=== PATIENT | female | born 1980 | race Caucasian/White ===

== ENCOUNTER 2018-09-27 14:04 | Emergency (ER) | payer OTHER ==
--- OUTSIDE RECORDS SUMMARY | 2018-09-27 14:06 | XMS REPORT | Clinical Summary ---
:1980 Author Organization [facility] Address [address] [place] [address] Care Team Providers Name Role Phone Jono Nunez Primary Care Provider Allergies No Known Allergies Medications Medication Sig Dispensed Refills Start Date End Date Status desvenlafaxine Take 100 mg by 0 Active succinate (PRISTIQ) 50 mouth daily . MG 24 hr tablet morphine (MS CONTIN) Take 15 mg by 0 Active 15 MG 12 hr tablet mouth 2 (two) times daily. naloxegol 12.5 mg Oral Take 25 mg by 0 Active Tab tablet mouth daily. morphine-naltrexone Take by mouth 0 Active (EMBEDA) 30-1.2 mg daily. CEPO pregabalin (LYRICA) Take 150 mg by 0 Active 150 MG capsule mouth 2 (two) times daily. celecoxib (CELEBREX) Take 200 mg by 0 Active 200 MG capsule mouth every 12 (twelve) hours as needed for Pain. estradiol (ESTRING) 2 Place 2 mg 0 Active mg (7.5 mcg /24 hour) vaginally every 3 vaginal ring (three) months follow package directions . melatonin 3 mg Tab Take by mouth. 0 Active tablet oxyCODONE-acetaminophe Take 1 tablet by 0 Active n (PERCOCET) 10-325 mg mouth every 6 per tablet (six) hours as needed for Pain. Active Problems Problem Noted Date S/P cervical spinal fusion 02/01/2017 Neck pain 01/19/2017 Cervical radiculopathy 01/19/2017 Cervical herniated disc 01/19/2017 Family History Medical History Relation Name Comments Unremarkable Neg Hx Social History Tobacco Use Types Packs/Day Years Used Date Never Smoker Smokeless Tobacco: Never Used Alcohol Use Drinks/Week oz/Week Comments Yes 4 Standard drinks or equivalent 2.0 Sex Assigned at Date Recorded Not on file Job Start Date Occupation Industry Not on file Not on file Not on file Travel History Travel Start Travel End No recent travel history available. Last Filed Vital Signs Not on file Plan of Treatment Not on file Implants Implanted Type Area Ceramic Designer Device Shelf Model / Identifier Expiration Serial / Date Lot Matrix Floseal Hemo W/O Ndl 10 [id number] - [id number] Cement/Fi N/A: Spine KAUR:BIOSCI 05/05/2018 [id number] / Implanted: Qty: 1 on 02/01/2017 by Bar Hamilton MD ller/Adhe / sive [id number] Disc Prodisc-C Med Deep 5mm - [id number] Spine N/A: Spine SYNTHES:SYNTHES 08/11/2020 [id number] / Implanted: Qty: 1 on 02/01/2017 by Bar Hamilton MD Cervical [place]: SPINE / [id number] Retainer Screw N/A: Spine [id number] / Implanted: Qty: 2 on 02/01/2017 by Bar Hamilton MD Cervical / Results Not on fileafter 09/26/2017 Insurance Payer Benefit Plan / Subscriber ID Type Phone Address Group MEDICAID - MEDICAID MEDICAID COMM xxxxxxxxx Medicaid Contracted [facility] CHO[facility] Advance Directives For more information, please contact:[address] [phone] Code Status Date Activated Date Inactivated Comments Full Code 01/19/2017 9:09 AM 01/19/2017 9:23 AM This code status was determined by: Patient
--- OUTSIDE RECORDS SUMMARY | 2018-09-27 14:06 | XMS REPORT ---
:1980 [facility] Address [address] [place] [address] Care Team Providers Name Role Phone ELLEN AVILES Unavailable Unavailable Problems This patient has no known problems. Allergies, Adverse Reactions, Alerts This patient has no known allergies or adverse reactions. Medications This patient has no known medications. Results Test Description Test Time Test Comments Text Results Atomic Results Result Comments CBC W/PLT COUNT & AUTO DIFFERENTIAL 2017-02-01 09:41:00 Test Item Value Reference Range Comments WHITE BLOOD CELL COUNT (BEAKER) (test bkvr=540) 7.4 K/ L 4.0-10.0 RED BLOOD CELL COUNT (BEAKER) (test wdpf=874) 4.29 M/ L 4.00-5.00 HEMOGLOBIN (BEAKER) (test kkqa=830) 13.7 GM/DL 12.0-15.0 HEMATOCRIT (BEAKER) (test xfxk=316) 40.7 % 36.0-45.0 MEAN CORPUSCULAR VOLUME (BEAKER) (test fgfs=677) 94.8 fL 82.0-99.0 MEAN CORPUSCULAR HEMOGLOBIN (BEAKER) (test vtcw=660) 31.8 pg 27.0-33.0 MEAN CORPUSCULAR HEMOGLOBIN CONC (BEAKER) (test msnc=672) 33.6 GM/DL 32.0- 36.0 RED CELL DISTRIBUTION WIDTH (BEAKER) (test wkdd=658) 12.8 % 12.0-15.0 PLATELET COUNT (BEAKER) (test mryo=167) 211 K/CU MM 150-430 MEAN PLATELET VOLUME (BEAKER) (test kiwg=155) 8.4 fL 6.5-10.5 NUCLEATED RED BLOOD CELLS (BEAKER) (test xbed=490) 0 /100 WBC 0-0 NEUTROPHILS RELATIVE PERCENT (BEAKER) (test ujkc=303) 59 % LYMPHOCYTES RELATIVE PERCENT (BEAKER) (test wrkz=928) 34 % MONOCYTES RELATIVE PERCENT (BEAKER) (test wufo=488) 6 % EOSINOPHILS RELATIVE PERCENT (BEAKER) (test tquw=517) 1 % BASOPHILS RELATIVE PERCENT (BEAKER) (test yeub=176) 1 % NEUTROPHILS ABSOLUTE COUNT (BEAKER) (test cgfv=682) 4.40 K/ L 1.80-8.00 LYMPHOCYTES ABSOLUTE COUNT (BEAKER) (test oxgp=575) 2.50 K/ L 1.48-4.50 MONOCYTES ABSOLUTE COUNT (BEAKER) (test ilxy=725) 0.40 K/ L 0.00-1.30 EOSINOPHILS ABSOLUTE COUNT (BEAKER) (test qeic=163) 0.10 K/ L 0.00-0.50 BASOPHILS ABSOLUTE COUNT (BEAKER) (test usvu=747) 0.00 K/ L 0.00-0.20 BASIC METABOLIC [id number] 14:58:00 Test Item Value Reference Range Comments SODIUM (BEAKER) (test 141 meq/L 135-148 nuhy=000) POTASSIUM (BEAKER) (test 4.1 meq/L 3.5-5.5 jjkd=072) CHLORIDE (BEAKER) (test 106 meq/L 98-106 wjhq=328) CO2 (BEAKER) (test 27 meq/L 20-31 sfal=567) BLOOD UREA NITROGEN 13 mg/dL 10-26 (BEAKER) (test qcfy=479) CREATININE (BEAKER) (test 0.75 mg/dL 0.50-1.20 aqwo=762) GLUCOSE RANDOM (BEAKER) 103 mg/dL 70-110 (test dssb=102) CALCIUM (BEAKER) (test 9.3 mg/dL 8.5-10.5 pluu=944) EGFR (BEAKER) (test 87 mL/min/1.73 sq m ESTIMATED GFR IS NOT vmzf=5803) ACCURATE CREATININE CLEARANCE IN PREDICTING GLOMERULAR FILTRATION RATE. ESTIMATED GFR IS NOT APPLICABLE FOR DIALYSIS PATIENTS. CBC W/PLT COUNT & AUTO [id number] 14:40:00 Test Item Value Reference Range Comments WHITE BLOOD CELL COUNT (BEAKER) (test yswf=929) 7.7 K/ L 4.0-10.0 RED BLOOD CELL COUNT (BEAKER) (test lqja=207) 4.39 M/ L 4.00-5.00 HEMOGLOBIN (BEAKER) (test hfkt=628) 14.1 GM/DL 12.0-15.0 HEMATOCRIT (BEAKER) (test jbdh=676) 42.1 % 36.0-45.0 MEAN CORPUSCULAR VOLUME (BEAKER) (test albq=365) 95.9 fL 82.0-99.0 MEAN CORPUSCULAR HEMOGLOBIN (BEAKER) (test 32.2 pg 27.0-33.0 ifjw=732) MEAN CORPUSCULAR HEMOGLOBIN CONC (BEAKER) (test 33.6 GM/DL 32.0-36.0 twxe=380) RED CELL DISTRIBUTION WIDTH (BEAKER) (test 13.6 % 12.0-15.0 pklz=436) PLATELET COUNT (BEAKER) (test fwjq=604) 199 K/CU MM 150-430 MEAN PLATELET VOLUME (BEAKER) (test qdxi=038) 8.6 fL 6.5-10.5 NUCLEATED RED BLOOD CELLS (BEAKER) (test 0 /100 WBC 0-0 dbcv=030) NEUTROPHILS RELATIVE PERCENT (BEAKER) (test 53 % kzmp=697) LYMPHOCYTES RELATIVE PERCENT (BEAKER) (test 37 % bbsz=910) MONOCYTES RELATIVE PERCENT (BEAKER) (test 8 % khbi=060) EOSINOPHILS RELATIVE PERCENT (BEAKER) (test 2 % klal=147) BASOPHILS RELATIVE PERCENT (BEAKER) (test 1 % tosg=610) NEUTROPHILS ABSOLUTE COUNT (BEAKER) (test 4.00 K/ L 1.80-8.00 sczi=513) LYMPHOCYTES ABSOLUTE COUNT (BEAKER) (test 2.80 K/ L 1.48-4.50 naew=315) MONOCYTES ABSOLUTE COUNT (BEAKER) (test 0.60 K/ L 0.00-1.30 kvjs=095) EOSINOPHILS ABSOLUTE COUNT (BEAKER) (test 0.10 K/ L 0.00-0.50 upju=970) BASOPHILS ABSOLUTE COUNT (BEAKER) (test 0.00 K/ L 0.00-0.20 yiho=583)
--- NOTE | 2018-09-27 15:55 | RAD REPORT ---
EXAM DESCRIPTION: RAD - Chest Single View - 09/27/2018 3:45 pm CLINICAL HISTORY: COUGH Chest pain. COMPARISON: CHEST SINGLE VIEW dated 06/26/2015; CHEST SINGLE VIEW dated 11/09/2014; ABDOMEN ACUTE SERI ES dated 10/23/2007 FINDINGS: Portable technique limits examination quality. The lungs are grossly clear. The heart is normal in size. No displaced fractures. IMPRESSION: No acute intrathoracic process suspected.
[2018-09-27 16:05] LABS: Absolute Monocytes 0.6 K/uL (0.1-1.3); Absolute Neutrophil 5.6 K/uL (1.8-8.0); Basophils % 0.6 % (0-1.3); Eosinophils % 0.6 % (0-4.4); Hematocrit 41.6 % (36.0-45.0); Lymphocytes % 24.4 % (15.3-44.8); Monocytes % 7.5 % (3.3-12.3); RBC Red Blood Cell Count 4.16 M/uL (3.86-4.86)
[2018-09-27 16:06] LABS: Protime INR 0.99
[2018-09-27] MEDS ORDERED: PROMETHAZINE 25 MG/ML VIAL ONE ×2 (16:08→16:44)
[2018-09-27] MEDS ORDERED: FAMOTIDINE 20 MG/2 ML VIAL IV ONE (16:08)
[2018-09-27] MEDS ORDERED: NA CHLORIDE 0.9% 2,000 ML ONE (16:08)
[2018-09-27 16:13] LABS: Barbiturates POSITIVE (NEGATIVE); Benzodiazepines NEGATIVE (NEGATIVE); Cocaine NEGATIVE (NEGATIVE); METHAMPHETAM NEGATIVE (NEGATIVE); Methadone NEGATIVE (NEGATIVE); Opiates NEGATIVE (NEGATIVE); Phencyclidine NEGATIVE (NEGATIVE); THC Cannibis POSITIVE (NEGATIVE)
[2018-09-27 16:21] LABS: ALT/SGPT 57 U/L (12-78); AST/SGOT 22 U/L (15-37); Albumin 3.7 g/dL (3.4-5.0); Alkaline Phosphatase 67 U/L (45-117); BUN Blood Urea Nitrogen 14 mg/dL (7-18); Bicarbonate 25 mmol/L (21-32); Bilirubin Direct < 0.1 mg/dL (0-0.2); Bilirubin Total 0.3 mg/dL (0.2-1.0); Glucose Level 87 mg/dL (74-106); Lipase 73 U/L (73-393); Magnesium 2.3 mg/dL (1.8-2.4); NT PRO-BNP 9 pg/mL (<125); Potassium 4.1 mmol/L (3.5-5.1); Sodium Level 142 mmol/L (136-145); Troponin (Emerg Dept Use Only) < 0.02 ng/mL (0.0-0.045)
--- NOTE | 2018-09-27 17:10 | EKG ---
Test Date: 2018-09-27 Test Time: 14:13:34 Supervisor Powdered Metal: SEAN-Shirley MEASUREMENT RESULTS: Intervals: Rate: 132 AK: 140 QRSD: 68 QT: 294 QTc: 435 [place]: P: 50 AK: 140 QRS: 63 T: 84 INTERPRETIVE STATEMENTS: Sinus tachycardia Possible Left atrial enlargement Septal infarct, age undetermined Non specific ST abnrmality Abnormal ECG Compared to ECG 06/26/2015 12:42:29 ST (T wave) deviation now present Sinus rhythm no longer present Myocardial infarct finding still present Electronically Signed On 09-27-18 17:09:33 CDT by Ghanshyam Sagastume
--- NOTE | 2018-09-27 17:29 | RAD REPORT ---
EXAM DESCRIPTION: CTAbdomen Pelvis W Contrast - 09/27/2018 5:19 pm CLINICAL HISTORY: Abdominal pain. ABD PAIN COMPARISON: Abdomen Pelvis W Contrast dated 12/31/2016; CT ABD PELVIS W CONTRAST dated 11/09/2014; C T ABD PELVIS W CONTRAST dated 04/10/2013; CT ABD PELVIS W CONTRAST dated 10/24/2007bdomen Pelvis W Contrast dated 12/31/2016; CT ABD PELVIS W CONTRAST dated 11/09/2014; CT ABD PELVIS W CONTRAST dated ; CT ABD PELVIS W CONTRAST dated 10/24/2007; MRI ABDOMEN W WO CONTRAST dated 04/11/2013 TECHNIQUE: Biphasic CT imaging of the abdomen and pelvis was performed with 100 ml non-ionic IV cont rast. All CT scans are performed using dose optimization technique as appropriate and may include automated exposure control or mA/KV adjustment according to patient size. FINDINGS: Heavily calcified granuloma is present in the left lung base posteriorly. The liver contains several small cysts, benign in appearance. Several enhancing lesions are also pres ent which appear progressive since the comparative studies. Benign etiology, however, is suspected fo r these lesions such as multiple hemangiomas. Cholecystectomy clips. The spleen, right adrenal gland and pancreas are within normal limits. Prominent cyst is present in t he left kidney measuring 3 cm. Stable left adrenal mass measuring 2.8 cm. No bowel obstruction, free air, free fluid or abscess. Mild sigmoid diverticulosis without diverticul itis. Appendectomy. No evidence of significant lymphadenopathy. No suspicious bony findings. IMPRESSION: Several small enhancing liver lesions are present, mildly progressive in size since comp arative studies, however most compatible with multiple hemangiomas. Stable left adrenal mass. No acute abnormality is detected.
--- NOTE | 2018-09-27 17:34 | ER ---
Nurse's Notes [facility] Name: Chantal Navarro Age: 38 yrs Sex: Female : 1980 Arrival Date: 09/27/2018 Time: 14:06 Bed 4 Private MD: Cristofer Ayala E Diagnosis: Abdominal tenderness;Nausea and vomiting;Nausea Presentation: 09/27 14:08 Presenting complaint: Patient states: lower abd pain, low back pain, midsternal chest sv pain started yesterday. Was dx with kidney infection 1.5 weeks ago and placed on Augmentin and has finished that med. Transition of care: patient was not received from another setting of care. Onset of symptoms was September 26, 2018. Care prior to arrival: None. 14:08 Method Of Arrival: Ambulatory sv 14:08 Acuity: GARRETT 2 sv 14:30 Risk Assessment: Do you want to hurt yourself or someone else? Patient reports no ph desire to harm self or others. Initial Sepsis Screen: Does the patient meet any 2 criteria? No. Patient's initial sepsis screen is negative. Does the patient have a suspected source of infection? No. Patient's initial sepsis screen is negative. Historical: - Allergies: 14:11 No Known Allergies; sv - PMHx: 14:11 chronic neck and back pain; Depression; sv - PSHx: 14:11 Hysterectomy; Appendectomy; MASS REMOVAL R breast; Cholecystectomy; Tonsillectomy; sv POLYPS removed from colon; right knee; L ankle; - Immunization history:: Adult Immunizations unknown. - Social history:: Smoking status: Patient/guardian denies using tobacco. - Family history:: not pertinent. - Ebola Screening: : No symptoms or risks identified at this time. Screenin:34 Abuse screen: Denies threats or abuse. Denies injuries from another. Nutritional ph screening: No deficits noted. Tuberculosis screening: No symptoms or risk factors identified. Fall Risk None identified. Assessment: 15:00 General: Appears in no apparent distress. uncomfortable, ill, Behavior is calm, ph cooperative, appropriate for age. Pain: Complains of pain in lumbar area, left low back and right low back Pain radiates to suprapubic area, right lower quadrant and left lower quadrant. Neuro: Level of Consciousness is awake, alert, obeys commands, Oriented to person, place, time, situation, Reports dizziness, weakness in "all over". Cardiovascular: Capillary refill < 3 seconds in bilateral fingers Patient's skin is warm and dry. Respiratory: Airway is patent Respiratory effort is even, unlabored, Respiratory pattern is regular, symmetrical. GI: Abdomen is round non-distended, Bowel sounds present X 4 quads. Abd is soft X 4 quads Abdomen is tender to palpation X 4 quads. Reports diarrhea, nausea, Patient currently denies vomiting. : Reports pain in bilateral in suprapubic area flank(s), lower quadrant(s) in lower back Denies burning with urination, inability to void. Derm: Skin is intact, Skin is pale. Musculoskeletal: Circulation, motion, and sensation intact. Range of motion: intact in all extremities. 16:35 Reassessment: Patient appears in no apparent distress at this time. Patient and/or ph family updated on plan of care and expected duration. Pain level reassessed. Patient is alert, oriented x 3, equal unlabored respirations, skin warm/dry/pink. Pt reports that nausea has not improved, ERP notified, see MAR. 17:03 Reassessment: Patient appears in no apparent distress at this time. Patient and/or ph family updated on plan of care and expected duration. Pain level reassessed. Patient is alert, oriented x 3, equal unlabored respirations, skin warm/dry/pink. Pt taken to CT via stretcher. Vital Signs: 14:11 BP 113 / 96; Pulse 130; Resp 20; Temp 98.4; Pulse Ox 96% ; Weight 77.11 kg; Height 5 sv ft. 2 in. (157.48 cm); Pain 8/10; 15:30 BP 110 / 79; Pulse 105; Resp 18; Pulse Ox 98% on R/A; ph 16:30 BP 105 / 81; Pulse 95; Resp 16; Pulse Ox 98% on R/A; ph 17:30 BP 107 / 78; Pulse 87; Resp 18; Temp 98.0; Pulse Ox 99% on R/A; ph 14:11 Body Mass Index 31.09 (77.11 kg, 157.48 cm) sv ED Course: 14:06 Patient arrived in ED. mr 14:06 Cristofer Ayala MD is Private Physician. mr 14:10 Triage completed. sv 14:11 Arm band placed on. sv 14:19 EKG done, by technical service representative. reviewed by Mao Rodriguez MD. sm3 14:23 Mao Rodriguez MD is Attending Physician. jose miguel 15:33 Theresa Burton RN is Primary Nurse. ph 15:34 Inserted saline lock: 20 gauge in right hand, using aseptic technique. Missed ph attempt(s): 22 gauge in right antecubital area. Bleeding controlled, band aid applied, catheter tip intact. 15:35 Patient has correct armband on for positive identification. ph 15:45 XRAY Chest (1 view) In Process Unspecified. EDMS 16:06 Basic Metabolic Panel Sent. ph 16:[address] 2 17:07 No provider procedures requiring assistance completed. ph 17:19 CT Abd/Pelvis - W/Contrast In Process Unspecified. EDMS 17:33 Cristofer Ayala MD is Referral Physician. jose miguel 17:33 Maynor Dinero MD is Referral Physician. jose miguel 17:55 IV discontinued, intact, bleeding controlled, No redness/swelling at site. Pressure ph dressing applied. Administered Medications: 16:03 Drug: NS 0.9% 1000 ml Route: IV; Rate: 1 bolus; Site: right hand; ph 16:03 Drug: NS 0.9% 1000 ml Route: IV; Rate: 1 bolus; Site: right hand; ph 16:05 Drug: Phenergan 12.5 mg Route: IVP; Site: right hand; ph 17:22 Follow up: Response: No adverse reaction; Nausea unchanged ph 16:05 Drug: Pepcid 20 mg Route: IVP; Site: right hand; ph 17:23 Follow up: Response: No adverse reaction ph 16:45 Drug: Phenergan 12.5 mg Route: IVP; Site: right hand; ph 17:23 Follow up: Response: No adverse reaction; Nausea is decreased ph Outcome: 17:33 Discharge ordered by . jose miguel 17:55 Patient left the ED. iw 17:55 Discharged to home ambulatory, with family. ph 17:55 Condition: good 17:55 Discharge instructions given to patient, Instructed on discharge instructions, follow up and referral plans. medication usage, Demonstrated understanding of instructions, follow-up care, medications, Prescriptions given X 4. Signatures: Dispatcher [employer] Merary Antonio RN RN sv Anderson, Corey, MD MD cha Rivera, Mary mr Noa Scott, RN RN Theresa Burton RN RN Maddy Gonzalez 2 Hawa Kincaid 3 Corrections: (The following items were deleted from the chart) 14:12 14:08 Acuity: GARRETT 3 sv sv 17:03 14:35 Reassessment: Patient appears in no apparent distress at this time. Patient ph and/or family updated on plan of care and expected duration. Pain level reassessed. Patient is alert, oriented x 3, equal unlabored respirations, skin warm/dry/pink. Pt reports that nausea has not improved, ERP notified, see MAR ph
--- NOTE | 2018-09-27 17:34 | EDPHYS ---
Physician Documentation [facility] Name: Chantal Navarro Age: 38 yrs Sex: Female : 1980 Arrival Date: 09/27/2018 Time: 14:06 Bed 4 Private MD: Cristofer Ayala E ED Physician Mao Rodriguez HPI: 09/27 15:17 This 38 yrs old Female presents to ER via Ambulatory with complaints of jose miguel Abdominal Pain, Back Pain, Nausea. 15:17 The patient presents with pain that is acute. jose miguel 15:18 The patient presents with abdominal pain in the upper abdomen, in the lower abdomen, jose miguel abdominal distention in the upper abdomen, in the lower abdomen. Onset: The symptoms/episode began/occurred 2 day(s) ago. The symptoms are located in the low back. 15:19 Onset: The symptoms/episode began/occurred 2 day(s) ago. The pain does not radiate. jose miguel Associated signs and symptoms: Pertinent positives: abdominal pain. Severity of symptoms: At their worst the symptoms were moderate, in the emergency department the symptoms are unchanged. Historical: - Allergies: 14:11 No Known Allergies; sv - PMHx: 14:11 chronic neck and back pain; Depression; sv - PSHx: 14:11 Hysterectomy; Appendectomy; MASS REMOVAL R breast; Cholecystectomy; Tonsillectomy; sv POLYPS removed from colon; right knee; L ankle; - Immunization history:: Adult Immunizations unknown. - Social history:: Smoking status: Patient/guardian denies using tobacco. - Family history:: not pertinent. - Ebola Screening: : No symptoms or risks identified at this time. ROS: 15:19 Constitutional: Negative for fever, chills, and weight loss, Eyes: Negative for injury, jose miguel pain, redness, and discharge, ENT: Negative for injury, pain, and discharge, Neck: Negative for injury, pain, and swelling, Cardiovascular: Negative for chest pain, palpitations, and edema, Respiratory: Negative for shortness of breath, cough, wheezing, and pleuritic chest pain, Back: Negative for injury and pain, : Negative for injury, bleeding, discharge, and swelling, MS/Extremity: Negative for injury and deformity, Skin: Negative for injury, rash, and discoloration, Neuro: Negative for headache, weakness, numbness, tingling, and seizure, Psych: Negative for depression, anxiety, suicide ideation, homicidal ideation, and hallucinations, Allergy/Immunology: Negative for hives, rash, and allergies, Endocrine: Negative for neck swelling, polydipsia, polyuria, polyphagia, and marked weight changes, Hematologic/Lymphatic: Negative for swollen nodes, abnormal bleeding, and unusual bruising. 15:19 Abdomen/GI: Positive for abdominal pain, nausea, vomiting, of the right upper quadrant, left upper quadrant, right lower quadrant and left lower quadrant. Exam: 15:20 Constitutional: This is a well developed, well nourished patient who is awake, alert, jose miguel and in no acute distress. Head/Face: Normocephalic, atraumatic. Eyes: Pupils equal round and reactive to light, extra-ocular motions intact. Lids and lashes normal. Conjunctiva and sclera are non-icteric and not injected. Cornea within normal limits. Periorbital areas with no swelling, redness, or edema. ENT: Nares patent. No nasal discharge, no septal abnormalities noted. Tympanic membranes are normal and external auditory canals are clear. Oropharynx with no redness, swelling, or masses, exudates, or evidence of obstruction, uvula midline. Mucous membranes moist. Neck: Trachea midline, no thyromegaly or masses palpated, and no cervical lymphadenopathy. Supple, full range of motion without nuchal rigidity, or vertebral point tenderness. No Meningismus. Chest/axilla: Normal chest wall appearance and motion. Nontender with no deformity. No lesions are appreciated. Respiratory: Lungs have equal breath sounds bilaterally, clear to auscultation and percussion. No rales, rhonchi or wheezes noted. No increased work of breathing, no retractions or nasal flaring. Back: No spinal tenderness. No costovertebral tenderness. Full range of motion. Female : Normal external genitalia. Skin: Warm, dry with normal turgor. Normal color with no rashes, no lesions, and no evidence of cellulitis. MS/ Extremity: Pulses equal, no cyanosis. Neurovascular intact. Full, normal range of motion. Neuro: Awake and alert, GCS 15, oriented to person, place, time, and situation. Cranial nerves II-XII grossly intact. Motor strength 5/5 in all extremities. Sensory grossly intact. Cerebellar exam normal. Normal gait. Psych: Awake, alert, with orientation to person, place and time. Behavior, mood, and affect are within normal limits. 15:20 Cardiovascular: Rate: tachycardic, Rhythm: regular, Pulses: no pulse deficits are appreciated, Heart sounds: normal, Edema: is not appreciated, JVD: is not appreciated. 15:21 Musculoskeletal/extremity: DVT Exam: No signs of deep vein thrombosis. no pain, no jose miguel swelling, no tenderness, negative Homans' sign noted on exam, no appreciated bluish discoloration, no erythema, no increased warmth. Vital Signs: 14:11 BP 113 / 96; Pulse 130; Resp 20; Temp 98.4; Pulse Ox 96% ; Weight 77.11 kg; Height 5 sv ft. 2 in. (157.48 cm); Pain 8/10; 15:30 BP 110 / 79; Pulse 105; Resp 18; Pulse Ox 98% on R/A; ph 16:30 BP 105 / 81; Pulse 95; Resp 16; Pulse Ox 98% on R/A; ph 17:30 BP 107 / 78; Pulse 87; Resp 18; Temp 98.0; Pulse Ox 99% on R/A; ph 14:11 Body Mass Index 31.09 (77.11 kg, 157.48 cm) sv MDM: 14:23 Patient medically screened. [facility] 15:21 Data reviewed: vital signs, nurses notes, lab test result(s), EKG, radiologic studies, [facility] CT scan, plain films. 09/27 15:17 Order name: Basic Metabolic Panel [facility] 09/27 15:17 Order name: CBC with Diff; Complete Time: 16:14 [facility] 09/27 15:17 Order name: LFT's; Complete Time: 16:56 [facility] 09/27 15:17 Order name: Magnesium; Complete Time: 16:56 [facility] 09/27 15:17 Order name: NT PRO-BNP; Complete Time: 16:56 [facility] 09/27 15:17 Order name: PT-INR; Complete Time: 16:14 [facility] 09/27 15:17 Order name: Troponin (emerg Dept Use Only); Complete Time: 16:56 [facility] 09/27 15:17 Order name: XRAY Chest (1 view); Complete Time: 16:14 [facility] 09/27 15:17 Order name: Lipase; Complete Time: 16:56 [facility] 09/27 15:17 Order name: UDS; Complete Time: 16:56 jose miguel 09/27 15:17 Order name: Urine Culture [facility] 09/27 15:19 Order name: Basic Metabolic Panel; Complete Time: 16:56 EDMS 09/27 17:36 Order name: Urine Dipstick--Ancillary (enter results) 09/27 17:36 Order name: Urine --Ancillary (enter results) 09/27 14:12 Order name: EKG; Complete Time: 14:12 sv 09/27 14:12 Order name: EKG - Nurse/Tech; Complete Time: 14:32 sv 09/27 15:17 Order name: Cardiac monitoring; Complete Time: 16:05 jose miguel 09/27 15:17 Order name: IV Saline Lock; Complete Time: 16:05 jose miguel 09/27 15:17 Order name: Labs collected and sent; Complete Time: 16:06 [facility] 09/27 15:17 Order name: O2 Per Protocol; Complete Time: 16:06 jose miguel 09/27 15:17 Order name: O2 Sat Monitoring; Complete Time: 16:06 jose miguel 09/27 15:17 Order name: Urine Dipstick-Ancillary (obtain specimen); Complete Time: 15:50 [facility] 09/27 15:17 Order name: Urine Test (obtain specimen); Complete Time: 15:51 jose miguel 09/27 16:56 Order name: CT Abd/Pelvis - W/Contrast; Complete Time: 17:32 jose miguel Administered Medications: 16:03 Drug: NS 0.9% 1000 ml Route: IV; Rate: 1 bolus; Site: right hand; ph 16:03 Drug: NS 0.9% 1000 ml Route: IV; Rate: 1 bolus; Site: right hand; ph 16:05 Drug: Phenergan 12.5 mg Route: IVP; Site: right hand; ph 17:22 Follow up: Response: No adverse reaction; Nausea unchanged ph 16:05 Drug: Pepcid 20 mg Route: IVP; Site: right hand; ph 17:23 Follow up: Response: No adverse reaction ph 16:45 Drug: Phenergan 12.5 mg Route: IVP; Site: right hand; ph 17:23 Follow up: Response: No adverse reaction; Nausea is decreased ph Disposition: 09/27/18 17:33 Discharged to Home. Impression: Abdominal tenderness, Nausea and vomiting, Nausea. - Condition is Stable. - Discharge Instructions: Abdominal Pain, Adult, Nausea, Adult, Nausea and Vomiting, Adult, [id number], Abdominal Pain, Adult, [id number]. - Prescriptions for Bentyl 20 mg Oral Tablet - take 1 tablet by ORAL route every 6 hours As needed; 20 tablet. Pepcid 20 mg Oral Tablet - take 1 tablet by ORAL route every 12 hours for 10 days; 20 tablet. Zofran 4 mg Oral Tablet - take 1 tablet by ORAL route every 12 hours As needed; 20 tablet. promethazine 25 mg Oral Tablet - take 1 tablet by ORAL route every 6 hours As needed; 12 tablet. - Medication Reconciliation Form, Thank You Letter, Antibiotic Education, Prescription Opioid Use form. - Follow up: Cristofer Ayala; When: 2 - 3 days; Reason: Recheck today's complaints, Continuance of care, Re-evaluation by your physician. Follow up: Maynor Dinero; When: 2 - 3 days; Reason: Recheck today's complaints, Re-evaluation by your physician. - Problem is new. - Symptoms have improved. Signatures: Dispatcher [employer] EDMerary Bowen, CARLOS RN Mao Whatley MD MD cha Williams, Irene, RN RN iw Theresa Burton RN RN ph Corrections: (The following items were deleted from the chart) 17:55 17:33 09/27/2018 17:33 Discharged to Home. Impression: Abdominal tenderness; Nausea and iw vomiting; Nausea. Condition is Stable. Discharge Instructions: Abdominal Pain, Adult, Nausea, Adult, Nausea and Vomiting, Adult, Amnj-[id number], Abdominal Pain, Adult, Oemg-rm-Hucq. Prescriptions for Bentyl 20 mg Oral Tablet - take 1 tablet by ORAL route every 6 hours As needed; 20 tablet, Pepcid 20 mg Oral Tablet - take 1 tablet by ORAL route every 12 hours for 10 days; 20 tablet, Zofran 4 mg Oral Tablet - take 1 tablet by ORAL route every 12 hours As needed; 20 tablet. and Forms are Medication Reconciliation Form, Thank You Letter, Antibiotic Education, Prescription Opioid Use. Follow up: Cristofer Ayala; When: 2 - 3 days; Reason: Recheck today's complaints, Continuance of care, Re-evaluation by your physician. Follow up: Maynor Dinero; When: 2 - 3 days; Reason: Recheck today's complaints, Re-evaluation by your physician. Problem is new. Symptoms have improved. jose miguel
[2018-09-27 18:04] VITALS: TEMP 98.4
[2018-09-27 18:07] VITALS: O2SAT 98
[2018-09-27 18:08] VITALS: BP 105/81
[2018-09-27 18:46] LABS: Urine Blood NEGATIVE (NEG); Urine Glucose NEGATIVE (NEG); Urine Protein NEGATIVE (NEG); Urine Specific Gravity 1.015 (1.005-1.030); Urine pH 7.5 (5.0-7.0)
== END 2018-09-27 17:55 | disposition home or self-care (01) ==
LOC: ER 14:04
DX: R11.2 Nausea with vomiting, unspecified (principal)
CPT/HCPCS: 36415; 71045; 74177; 80048; 80076; 80307; 81003; 81025; 83690; 83735; 83880; 84484; 85025; 85610; 87086; 87088; 93005; 96374; 96375; 99284; J2550; J7030; Q9967

== ENCOUNTER 2019-03-13 14:28 | Emergency (ER) | payer OTHER, SELFPAY ==
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
--- NOTE | 2019-03-13 16:36 | RAD REPORT ---
EXAM DESCRIPTION: RAD - Lumbar Spine 3 Views - 03/13/2019 4:01 pm CLINICAL HISTORY: Back pain, radiculopathy COMPARISON: None. FINDINGS: A three-view lumbar spine examination was performed. Lumbar bodies are normal in height an d alignment. No fracture or acute bony process seen. No disc space narrowing. No other significant fi ndings. No pars defects identified. IMPRESSION: Negative Lumbar Spine examination.
[2019-03-13] MEDS ORDERED: METHYLPREDNISOLONE 125 MG INJ ONE (17:20)
[2019-03-13] MEDS ORDERED: MORPHINE 4 MG/ML SYR ONE (17:21)
[2019-03-13] MEDS ORDERED: DIAZEPAM 10 MG/2 ML INJ SYRINGE ONE (17:21)
[2019-03-13] MEDS ORDERED: ONDANSETRON 4 MG (ODT) TAB ONE (17:22)
--- NOTE | 2019-03-13 17:44 | EDPHYS ---
Physician Documentation [facility] Name: Chantal Navarro Age: 38 yrs Sex: Female : 1980 Arrival Date: 03/13/2019 Time: 14:31 Bed 16 Private MD: ED Physician Raffy Clement HPI: 03/13 17:40 This 38 yrs old Female presents to ER via Wheelchair with complaints of ma2 Abdominal Pain, Nausea. 17:40 Onset: The symptoms/episode began/occurred gradually, 2 day(s) ago. Associated signs ma2 and symptoms: Pertinent negatives: belching, constipation, GI bleeding, hematuria. Severity of symptoms: At their worst the symptoms were in the emergency department the symptoms are unchanged. The patient has experienced similar episodes in the past. lower back pain, no abd pain . Historical: - Allergies: 14:47 No Known Allergies; la1 - PMHx: 14:47 chronic neck and back pain; Depression; la1 - PSHx: 14:47 neck sx; Appendectomy; Cholecystectomy; Hysterectomy; Knee surgery; la1 - Immunization history:: Adult Immunizations up to date. - Social history:: Smoking status: Patient uses tobacco products, denies chronic smoking, but will smoke occasionally, Patient/guardian denies using alcohol, street drugs, The patient lives with family. - Ebola Screening: : No symptoms or risks identified at this time. - Family history:: not pertinent. ROS: 17:40 Constitutional: Negative for fever, chills, and weight loss, Cardiovascular: Negative ma2 for chest pain, palpitations, and edema, Respiratory: Negative for shortness of breath, cough, wheezing, and pleuritic chest pain. 17:40 Abdomen/GI: Negative for abdominal pain, nausea, diarrhea, and constipation. 17:40 Abdomen/GI: 17:40 All other systems are negative. Exam: 17:40 Constitutional: This is a well developed, well nourished patient who is awake, alert, ma2 and in no acute distress. Head/Face: Normocephalic, atraumatic. Eyes: Pupils equal round and reactive to light, extra-ocular motions intact. Lids and lashes normal. Conjunctiva and sclera are non-icteric and not injected. Cornea within normal limits. Periorbital areas with no swelling, redness, or edema. ENT: Nares patent. No nasal discharge, no septal abnormalities noted. Tympanic membranes are normal and external auditory canals are clear. Oropharynx with no redness, swelling, or masses, exudates, or evidence of obstruction, uvula midline. Mucous membranes moist. Neck: Trachea midline, no thyromegaly or masses palpated, and no cervical lymphadenopathy. Supple, full range of motion without nuchal rigidity, or vertebral point tenderness. No Meningismus. Chest/axilla: Normal chest wall appearance and motion. Nontender with no deformity. No lesions are appreciated. Cardiovascular: Regular rate and rhythm with a normal S1 and S2. No gallops, murmurs, or rubs. Normal PMI, no JVD. No pulse deficits. Respiratory: Lungs have equal breath sounds bilaterally, clear to auscultation and percussion. No rales, rhonchi or wheezes noted. No increased work of breathing, no retractions or nasal flaring. Abdomen/GI: Soft, non-tender, with normal bowel sounds. No distension or tympany. No guarding or rebound. No evidence of tenderness throughout. Skin: Warm, dry with normal turgor. Normal color with no rashes, no lesions, and no evidence of cellulitis. MS/ Extremity: Pulses equal, no cyanosis. Neurovascular intact. Full, normal range of motion. Neuro: Awake and alert, GCS 15, oriented to person, place, time, and situation. Cranial nerves II-XII grossly intact. Motor strength 5/5 in all extremities. Sensory grossly intact. Cerebellar exam normal. Normal gait. 17:40 Back: pain, that is very mild, that is mild, ROM is painful, normal spinal alignment noted, muscle spasm, is appreciated in the left low back and right low back, Straight leg raises: right lower extremity illicits pain, left lower extremity illicits pain, at 30 degrees. Vital Signs: 14:47 BP 130 / 90; Pulse 105; Resp 16; Temp 98.4; Pulse Ox 100% on R/A; Weight 86.18 kg; la1 Height 5 ft. 2 in. (157.48 cm); 14:47 Body Mass Index 34.75 (86.18 kg, 157.48 cm) la1 MDM: 16:45 Patient medically screened. ma2 17:40 Differential diagnosis: lower back pain n oneurodeficit or red flags such as fever or ma2 trauma. Data reviewed: vital signs, nurses notes. Counseling: I had a detailed discussion with the patient and/or guardian regarding: the historical points, exam findings, and any diagnostic results supporting the discharge/admit diagnosis, the presence of at least one elevated blood pressure reading (>120/80) during this emergency department visit, the need for outpatient follow up. Response to treatment: the patient's symptoms have markedly improved after treatment. 03/13 15:09 Order name: Lumbar Spine (3 Views) XRAY snw 03/13 16:38 Order name: RAD; Complete Time: 16:45 EDMS Administered Medications: 17:00 Drug: morphine 4 mg Route: IM; Site: left gluteus; bp 18:00 Follow up: Response: Pain is decreased bp 17:00 Drug: Valium 10 mg Route: IM; Site: left gluteus; bp 17:59 Follow up: Response: No adverse reaction bp 17:00 Drug: Zofran 4 mg Route: PO; bp 17:59 Follow up: Response: Nausea is decreased bp 17:00 Drug: MethylPREDNISolone Sodium Succinate 125 mg Route: IM; Site: left gluteus; bp 17:59 Follow up: Response: No adverse reaction bp Disposition: 03/13/19 17:43 Discharged to Home. Impression: Low back pain. - Condition is Stable. - Discharge Instructions: Back Pain, Adult. - Prescriptions for Tylenol- Codeine #3 300-30 mg Oral Tablet - take 2 tablet by ORAL route every 6 hours As needed; 30 tablet. Valium 10 mg Oral Tablet - take 1 tablet by ORAL route every 8 hours As needed; 20 tablet. Tramadol 50 mg Oral Tablet - take 1 tablet by ORAL route every 8 hours as needed; 12 tablet. Medrol (Philipp) 4 mg Oral Tablets, Dose Pack - take 1 tablet by ORAL route as directed - follow package instructions; 1 packet. - Medication Reconciliation Form, Thank You Letter, Antibiotic Education, Prescription Opioid Use form. - Follow up: Private Physician; When: Tomorrow; Reason: If symptoms return. Signatures: Dispatcher [facility] EDMS Bridger Garcia RN RN la1 Jono Otto RN RN bp Raffy Clement MD MD ma2 Corrections: (The following items were deleted from the chart) 16:00 16:00 03/13/2019 16:00 Patient left the facility before being seen by provider. Reason la1 stated they are leaving due to unknown. Condition is Stable. la1 16:34 16:00 03/13/2019 16:00 Patient left the facility before being seen by provider. Reason bp stated they are leaving due to unknown. Condition is Stable. la1 18:14 17:43 03/13/2019 17:43 Discharged to Home. Impression: Low back pain. Condition is bp Stable. Discharge Instructions: Back Pain, Adult. Prescriptions for Tylenol-Codeine #3 300-30 mg Oral Tablet - take 2 tablet by ORAL route every 6 hours As needed; 30 tablet, Valium 10 mg Oral Tablet - take 1 tablet by ORAL route every 8 hours As needed; 20 tablet, Tramadol 50 mg Oral Tablet - take 1 tablet by ORAL route every 8 hours as needed; 12 tablet, Medrol (Philipp) 4 mg Oral Tablets, Dose Pack - take 1 tablet by ORAL route as directed - follow package instructions; 1 packet. and Forms are Medication Reconciliation Form, Thank You Letter, Antibiotic Education, Prescription Opioid Use. Follow up: Private Physician; When: Tomorrow; Reason: If symptoms return. ma2
[2019-03-13 18:53] VITALS: BP 130/90; TEMP 98.4; O2SAT 100
== END 2019-03-13 18:14 | disposition home or self-care (01) ==
LOC: ER 14:28
DX: M54.5 Low back pain (principal); Z72.0 Tobacco use
CPT/HCPCS: 72100; 96372; 99283; J2930; J3360

== ENCOUNTER 2019-03-31 13:20 | Emergency (ER) | payer SELFPAY ==
[2019-03-31] MEDS ORDERED: NA CHLORIDE 0.9% 1,000 ML ONE ×2 (13:45→13:56)
[2019-03-31] MEDS ORDERED: MORPHINE 4 MG/ML SYR ONE (13:45)
[2019-03-31] MEDS ORDERED: ONDANSETRON 4 MG/2 ML VIAL ONE ×2 (13:45→13:55)
[2019-03-31] MEDS ORDERED: KETOROLAC 30 MG/ML INJ ONE ×2 (13:47→13:55)
[2019-03-31 14:01] LABS: Urine Blood NEGATIVE (NEG); Urine Glucose 1+ (NEG); Urine Protein 2+ (NEG); Urine Specific Gravity 1.015 (1.005-1.030); Urine pH 8.5 (5.0-7.0)
[2019-03-31 14:07] LABS: Absolute Lymphocytes (CBC) 2.9 K/uL (0.7-4.9); Basophils % 0.6 % (0-1.3); Hematocrit 40.6 % (36.0-45.0); Lymphocytes % 30.7 % (15.3-44.8); MPV 8.9 fL (7.6-11.3); RBC Red Blood Cell Count 4.22 M/uL (3.86-4.86)
[2019-03-31 14:20] LABS: ALT/SGPT 24 U/L (12-78); AST/SGOT 9 U/L (15-37); Albumin 3.9 g/dL (3.4-5.0); Alkaline Phosphatase 64 U/L (45-117); BUN Blood Urea Nitrogen 9 mg/dL (7-18); Bicarbonate 25 mmol/L (21-32); Bilirubin Direct < 0.1 mg/dL (0-0.2); Bilirubin Total 0.3 mg/dL (0.2-1.0); Glucose Level 96 mg/dL (74-106); Lipase 82 U/L (73-393); Potassium 3.7 mmol/L (3.5-5.1); Protein, Total 7.4 g/dL (6.4-8.2); Sodium Level 141 mmol/L (136-145)
--- NOTE | 2019-03-31 14:31 | RAD REPORT ---
EXAM DESCRIPTION: CT - Stone Protocol - 03/31/2019 2:06 pm CLINICAL HISTORY: Abdominal pain. Dysuria COMPARISON: September 2018 and 2014 TECHNIQUE: Computed axial tomography of the abdomen pelvis was obtained without oral or IV contrast. Lack of IV and oral contrast limits evaluation of solid organs, bowel, and vessels. Coronal reformat yvon images were obtained and reviewed. All CT scans are performed using dose optimization technique as appropriate and may include automated exposure control or mA/KV adjustment according to patient size. FINDINGS: Calcified granuloma left lower lobe A renal calculus is not seen. An ureteral calculus is not noted. A bladder calculus is not present. 3 .8 centimeter right renal cyst contains a tiny peripheral calcification 3.8 centimeter left adrenal adenoma unchanged. Right adrenal gland is unremarkable. Hepatic lesions are unchanged. The spleen, pancreas are unremarkable. Cholecystectomy Pessary is present within the pelvis. There is no evidence of diverticulitis. A large amount stool is present throughout colon. Appendectomy. Hysterectomy IMPRESSION: Negative for a genitourinary calculus
[2019-03-31] MEDS ORDERED: CEFTRIAXONE/SWI 1gm 1 GM/10 ML SYR ONE (14:32)
[2019-03-31] MEDS ORDERED: PROMETHAZINE 25 MG/ML VIAL ONE (14:32)
--- NOTE | 2019-03-31 14:38 | ER ---
Nurse's Notes [facility] Name: Chantal Navarro Age: 38 yrs Sex: Female : 1980 Arrival Date: 03/31/2019 Time: 13:22 Bed 5 Private MD: Diagnosis: Generalized abdominal pain;Acute cystitis Presentation: 03/31 13:36 Presenting complaint: Burning with urination and nausea z 1 week, right flank pain and hb vomiting since yesterday. Transition of care: patient was not received from another setting of care. Onset of symptoms was March 24, 2019. Risk Assessment: Do you want to hurt yourself or someone else? Patient reports no desire to harm self or others. Initial Sepsis Screen: Does the patient meet any 2 criteria? No. Patient's initial sepsis screen is negative. Does the patient have a suspected source of infection? No. Patient's initial sepsis screen is negative. Care prior to arrival: Medication(s) given: AZO. 13:36 Method Of Arrival: Ambulatory hb 13:36 Acuity: GARRETT 3 hb Historical: - Allergies: 13:31 No Known Drug Allergies; hb - PMHx: 13:31 chronic neck and back pain; Depression; hb - PSHx: 13:31 neck sx; Appendectomy; Cholecystectomy; Hysterectomy; Knee surgery; hb - Immunization history:: Adult Immunizations up to date. - Social history:: Smoking status: Patient/guardian denies using tobacco. - Ebola Screening: : No symptoms or risks identified at this time. Screenin:31 Abuse screen: Denies threats or abuse. Denies injuries from another. Nutritional hb screening: No deficits noted. Tuberculosis screening: No symptoms or risk factors identified. Fall Risk None identified. Assessment: 13:45 General: Appears in no apparent distress. uncomfortable, well groomed, Behavior is ph cooperative, appropriate for age, anxious, crying. Pain: Complains of pain in suprapubic area and right mid back. Neuro: Level of Consciousness is awake, alert, obeys commands, Oriented to person, place, time, situation. Cardiovascular: Capillary refill < 3 seconds in bilateral fingers Patient's skin is warm and dry. Respiratory: Airway is patent Respiratory effort is even, unlabored, Respiratory pattern is regular, symmetrical. GI: Reports lower abdominal pain, nausea, vomiting. : Reports burning with urination, pain in right in suprapubic area in lower back with urination, urinary frequency. Derm: Skin is intact, is healthy with good turgor, Skin is. Musculoskeletal: Circulation, motion, and sensation intact. Range of motion: intact in all extremities. 15:10 Reassessment: Patient appears in no apparent distress at this time. Patient and/or ph family updated on plan of care and expected duration. Pain level reassessed. Patient is alert, oriented x 3, equal unlabored respirations, skin warm/dry/pink. Pt resting quietly, d/c pending completion of IV fluids. 15:23 Reassessment: Patient appears in no apparent distress at this time. Patient and/or ph family updated on plan of care and expected duration. Pain level reassessed. Patient is alert, oriented x 3, equal unlabored respirations, skin warm/dry/pink. Pt d/c home w/ family. Vital Signs: 13:30 BP 134 / 99; Pulse 104; Resp 26; Temp 98.2(TE); Pulse Ox 97% on R/A; Pain 10/10; jb1 14:30 BP 127 / 92; Pulse 94; Resp 22; Pulse Ox 98% on R/A; ph 15:23 BP 114 / 86; Pulse 87; Resp 18; Temp 97.8; Pulse Ox 99% on R/A; ph ED Course: 13:22 Patient arrived in ED. as 13:24 Win Silva PA is PHCP. jr8 13:24 Edgar Kumar MD is Attending Physician. jr8 13:30 Arm band placed on. hb 13:34 Theresa [place], CARLOS is Primary Nurse. ph 13:36 Triage completed. hb 13:37 Patient has correct armband on for positive identification. Bed in low position. Call hb light in reach. Side rails up X 1. 13:47 Urine collected: clean catch specimen, cloudy, bright colored. jb1 14:00 Inserted saline lock: 22 gauge in right hand, using aseptic technique. ph 14:03 Patient moved to CA via wheelchair. nj 14:05 CT completed. Patient tolerated procedure well. Patient moved back from CA. nj 14:06 CT Stone Protocol In Process Unspecified. EDMS 15:24 No provider procedures requiring assistance completed. ph 15:24 IV discontinued, intact, bleeding controlled, No redness/swelling at site. Pressure ph dressing applied. Administered Medications: 13:59 Drug: TORadol - Ketorolac 15 mg Route: IVP; Site: right antecubital; hb 15:21 Follow up: Response: No adverse reaction ph 13:59 Drug: Zofran 4 mg Route: IVP; Site: right antecubital; hb 15:22 Follow up: Response: No adverse reaction; Nausea unchanged ph 14:40 Drug: morphine 4 mg Route: IVP; Site: right hand; ph 15:22 Follow up: Response: No adverse reaction; Pain is decreased; RASS: Drowsy (-1) ph 14:40 Drug: Phenergan 12.5 mg Route: IVP; Site: right hand; ph 15:22 Follow up: Response: No adverse reaction; Nausea is decreased ph 14:45 Drug: Rocephin - (cefTRIAXone) 2 grams Route: IVPB; Infused Over: 30 mins; Site: right ph hand; 15:22 Follow up: Response: No adverse reaction; IV Status: Completed infusion ph Outcome: 14:37 Discharge ordered by MD. delgado 15:24 Discharged to home ambulatory, with family. ph 15:24 Condition: improved 15:24 Discharge instructions given to patient, Instructed on discharge instructions, follow up and referral plans. medication usage, Demonstrated understanding of instructions, follow-up care, medications, Prescriptions given X 4. 15:25 Patient left the ED. ph Signatures: Dispatcher [employer] EDMS Delio Olivarez Amelia as Roszak, Josh, PA PA jr8 Hall, Patricia, RN RN Loren Sullivan RN RN Keagan Gant Corrections: (The following items were deleted from the chart) 13:40 13:36 Onset of symptoms was March 31, [address] [facility]
--- NOTE | 2019-03-31 14:38 | EDPHYS ---
Physician Documentation [facility] Name: Chantal Navarro Age: 38 yrs Sex: Female : 1980 Arrival Date: 03/31/2019 Time: 13:22 Bed 5 Private MD: ED Physician Edgar Kumar HPI: 03/31 14:02 This 38 yrs old Female presents to ER via Ambulatory with complaints of Flank jr8 Pain, Vomiting. 14:02 The patient complains of pain in the mid back area, left mid back and right mid back. jr8 The pain does not radiate. Onset: The symptoms/episode began/occurred today. Modifying factors: The symptoms are alleviated by nothing. the symptoms are aggravated by nothing. Associated signs and symptoms: Pertinent positives: nausea. Severity of pain: At its worst the pain was moderate. Pt reports stomach bug for the last week with nausea and vomiting, today began having abd pain pain and flank pain. Historical: - Allergies: 13:31 No Known Drug Allergies; hb - PMHx: 13:31 chronic neck and back pain; Depression; hb - PSHx: 13:31 neck sx; Appendectomy; Cholecystectomy; Hysterectomy; Knee surgery; hb - Immunization history:: Adult Immunizations up to date. - Social history:: Smoking status: Patient/guardian denies using tobacco. - Ebola Screening: : No symptoms or risks identified at this time. ROS: 14:04 Constitutional: Negative for fever, chills, and weight loss, Eyes: Negative for injury, jr8 pain, redness, and discharge, ENT: Negative for injury, pain, and discharge, Neck: Negative for injury, pain, and swelling, Cardiovascular: Negative for chest pain, palpitations, and edema, Respiratory: Negative for shortness of breath, cough, wheezing, and pleuritic chest pain, MS/Extremity: Negative for injury and deformity, Neuro: Negative for headache, weakness, numbness, tingling, and seizure. 14:04 Abdomen/GI: Positive for abdominal pain, nausea and vomiting. 14:04 Back: Positive for flank pain. Exam: 14:05 Constitutional: This is a well developed, well nourished patient who is awake, alert, jr8 and in no acute distress. Head/Face: Normocephalic, atraumatic. Eyes: Pupils equal round and reactive to light, extra-ocular motions intact. Lids and lashes normal. Conjunctiva and sclera are non-icteric and not injected. Cornea within normal limits. Periorbital areas with no swelling, redness, or edema. ENT: Mucous membranes moist. Neck: Trachea midline, no thyromegaly or masses palpated, and no cervical lymphadenopathy. Supple, full range of motion without nuchal rigidity, or vertebral point tenderness. No Meningismus. Chest/axilla: Normal chest wall appearance and motion. Nontender with no deformity. No lesions are appreciated. Cardiovascular: Regular rate and rhythm with a normal S1 and S2. No gallops, murmurs, or rubs. Normal PMI, no JVD. No pulse deficits. Respiratory: Lungs have equal breath sounds bilaterally, clear to auscultation. No rales, rhonchi or wheezes noted. No increased work of breathing, no retractions or nasal flaring. Abdomen/GI: Soft, non-tender, with normal bowel sounds. No distension or tympany. No guarding or rebound. No evidence of tenderness throughout. Back: No spinal tenderness. + CVA tenderness MS/ Extremity: Pulses equal, no cyanosis. Neurovascular intact. Full, normal range of motion. Vital Signs: 13:30 BP 134 / 99; Pulse 104; Resp 26; Temp 98.2(TE); Pulse Ox 97% on R/A; Pain 10/10; jb1 14:30 BP 127 / 92; Pulse 94; Resp 22; Pulse Ox 98% on R/A; ph 15:23 BP 114 / 86; Pulse 87; Resp 18; Temp 97.8; Pulse Ox 99% on R/A; ph MDM: 13:24 Patient medically screened. jr8 14:37 Data reviewed: vital signs, nurses notes, lab test result(s), radiologic studies, CT jr8 scan. Data interpreted: Pulse oximetry: on room air is 97 %. Interpretation: normal. Counseling: I had a detailed discussion with the patient and/or guardian regarding: the historical points, exam findings, and any diagnostic results supporting the discharge/admit diagnosis, lab results, radiology results, the need for outpatient follow up, a family practitioner, to return to the emergency department if symptoms worsen or persist or if there are any questions or concerns that arise at home. 03/31 13:28 Order name: Basic Metabolic Panel; Complete Time: 14:21 8 03/31 13:28 Order name: CBC with Diff; Complete Time: 14:20 8 03/31 13:28 Order name: Creatinine for Radiology; Complete Time: 14:20 03/31 13:28 Order name: Hepatic Function; Complete Time: 14:21 03/31 13:28 Order name: Lipase; Complete Time: 14:21 8 03/31 13:46 Order name: Urine Dipstick--Ancillary (enter results); Complete Time: 14:20 eb 03/31 13:46 Order name: Urine --Ancillary (enter results); Complete Time: 14:20 eb 03/31 13:47 Order name: CT Stone Protocol; Complete Time: 14:35 8 03/31 14:37 Order name: Urine Microscopic Only; Complete Time: 14:58 03/31 14:58 Order name: Urine Culture [facility] 03/31 13:28 Order name: IV Saline Lock; Complete Time: 13:59 03/31 13:28 Order name: Labs collected and sent; Complete Time: 13:59 03/31 13:28 Order name: Urine Test (obtain specimen); Complete Time: 13:47 8 03/31 13:28 Order name: Urine Dipstick-Ancillary (obtain specimen); Complete Time: 13:47 Administered Medications: 13:59 Drug: TORadol - Ketorolac 15 mg Route: IVP; Site: right antecubital; hb 15:21 Follow up: Response: No adverse reaction ph 13:59 Drug: Zofran 4 mg Route: IVP; Site: right antecubital; hb 15:22 Follow up: Response: No adverse reaction; Nausea unchanged ph 14:40 Drug: morphine 4 mg Route: IVP; Site: right hand; ph 15:22 Follow up: Response: No adverse reaction; Pain is decreased; RASS: Drowsy (-1) ph 14:40 Drug: Phenergan 12.5 mg Route: IVP; Site: right hand; ph 15:22 Follow up: Response: No adverse reaction; Nausea is decreased ph 14:45 Drug: Rocephin - (cefTRIAXone) 2 grams Route: IVPB; Infused Over: 30 mins; Site: right ph hand; 15:22 Follow up: Response: No adverse reaction; IV Status: Completed infusion ph Disposition: 04/01 15:07 Co-signature as Attending Physician, Edgar Kumar MD. Disposition: 03/31/19 14:37 Discharged to Home. Impression: Generalized abdominal pain, Acute cystitis. - Condition is Stable. - Discharge Instructions: Abdominal Pain, Adult, Urinary Tract Infection, Adult. - Prescriptions for Ibuprofen 600 mg Oral Tablet - take 1 tablet by ORAL route every 6 hours As needed take with food; 30 tablet. Pyridium 200 mg Oral Tablet - take 1 tablet by ORAL route every 8 hours for 3 days; 9 tablet. Macrobid 100 mg Oral Capsule - take 1 capsule by ORAL route every 12 hours for 7 days; 14 capsule. promethazine 25 mg Oral Tablet - take 1 tablet by ORAL route every 6 hours As needed; 20 tablet. - Medication Reconciliation Form, Thank You Letter, Antibiotic Education, Prescription Opioid Use form. - Follow up: Private Physician; When: 5 - 6 days; Reason: Recheck today's complaints, Continuance of care, Re-evaluation by your physician. - Problem is new. - Symptoms have improved. Signatures: Dispatcher [employer] EDMS Win Silva PA PA jr8 Theresa [place] RN RN Loren Sullivan RN RN Edgar Kumar MD MD Corrections: (The following items were deleted from the chart) 03/31 14:30 14:05 Constitutional: This is a well developed, well nourished patient who is awake, jr8 alert, and in no acute distress. Head/Face: Normocephalic, atraumatic. Eyes: Pupils equal round and reactive to light, extra-ocular motions intact. Lids and lashes normal. Conjunctiva and sclera are non-icteric and not injected. Cornea within normal limits. Periorbital areas with no swelling, redness, or edema. ENT: Mucous membranes moist. Neck: Trachea midline, no thyromegaly or masses palpated, and no cervical lymphadenopathy. Supple, full range of motion without nuchal rigidity, or vertebral point tenderness. No Meningismus. Chest/axilla: Normal chest wall appearance and motion. Nontender with no deformity. No lesions are appreciated. Cardiovascular: Regular rate and rhythm with a normal S1 and S2. No gallops, murmurs, or rubs. Normal PMI, no JVD. No pulse deficits. Respiratory: Lungs have equal breath sounds bilaterally, clear to auscultation. No rales, rhonchi or wheezes noted. No increased work of breathing, no retractions or nasal flaring. Abdomen/GI: Soft, non-tender, with normal bowel sounds. No distension or tympany. No guarding or rebound. No evidence of tenderness throughout. Back: No spinal tenderness. No costovertebral tenderness. MS/ Extremity: Pulses equal, no cyanosis. Neurovascular intact. Full, normal range of motion. jr8 15:25 14:37 03/31/2019 14:37 Discharged to Home. Impression: Generalized abdominal pain; ph Acute cystitis. Condition is Stable. Forms are Medication Reconciliation Form, Thank You Letter, Antibiotic Education, Prescription Opioid Use. Follow up: Private Physician; When: 5 - 6 days; Reason: Recheck today's complaints, Continuance of care, Re-evaluation by your physician. Problem is new. Symptoms have improved. jr8
[2019-03-31 14:57] LABS: Urine Bacteria <20 /HPF (<20); Urine Culture Reflex Order REFLEXED; Urine RBC NONE SEEN /HPF (NONE SEEN)
[2019-03-31 15:37] VITALS: BP 114/86; TEMP 97.8; O2SAT 99
== END 2019-03-31 15:25 | disposition home or self-care (01) ==
LOC: ER 13:20
DX: N30.00 Acute cystitis without hematuria (principal); R10.84 Generalized abdominal pain
CPT/HCPCS: 36415; 74176; 76377; 80048; 80076; 81003; 81015; 81025; 83690; 85025; 87086; 87088; 99284; J0696; J2405; J2550; J7030

== ENCOUNTER 2019-05-02 11:40 | Emergency (ER) | payer SELFPAY ==
--- OUTSIDE RECORDS SUMMARY | 2019-05-02 11:42 | XMS REPORT ---
:1980 Author Organization [facility] Address [address] [place] [address] Care Team Providers Name Role Phone ELLEN [...] Comments WHITE BLOOD CELL COUNT (BEAKER) (test lpuf=605) 7.4 K/ L 4.0-10.0 RED BLOOD CELL COUNT (BEAKER) (test tkut=598) 4.29 M/ L 4.00-5.00 HEMOGLOBIN (BEAKER) (test shhw=088) 13.7 GM/DL 12.0-15.0 HEMATOCRIT (BEAKER) (test utid=499) 40.7 % 36.0-45.0 MEAN CORPUSCULAR VOLUME (BEAKER) (test exgt=095) 94.8 fL 82.0-99.0 MEAN CORPUSCULAR HEMOGLOBIN (BEAKER) (test zkdc=197) 31.8 pg 27.0-33.0 MEAN CORPUSCULAR HEMOGLOBIN CONC (BEAKER) (test pyri=302) 33.6 GM/DL 32.0- 36.0 RED CELL DISTRIBUTION WIDTH (BEAKER) (test vukf=030) 12.8 % 12.0-15.0 PLATELET COUNT (BEAKER) (test stpk=590) 211 K/CU MM 150-430 MEAN PLATELET VOLUME (BEAKER) (test optw=380) 8.4 fL 6.5-10.5 NUCLEATED RED BLOOD CELLS (BEAKER) (test efdn=392) 0 /100 WBC 0-0 NEUTROPHILS RELATIVE PERCENT (BEAKER) (test jjay=277) 59 % LYMPHOCYTES RELATIVE PERCENT (BEAKER) (test ifxv=523) 34 % MONOCYTES RELATIVE PERCENT (BEAKER) (test agam=948) 6 % EOSINOPHILS RELATIVE PERCENT (BEAKER) (test rofw=564) 1 % BASOPHILS RELATIVE PERCENT (BEAKER) (test nsdd=787) 1 % NEUTROPHILS ABSOLUTE COUNT (BEAKER) (test colx=492) 4.40 K/ L 1.80-8.00 LYMPHOCYTES ABSOLUTE COUNT (BEAKER) (test iamj=183) 2.50 K/ L 1.48-4.50 MONOCYTES ABSOLUTE COUNT (BEAKER) (test ifto=045) 0.40 K/ L 0.00-1.30 EOSINOPHILS ABSOLUTE COUNT (BEAKER) (test rfbn=678) 0.10 K/ L 0.00-0.50 BASOPHILS ABSOLUTE COUNT (BEAKER) (test mpto=248) 0.00 K/ L 0.00-0.20 BASIC METABOLIC [id number] 14:58:00 Test Item Value Reference Range Comments SODIUM (BEAKER) (test 141 meq/L 135-148 pbys=839) POTASSIUM (BEAKER) (test 4.1 meq/L 3.5-5.5 xrbi=540) CHLORIDE (BEAKER) (test 106 meq/L 98-106 zgpy=115) CO2 (BEAKER) (test 27 meq/L 20-31 obho=630) BLOOD UREA NITROGEN 13 mg/dL 10-26 (BEAKER) (test fdpe=003) CREATININE (BEAKER) (test 0.75 mg/dL 0.50-1.20 lgna=733) GLUCOSE RANDOM (BEAKER) 103 mg/dL 70-110 (test ubrh=192) CALCIUM (BEAKER) (test 9.3 mg/dL 8.5-10.5 ljdf=108) EGFR (BEAKER) (test 87 mL/min/1.73 sq m ESTIMATED GFR IS NOT auao=8735) ACCURATE CREATININE CLEARANCE IN PREDICTING GLOMERULAR FILTRATION RATE. ESTIMATED GFR IS NOT APPLICABLE FOR DIALYSIS PATIENTS. CBC W/PLT COUNT & AUTO [id number] 14:40:00 Test Item Value Reference Range Comments WHITE BLOOD CELL COUNT (BEAKER) (test szus=715) 7.7 K/ L 4.0-10.0 RED BLOOD CELL COUNT (BEAKER) (test kcmm=949) 4.39 M/ L 4.00-5.00 HEMOGLOBIN (BEAKER) (test xacc=299) 14.1 GM/DL 12.0-15.0 HEMATOCRIT (BEAKER) (test jvmt=309) 42.1 % 36.0-45.0 MEAN CORPUSCULAR VOLUME (BEAKER) (test yqnl=470) 95.9 fL 82.0-99.0 MEAN CORPUSCULAR HEMOGLOBIN (BEAKER) (test 32.2 pg 27.0-33.0 cvwa=718) MEAN CORPUSCULAR HEMOGLOBIN CONC (BEAKER) (test 33.6 GM/DL 32.0-36.0 xgfs=525) RED CELL DISTRIBUTION WIDTH (BEAKER) (test 13.6 % 12.0-15.0 liwy=464) PLATELET COUNT (BEAKER) (test aztk=984) 199 K/CU MM 150-430 MEAN PLATELET VOLUME (BEAKER) (test opwx=139) 8.6 fL 6.5-10.5 NUCLEATED RED BLOOD CELLS (BEAKER) (test 0 /100 WBC 0-0 rqpv=652) NEUTROPHILS RELATIVE PERCENT (BEAKER) (test 53 % bbnb=687) LYMPHOCYTES RELATIVE PERCENT (BEAKER) (test 37 % vlza=778) MONOCYTES RELATIVE PERCENT (BEAKER) (test 8 % vjkr=950) EOSINOPHILS RELATIVE PERCENT (BEAKER) (test 2 % yrbj=590) BASOPHILS RELATIVE PERCENT (BEAKER) (test 1 % ylqr=161) NEUTROPHILS ABSOLUTE COUNT (BEAKER) (test 4.00 K/ L 1.80-8.00 jwjx=911) LYMPHOCYTES ABSOLUTE COUNT (BEAKER) (test 2.80 K/ L 1.48-4.50 eaqo=973) MONOCYTES ABSOLUTE COUNT (BEAKER) (test 0.60 K/ L 0.00-1.30 toly=662) EOSINOPHILS ABSOLUTE COUNT (BEAKER) (test 0.10 K/ L 0.00-0.50 olmb=371) BASOPHILS ABSOLUTE COUNT (BEAKER) (test 0.00 K/ L 0.00-0.20 nerc=524)
[2019-05-02] MEDS ORDERED: ONDANSETRON 4 MG/2 ML VIAL ONE (12:17)
[2019-05-02] MEDS ORDERED: MEPERIDINE HCL 25 MG/0.5 ML ONE (12:17)
[2019-05-02 12:26] LABS: Urine Blood NEGATIVE (NEG); Urine Glucose NEGATIVE (NEG); Urine Protein NEGATIVE (NEG); Urine Specific Gravity <1.005 (1.005-1.030)
[2019-05-02 12:30] LABS: Urine Bacteria <20 /HPF (<20); Urine Culture Reflex Order NOT NEEDED; Urine RBC <5 /HPF (NONE SEEN)
[2019-05-02 12:37] LABS: Absolute Lymphocytes (CBC) 2.5 K/uL (0.7-4.9); Basophils % 1.1 % (0-1.3); Hematocrit 39.8 % (36.0-45.0); Lymphocytes % 38.9 % (15.3-44.8); MPV 8.8 fL (7.6-11.3); RBC Red Blood Cell Count 4.16 M/uL (3.86-4.86)
[2019-05-02 13:01] LABS: ALT/SGPT 20 U/L (12-78); AST/SGOT 12 U/L (15-37); Albumin 3.7 g/dL (3.4-5.0); Alkaline Phosphatase 57 U/L (45-117); BUN Blood Urea Nitrogen 7 mg/dL (7-18); Bicarbonate 23 mmol/L (21-32); Bilirubin Direct < 0.1 mg/dL (0-0.2); Bilirubin Total 0.3 mg/dL (0.2-1.0); Glucose Level 92 mg/dL (74-106); Lipase 103 U/L (73-393); Potassium 4.1 mmol/L (3.5-5.1); Protein, Total 6.9 g/dL (6.4-8.2); Sodium Level 140 mmol/L (136-145)
[2019-05-02] MEDS ORDERED: PROMETHAZINE 25 MG/ML VIAL ONE (13:15)
--- NOTE | 2019-05-02 13:46 | RAD REPORT ---
EXAM DESCRIPTION: CTAbdomen Pelvis W Contrast - 05/02/2019 1:22 pm CLINICAL HISTORY: Abdominal pain. mid abd and back pain COMPARISON: Abdomen Pelvis W Contrast dated 09/27/2018; Abdomen Pelvis W Contrast dated 12/31/2016 ; CT ABD PELVIS W CONTRAST dated 11/09/2014; CT ABD PELVIS W CONTRAST dated 04/10/2013; Stone Protocol dated 03/31/2019 TECHNIQUE: Biphasic CT imaging of the abdomen and pelvis was performed with 100 ml non-ionic IV cont rast. All CT scans are performed using dose optimization technique as appropriate and may include automated exposure control or mA/KV adjustment according to patient size. FINDINGS: Heavily calcified nodule in the left posterior lung base.Cholecystectomy. The liver demonstrates multiple areas of arterial phase enhancement as well as hypodense lesions, unc hanged and likely benign. No intra or extrahepatic biliary tree dilatation. The spleen, pancreas, rig ht adrenal gland and right kidney are within normal limits. 2.7 cm left adrenal mass is stable. 3 cm left renal cyst is unchanged. No bowel obstruction, free air, free fluid or abscess. Mild sigmoid diverticulosis without diverticul itis. Appendectomy. No evidence of significant lymphadenopathy. No suspicious bony findings. IMPRESSION: No acute intra-abdominal or pelvic finding.
--- NOTE | 2019-05-02 14:11 | EDPHYS ---
Physician Documentation [facility] Name: Chantal Navarro Age: 38 yrs Sex: Female : 1980 Arrival Date: 05/02/2019 Time: 11:42 Bed 6 Private MD: ED Physician Gurpreet Shelby HPI: 05/02 12:13 This 38 yrs old Female presents to ER via Ambulatory with complaints of Back rn Pain, Abdominal Pain. 12:13 The patient presents with abdominal pain that is diffuse. rn 12:13 Onset: The symptoms/episode began/occurred 5 day(s) ago. The symptoms do not radiate. rn Associated signs and symptoms: Pertinent positives: diarrhea, Pertinent negatives: nausea and vomiting, anorexia, blood in stools, chest pain, constipation, dysuria, fever, hematuria, shortness of breath, vaginal discharge, vomiting, vomiting blood. The symptoms are described as achy, intermittent. Modifying factors: The symptoms are alleviated by nothing, the symptoms are aggravated by touching the area. Severity of pain: At its worst the pain was moderate in the emergency department the pain is unchanged. The patient has experienced similar episodes in the past. Reports diffuse abd pain, shoots around to back on both sides, no hx of kidney stones, + frequent UTIs, pain for 5 days, no fever, no hematuria. + diarrhea. Has had total hysterectomy with ovaries removed, appendectomy, and cholecystectomy. Reports feels like previous kidney infection.. 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 - Social history:: Smoking status: Patient uses tobacco products, smokes one-half pack cigarettes per day. - Ebola Screening: : No symptoms or risks identified at this time. - Family history:: not pertinent. - Hospitalizations: : No recent hospitalization is reported. ROS: 12:13 Constitutional: Negative for fever, chills, and weight loss, Eyes: Negative for injury, rn pain, redness, and discharge, Neck: Negative for injury, pain, and swelling, Cardiovascular: Negative for chest pain, palpitations, and edema, Respiratory: Negative for shortness of breath, cough, wheezing, and pleuritic chest pain, Abdomen/GI: Negative for vomiting and constipation, Back: Negative for injury MS/Extremity: Negative for injury and deformity, Skin: Negative for injury, rash, and discoloration, Neuro: Negative for headache, weakness, numbness, tingling, and seizure. Exam: 12:13 Constitutional: This is a well developed, well nourished patient who is awake, alert, rn appears uncomfortable Head/Face: Normocephalic, atraumatic. ENT: MMM Cardiovascular: Regular rate and rhythm. No pulse deficits. Respiratory: No increased work of breathing, no retractions or nasal flaring. Abdomen/GI: soft, + tenderness in all 4 quadrants, no rebound, no masses Skin: Warm, dry with normal turgor. Normal color with no rashes, no lesions, and no evidence of cellulitis. MS/ Extremity: Pulses equal, no cyanosis. Neurovascular intact. Full, normal range of motion. Equal circumference. Neuro: Awake and alert, GCS 15, oriented to person, place, time, and situation. Cranial nerves II-XII grossly intact. Motor strength 5/5 in all extremities. Sensory grossly intact. Vital Signs: 11:49 BP 142 / 84; Pulse 95; Resp 16; Temp 98.3; Pulse Ox 97% ; Weight 136.08 kg; Height 5 hb ft. 2 in. (157.48 cm); Pain 8/10; 11:49 Body Mass Index 54.87 (136.08 kg, 157.48 cm) hb MDM: 11:52 Patient medically screened. rn 14:08 Differential diagnosis: diverticulitis, Endometriosis, gastritis, non-specific abd rn pain, pancreatitis, Peptic Ulcer Disease, Peritonitis, Ureterolithiasis, urinary tract infection. Data reviewed: vital signs, nurses notes, lab test result(s), radiologic studies, CT scan, and as a result, I will discharge patient. Counseling: I had a detailed discussion with the patient and/or guardian regarding: the historical points, exam findings, and any diagnostic results supporting the discharge/admit diagnosis, lab results, radiology results, the need for outpatient follow up, to return to the emergency department if symptoms worsen or persist or if there are any questions or concerns that arise at home. Response to treatment: the patient's symptoms have mildly improved after treatment, and as a result, I will discharge patient. Special discussion: Based on the patient's Hx, exam, and Dx evaluation, there is no indication for emergent surgery or inpatient Tx. It is understood by the patient/guardian that if the Sx's persist or worsen they need to return immediately for re-evaluation. I discussed with the patient/guardian in detail that at this point there is no indication for admission to the hospital. It is understood, however, that if the symptoms persist or worsen the patient needs to return immediately for re-evaluation. ED course: No acute findings in urine/blood/CT, will dc home with pcp f/u, return precautions given and understood. . 05/02 11:52 Order name: Urine Culture rn 05/02 11:52 Order name: Urine Microscopic Only; Complete Time: 13:07 05/02 12:09 Order name: Urine Dipstick--Ancillary (enter results); Complete Time: 13:07 05/02 12:12 Order name: Basic Metabolic Panel; Complete Time: 13:07 rn 05/02 12:12 Order name: CBC with Diff; Complete Time: 13: rn 05/02 12:12 Order name: Creatinine for Radiology; Complete Time: 13: rn 05/02 11:52 Order name: Urine Dipstick-Ancillary (obtain specimen); Complete Time: 12:07 rn 05/02 12:12 Order name: Hepatic Function; Complete Time: 13:07 rn 05/02 12:12 Order name: Lipase; Complete Time: 13: rn 05/02 12:12 Order name: CT Abd/Pelvis - IV Contrast Only; Complete Time: 13:59 rn 05/02 12:12 Order name: IV Saline Lock; Complete Time: 12:28 rn 05/02 12:12 Order name: Labs collected and sent; Complete Time: 12:28 rn Administered Medications: 12:30 Drug: Zofran 4 mg Route: IVP; Site: right antecubital; sg 12:30 Drug: Demerol 25 mg Route: IVP; Site: right antecubital; sg 13:25 Drug: Phenergan 12.5 mg Route: IVP; Site: right antecubital; jl7 Disposition: 05/02/19 14:09 Discharged to Home. Impression: Unspecified abdominal pain. - Condition is Stable. - Discharge Instructions: Abdominal Pain, Adult, Pain Without a Known Cause. - Prescriptions for Zofran ODT 4 mg Oral tablet,disintegrating - place 1 tablet by TRANSLINGUAL route every 8 hours As needed; 20 tablet. Ultram 50 mg Oral Tablet - take 1 tablet by ORAL route every 6 hours As needed; 20 tablet. - Medication Reconciliation Form, Thank You Letter, Antibiotic Education, Prescription Opioid Use form. - Follow up: Private Physician; When: As needed; Reason: Recheck today's complaints, Re-evaluation by your physician. - Problem is new. - Symptoms have improved. Signatures: Dispatcher [employer] EDMS Juanito Gil RN RN sg Gurpreet Shelby MD MD rn Baxter, Heather, RN RN hb Leal, Jahala RN RN jl7 Corrections: (The following items were deleted from the chart) 14:30 14:09 05/02/2019 14:09 Discharged to Home. Impression: Unspecified abdominal pain. sg Condition is Stable. Forms are Medication Reconciliation Form, Thank You Letter, Antibiotic Education, Prescription Opioid Use. Follow up: Private Physician; When: As needed; Reason: Recheck today's complaints, Re-evaluation by your physician. Problem is new. Symptoms have improved. rn
--- NOTE | 2019-05-02 14:11 | ER ---
Nurse's Notes [facility] Name: Chantal Navarro Age: 38 yrs Sex: Female : 1980 Arrival Date: 05/02/2019 Time: 11:42 Bed 6 Private MD: Diagnosis: Unspecified abdominal pain Presentation: 05/02 11:48 Presenting complaint: Right flank and lower abdominal pain x 5 days. Denies fever. hb Recently complete abx for UTI. Transition of care: patient was not received from another setting of care. Onset of symptoms was April 28, 2019. Risk Assessment: Do you want to hurt yourself or someone else? Patient reports no desire to harm self or others. Care prior to arrival: None. 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 - Social history:: Smoking status: Patient uses tobacco products, smokes one-half pack cigarettes per day. - Ebola Screening: : No symptoms or risks identified at this time. - Family history:: not pertinent. - Hospitalizations: : No recent hospitalization is reported. Assessment: 13:08 Reassessment: pt states she's still feeling nauseated, Dr. Shelby notified. iw 14:25 Reassessment: pt dc to home, pt requesting a change in prescription from Zofran to sg Phenergan, notified but in a procedure with pt, requesting pt to please wait for change, pt stated understanding but reports she would like to go home, if she has issues with the medication she will call back and speak with hospital staff. Vital Signs: 11:49 BP 142 / 84; Pulse 95; Resp 16; Temp 98.3; Pulse Ox 97% ; Weight 136.08 kg; Height 5 hb ft. 2 in. (157.48 cm); Pain 8/10; 11:49 Body Mass Index 54.87 (136.08 kg, 157.48 cm) hb ED Course: 11:42 Patient arrived in ED. mr 11:49 Triage completed. hb 11:50 Arm band placed on. hb 11:52 Gurpreet Shelby MD is Attending Physician. rn 12:04 Juanito Gil, RN is Primary Nurse. sg 12:11 Urine collected: clean catch specimen, clear, bright colored. jb1 12:28 Initial lab(s) drawn, by me, sent to lab. Inserted saline lock: 22 gauge in right jb1 antecubital area, using aseptic technique. Blood collected. 13:22 CT Abd/Pelvis - IV Contrast Only In Process Unspecified. EDMS Administered Medications: 12:30 Drug: Zofran 4 mg Route: IVP; Site: right antecubital; sg 12:30 Drug: Demerol 25 mg Route: IVP; Site: right antecubital; sg 13:25 Drug: Phenergan 12.5 mg Route: IVP; Site: right antecubital; jl7 Outcome: 14:09 Discharge ordered by MD. rn 14:25 Discharged to home ambulatory, with family. sg 14:25 Condition: good 14:25 Discharge instructions given to patient, Instructed on discharge instructions, follow up and referral plans. medication usage, safety practices, Demonstrated understanding of instructions, follow-up care, medications, Prescriptions given X 2. 14:30 Patient left the ED. sg Signatures: Dispatcher [employer] EDMS Delio Olivarez jb Juanito Gil, RN Amber Piedra mr ScottNao RN CARLOS Gurpreet Shelby MD MD rn Baxter, Heather, RN RN hb Leal, Jahala, RN RN jl7
[2019-05-02 14:36] VITALS: BP 142/84; TEMP 98.3; O2SAT 97
== END 2019-05-02 14:30 | disposition home or self-care (01) ==
LOC: ER 11:40
DX: R10.9 Unspecified abdominal pain (principal); F17.210 Nicotine dependence, cigarettes, uncomplicated
CPT/HCPCS: 36415; 74177; 80048; 80076; 81003; 81015; 83690; 85025; 87086; 87088; 96374; 96375; 99284; J2175; J2405; J2550; Q9967

== ENCOUNTER 2020-11-04 17:11 | Emergency (ER) | payer SELFPAY ==
--- OUTSIDE RECORDS SUMMARY | 2020-11-04 17:14 | XMS REPORT | Continuity of Care Document ---
:1980 Author Organization [facility] t Address [address] [place] [address] Care Team Providers Name Role Phone Celeste Nunez Primary Care Physician Only, Test Attending Clinician Unavailable Doctor Unassigned, Name Attending Clinician Unavailable Sandra OCAMPO Attending Clinician CELESTE AVILES Attending Clinician Unavailable CELESTE AVILES Admitting Clinician Unavailable Problems Condition Condition Condition Status Onset Resolution Last Treating Co mments Source Name Details Category Date Date Treatment Clinician Date S/P S/P Disease Active [facility] Cervical Cervical Disease [facility] [place] [facility] - disc disc 00:00: Medical 00 [place] Neck pain Neck pain Disease Active [facility] 01[facility]: Medical 00 [place] Cervical Cervical Disease [facility] - thy thy 00:00: Medical 00 [place] Allergies, Adverse Reactions, Alerts This patient has no known allergies or adverse reactions. Family History Family Member Diagnosis Comments Start Date Stop Date Source Family member Unremarkable [facility] Social History Social Habit Start Date Stop Date Quantity Comments Source Sex Assigned At [facility] Tobacco use and 2017-02-02 2017-02-[address] [facility] Claud[facility] kes - exposure 00[facility]00:00 [facility]00 [facility] Alcohol intake 2017-02-02 2017-02-02 Current drinker MARYAM Aaron - 00:00:00 00:00:00 of alcohol [facility] (finding[facility] Smoking Status Start Date Stop Date Source Never smoker [facility] Medications Ordered Filled Start Stop Current Ordering Indication Dosage Frequency Signature Comments Components Source Medication Medication Date Date Medication? Clinician (SIG) Name Name desvenlafax Yes 100mg QD Take [address] ine 8-22 mg by [facility] - succinate 20:12: mouth Medical (PRISTIQ) 22 daily . Center 50 MG 24 hr tablet morphine Yes 15mg Q.5D Take [address] [facility] (MS CONTIN) 8-22 by mouth 2 [place] kes - 15 MG 12 hr 20:12: (two) Medic al tablet 22 times Center daily. naloxegol Yes 25mg QD Take [address] 12.5 mg 8-22 by mouth [facility] - Oral Tab 20:12: daily. Medical tablet 22 Center morphine-na Yes Q24H Take by [facility] ltrexone 8-22 mouth [facility] - (EMBEDA) 20:12: daily. Medical 30-1.2 mg 22 Center CEPO pregabalin Yes 150mg Q.5D Take [address] (LYRICA) 8-22 mg by [facility] - 150 MG 20:12: mouth 2 Medical capsule 22 (two) Center times daily. celecoxib Yes 200mg Take [address] [facility] (CELEBREX) 8-22 mg by [facility] - 200 MG 20:12: mouth Medical capsule 22 every 12 Center (twelve) hours as needed for Pain. estradiol Yes 2mg Place [address] (ESTRING) 2 8-22 vaginally Josephine es - mg (7.5 mcg 20:12: every 3 Med ical /24 hour) 22 (three) Center vaginal months ring follow package directions . melatonin 3 Yes Take by [facility] mg Tab 8-22 mouth. [facility] - tablet 20:12: Medical 22 Center oxyCODONE-a Yes 1{tbl} Take [address] cetaminophe 8-22 tablet by Josephine es - n 20:12: mouth Medical (PERCOCET) 22 every 6 Center 10-325 mg (six) per tablet hours as needed for Pain. Procedures This patient has no known procedures. Encounters Start End Encounter Admission Attending Care Care Encounter Source Date/Time Date/Time Type Type Clinicians Facility Department ID 2020-11-01 2020-11-01 Laboratory Only, [facility] [id number] 13:43:54 13:58:54 Only Test [place] [id number] [place] [id number] [place] [id number] 2020-11-01 2020-11-01 Orders Doctor CELESTE [id number] 00:00:00 00:00:00 Only Unassigned, [place] [id number] [place] [facility] [id number] 2020-10-15 2020-10-15 Office [place] [facility] [id number] 13:59:10 15:16:37 Visit Luis SUBRAMANIAN [id number] [place] [id number] [place] [id number] [place] [id number] [facility] Results Test Description Test Time Test Comments Results Result Comments Source CBC W/PLT COUNT & AUTO DIFFERENTIAL 2017-02-01 09:41:00 Test Item Value Reference Range Interpretation Comme nts WHITE BLOOD CELL COUNT (BEAKER) (test code = 775) 7.4 K/ L 4.0- 10.0 RED BLOOD CELL COUNT (BEAKER) (test code = 761) 4.29 M/ L 4.00-5 .00 HEMOGLOBIN (BEAKER) (test code = 410) 13.7 GM/DL 12.0-15.0 HEMATOCRIT (BEAKER) (test code = 411) 40.7 % 36.0-45.0 MEAN CORPUSCULAR VOLUME (BEAKER) (test code = 753) 94.8 fL 82. 0-99.0 MEAN CORPUSCULAR HEMOGLOBIN (BEAKER) (test code = 751) 31.8 pg 27.0-33.0 MEAN CORPUSCULAR HEMOGLOBIN CONC (BEAKER) (test code = 752) 33.6 GM/DL 32.0-36.0 RED CELL DISTRIBUTION WIDTH (BEAKER) (test code = 412) 12.8 % 12.0-15.0 PLATELET COUNT (BEAKER) (test code = 756) 211 K/CU MM 150-430 MEAN PLATELET VOLUME (BEAKER) (test code = 754) 8.4 fL 6.5-10 .5 NUCLEATED RED BLOOD CELLS (BEAKER) (test code = 413) 0 /100 WBC 0 -0 NEUTROPHILS RELATIVE PERCENT (BEAKER) (test code = 429) 59 % LYMPHOCYTES RELATIVE PERCENT (BEAKER) (test code = 430) 34 % MONOCYTES RELATIVE PERCENT (BEAKER) (test code = 431) 6 % EOSINOPHILS RELATIVE PERCENT (BEAKER) (test code = 432) 1 % BASOPHILS RELATIVE PERCENT (BEAKER) (test code = 437) 1 % NEUTROPHILS ABSOLUTE COUNT (BEAKER) (test code = 670) 4.40 K/ L 1.80-8.00 LYMPHOCYTES ABSOLUTE COUNT (BEAKER) (test code = 414) 2.50 K/ L 1.48-4.50 MONOCYTES ABSOLUTE COUNT (BEAKER) (test code = 415) 0.40 K/ L 0. 00-1.30 EOSINOPHILS ABSOLUTE COUNT (BEAKER) (test code = 416) 0.10 K/ L 0.00-0.50 BASOPHILS ABSOLUTE COUNT (BEAKER) (test code = 417) 0.00 K/ L 0. 00-0.20 BASIC METABOLIC [id number] 14:58:00 Test Item Value Reference Range Interpretation Comments SODIUM (BEAKER) 141 meq/L 135-148 (test code = 381) POTASSIUM (BEAKER) 4.1 meq/L 3.5-5.5 (test code = 379) CHLORIDE (BEAKER) 106 meq/L 98-106 (test code = 382) CO2 (BEAKER) (test 27 meq/L 20-31 code = 355) BLOOD UREA NITROGEN 13 mg/dL 10-26 (BEAKER) (test code = 354) CREATININE (BEAKER) 0.75 mg/dL 0.50-1.20 (test code = 358) GLUCOSE RANDOM 103 mg/dL 70-110 (BEAKER) (test code = 652) CALCIUM (BEAKER) 9.3 mg/dL 8.5-10.5 (test code = 697) EGFR (BEAKER) (test 87 mL/min/1.73 ESTIMA TARIK GFR IS code = 1092) sq m NOT ACCURATE CREATININE CLEARANCE IN PREDICTING GLOMERULAR FILTRATION RATE . ESTIMATED GFR I S NOT APPLICABLE FOR DIALYSIS PATIEN TS. CBC W/PLT COUNT & AUTO [id number] 14:40:00 Test Item Value Reference Range Interpretation Comments WHITE BLOOD CELL COUNT (BEAKER) 7.7 K/ L 4.0-10.0 (test code = 775) RED BLOOD CELL COUNT (BEAKER) 4.39 M/ L 4.00-5.00 (test code = 761) HEMOGLOBIN (BEAKER) (test code = 14.1 GM/DL 12.0-15.0 410) HEMATOCRIT (BEAKER) (test code = 42.1 % 36.0-45.0 411) MEAN CORPUSCULAR VOLUME (BEAKER) 95.9 fL 82.0-99.0 (test code = 753) MEAN CORPUSCULAR HEMOGLOBIN 32.2 pg 27.0-33.0 (BEAKER) (test code = 751) MEAN CORPUSCULAR HEMOGLOBIN CONC 33.6 GM/DL 32.0-36.0 (BEAKER) (test code = 752) RED CELL DISTRIBUTION WIDTH 13.6 % 12.0-15.0 (BEAKER) (test code = 412) PLATELET COUNT (BEAKER) (test 199 K/CU MM 150-430 code = 756) MEAN PLATELET VOLUME (BEAKER) 8.6 fL 6.5-10.5 (test code = 754) NUCLEATED RED BLOOD CELLS 0 /100 WBC 0-0 (BEAKER) (test code = 413) NEUTROPHILS RELATIVE PERCENT 53 % (BEAKER) (test code = 429) LYMPHOCYTES RELATIVE PERCENT 37 % (BEAKER) (test code = 430) MONOCYTES RELATIVE PERCENT 8 % (BEAKER) (test code = 431) EOSINOPHILS RELATIVE PERCENT 2 % (BEAKER) (test code = 432) BASOPHILS RELATIVE PERCENT 1 % (BEAKER) (test code = 437) NEUTROPHILS ABSOLUTE COUNT 4.00 K/ L 1.80-8.00 (BEAKER) (test code = 670) LYMPHOCYTES ABSOLUTE COUNT 2.80 K/ L 1.48-4.50 (BEAKER) (test code = 414) MONOCYTES ABSOLUTE COUNT (BEAKER) 0.60 K/ L 0.00-1.30 (test code = 415) EOSINOPHILS ABSOLUTE COUNT 0.10 K/ L 0.00-0.50 (BEAKER) (test code = 416) BASOPHILS ABSOLUTE COUNT (BEAKER) 0.00 K/ L 0.00-0.20 (test code = 417)
[2020-11-04] MEDS ORDERED: dexAMETHasone 10 MG/ML VIAL ONE (18:59)
[2020-11-04] MEDS ORDERED: NA CHLORIDE 0.9% 1,000 ML ONE (18:59)
[2020-11-04 19:25] LABS: SARS-COV-2 RT PCR NEGATIVE (NEGATIVE)
--- NOTE | 2020-11-04 19:34 | ER ---
Nurse's Notes [facility] Name: Chantal Navarro Age: 40 yrs Sex: Female : 1980 Arrival Date: 11/04/2020 Time: 17:14 Bed 5 Private MD: Diagnosis: Acute pharyngitis Presentation: 11/04 17:26 Chief complaint: Patient states: Cough, fever, sore throat, decreased appetite, ca1 fatigue, headache, nausea x 2 days. Coronavirus screen: Client denies travel out of the [place] in the last 14 days. cough unrelated to allergies, fatigue, fever, headache, shortness of breath, Client presents with at least one sign or symptom that may indicate coronavirus-19. Standard/surgical mask placed on the client. Provider contacted for isolation considerations. The client reports previous COVID testing was negative. Date of collection: November 01, 2020. Ebola Screen: Patient negative for fever greater than or equal to 101.5 degrees Fahrenheit, and additional compatible Ebola Virus Disease symptoms Patient denies exposure to infectious person. Patient denies travel to an Ebola-affected area in the 21 days before illness onset. No symptoms or risks identified at this time. Initial Sepsis Screen: Does the patient meet any 2 criteria? No. Patient's initial sepsis screen is negative. Does the patient have a suspected source of infection? No. Patient's initial sepsis screen is negative. Risk Assessment: Do you want to hurt yourself or someone else? Patient reports no desire to harm self or others. Onset of symptoms was November 04, 2020. 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 Flu vaccine is not up to date. - Social history:: Smoking status: Patient denies any tobacco usage or history of. Screenin:16 Abuse screen: Denies threats or abuse. Denies injuries from another. Nutritional kg screening: No deficits noted. Tuberculosis screening: No symptoms or risk factors identified. Fall Risk None identified. No fall in past 12 months (0 pts). No secondary diagnosis (0 pts). IV access (20 points). Ambulatory Aid- None/Bed Rest/Nurse Assist (0 pts). Gait- Normal/Bed Rest/Wheelchair (0 pts) Mental Status- Oriented to own ability (0 pts). Total Morgan Fall Scale indicates No Risk (0-24 pts). Assessment: 18:14 General: Appears in no apparent distress. Behavior is calm, cooperative, appropriate kg for age, quiet. Pain: Complains of pain in neck Pain radiates to chest Pain currently is 7 out of 10 on a pain scale. at worst was 8 out of 10 on a pain scale. level that patient reports is acceptable is 5 out of 10 on a pain scale. Quality of pain is described as burning, aching, soreness, tight Pain began 2-3 days ago. Neuro: No deficits noted. Level of Consciousness is awake, alert, obeys commands, Oriented to person, place, time, situation. Cardiovascular: No deficits noted. Cardiovascular: No deficits noted. Heart tones S1 S2 Capillary refill < 3 seconds. Respiratory: No deficits noted. Airway is patent. Respiratory: Respiratory effort is even, unlabored, relaxed, Breath sounds are clear bilaterally. GI: No deficits noted. : No deficits noted. EENT: Throat has patchy exudate has enlarged tonsils. Derm: No deficits noted. Musculoskeletal: No deficits noted. 18:53 Reassessment: Patient appears in no apparent distress at this time. No changes from jd3 previously documented assessment. Patient and/or family updated on plan of care and expected duration. Pain level reassessed. Patient is alert, oriented x 3, equal unlabored respirations, skin warm/dry/pink. 19:36 Reassessment: Patient appears in no apparent distress at this time. Patient is alert, rr5 oriented x 3, equal unlabored respirations, skin warm/dry/pink. review done reassess by ED provider. discharge instruction given and explained without complaints made. Vital Signs: 17:26 BP 109 / 78; Pulse 118; Resp 20; Temp 97.7(TE); Pulse Ox 98% on R/A; Weight 97.52 kg ca1 (R); Height 5 ft. 2 in. (157.48 cm) (R); Pain 8/10; 18:53 BP 99 / 72; Pulse 85; Resp 17 S; Pulse Ox 97% on R/A; jd3 19:36 BP 110 / 70; Pulse 80; Resp 16; Pulse Ox 99% ; rr5 19:57 BP 118 / 76; Pulse 75; Resp 19; Pulse Ox 99% ; rr5 17:26 Body Mass Index 39.32 (97.52 kg, 157.48 cm) ca1 ED Course: 17:14 Patient arrived in ED. as 17:28 Triage completed. ca1 17:29 Arm band placed on right wrist. ca1 17:33 Justin Olson, RN is Primary Nurse. jd3 17:33 Strep Sent. ca1 17:35 Tony Flores NP is PHCP. pm1 17:35 Mao Rodriguez MD is Attending Physician. pm1 18:05 Strep Sent. ca1 18:13 Flu Sent. kg 18:16 Patient has correct armband on for positive identification. Bed in low position. Call kg light in reach. Side rails up X2. 18:51 Inserted saline lock: 20 gauge in right wrist, using aseptic technique. jd3 19:37 No provider procedures requiring assistance completed. rr5 19:41 Primary Nurse role handed off by Justin Olson RN mw2 19:46 John Salazar RN is Primary Nurse. rr5 19:57 IV discontinued, intact, bleeding controlled, No redness/swelling at site. Pressure rr5 dressing applied. Administered Medications: 18:52 Drug: NS 0.9% 1000 ml Route: IV; Rate: 1000 ml; Site: right wrist; jd3 19:58 Follow up: Response: No adverse reaction; IV Status: Completed infusion; IV Intake: rr5 1000ml 18:52 Drug: Decadron - Dexamethasone 10 mg Route: IVP; Site: right wrist; jd3 19:58 Follow up: Response: No adverse reaction rr5 19:40 Drug: penicillin G Benzathine 1.2 million units Route: IM; Site: right gluteus; rr5 19:58 Follow up: Response: No adverse reaction rr5 Intake: 19:58 IV: 1000ml; Total: 1000ml. rr5 Outcome: 19:34 Discharge ordered by . pm1 19:57 Discharged to home ambulatory. rr5 19:57 Condition: stable 19:57 Discharge instructions given to patient, Instructed on discharge instructions, follow up and referral plans. Demonstrated understanding of instructions, follow-up care. 19:59 Patient left the ED. rr5 Signatures: Shannon Stewart Patrick, DRAFTER ENGINEERING DRAFTER ENGINEERING pm1 Justin Olson RN RN jd3 Mayte Luo mw2 John Salazar RN RN rr5 Jennifer Leon RN RN ca1 Phyllis Webster kg
--- NOTE | 2020-11-04 19:35 | EDPHYS ---
Physician Documentation [facility] [place], [place] Name: Chantal Navarro Age: 40 yrs Sex: Female : 1980 Arrival Date: 11/04/2020 Time: 17:14 Bed 5 Private MD: [place] Physician Mao Rodriguez HPI: 11/04 18:09 This 40 yrs old Female presents to ER via Ambulatory with complaints of pm1 Fever, Weakness, Sore Throat, Decreased Appetite. 18:09 The patient presents with sore throat. The patient describes throat pain as constant, pm1 raw, scratchy. Onset: The symptoms/episode began/occurred 2 day(s) ago. Severity of symptoms: in the emergency department the symptoms are actually worse. Modifying factors: The symptoms are alleviated by nothing, the symptoms are aggravated by swallowing, Denies contact with similarly ill indivduals. Associated signs and symptoms: Pertinent positives: cough, fever, Pertinent negatives earache, nausea, vomiting. The patient has not experienced similar symptoms in the past. The patient has been recently seen by a physician: for apparently unrelated complaints, preoperative labs on Wednesday for back procedure she is having on Wednesday. 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 Flu vaccine is not up to date. - Social history:: Smoking status: Patient denies any tobacco usage or history of. ROS: 18:09 Neck: Negative for injury, pain, and swelling, Cardiovascular: Negative for chest pain, pm1 palpitations, and edema. 18:09 Abdomen/GI: Negative for abdominal pain, nausea, vomiting, diarrhea, and constipation, Back: Negative for injury and pain, MS/Extremity: Negative for injury and deformity, Skin: Negative for injury, rash, and discoloration. 18:09 Constitutional: Positive for body aches, fever, poor PO intake. 18:09 ENT: Positive for sore throat, Negative for drainage from ear(s), ear pain. 18:09 Respiratory: Positive for cough, Negative for shortness of breath, sputum production, wheezing. 18:09 Neuro: Positive for weakness, generalized. Exam: 18:09 Constitutional: This is a well developed, well nourished patient who is awake, alert, pm1 and in no acute distress. Head/Face: Normocephalic, atraumatic. Eyes: Pupils equal round and reactive to light, extra-ocular motions intact. Lids and lashes normal. Conjunctiva and sclera are non-icteric and not injected. Cornea within normal limits. Periorbital areas with no swelling, redness, or edema. 18:09 Neck: Trachea midline, no thyromegaly or masses palpated, and no cervical lymphadenopathy. Supple, full range of motion without nuchal rigidity, or vertebral point tenderness. No Meningismus. 18:09 Back: No spinal tenderness. No costovertebral tenderness. Full range of motion. Skin: Warm, dry with normal turgor. Normal color with no rashes, no lesions, and no evidence of cellulitis. MS/ Extremity: Pulses equal, no cyanosis. Neurovascular intact. Full, normal range of motion. 18:09 ENT: Exam is negative for acute changes, External ear(s): are unremarkable, Ear canal(s): are normal, TM's: are normal, Mouth: is normal, Posterior pharynx: Tonsils: bilaterally enlarged, with erythema, no exudate, no ulcerations. 18:09 Cardiovascular: Exam negative for acute changes, Rate: tachycardic, Rhythm: regular, Pulses: no pulse deficits are appreciated. 18:09 Respiratory: Exam negative for acute changes, respiratory distress, shortness of breath. 18:09 Abdomen/GI: Exam negative for acute changes, Inspection: abdomen appears normal, Palpation: abdomen is soft and non-tender, in all quadrants. 18:09 Neuro: Exam negative for acute changes, Orientation: is normal, Mentation: is normal, Motor: is normal, Gait: is steady, at a normal pace, without difficulty. Vital Signs: 17:26 BP 109 / 78; Pulse 118; Resp 20; Temp 97.7(TE); Pulse Ox 98% on R/A; Weight 97.52 kg ca1 (R); Height 5 ft. 2 in. (157.48 cm) (R); Pain 8/10; 18:53 BP 99 / 72; Pulse 85; Resp 17 S; Pulse Ox 97% on R/A; jd3 19:36 BP 110 / 70; Pulse 80; Resp 16; Pulse Ox 99% ; rr5 19:57 BP 118 / 76; Pulse 75; Resp 19; Pulse Ox 99% ; rr5 17:26 Body Mass Index 39.32 (97.52 kg, 157.48 cm) ca1 MDM: 17:37 Patient medically screened. [facility] 19:33 Data reviewed: vital signs. Data interpreted: Pulse oximetry: on room air is 97 %. pm1 Interpretation: normal. Counseling: I had a detailed discussion with the patient and/or guardian regarding: the historical points, exam findings, and any diagnostic results supporting the discharge/admit diagnosis, lab results, radiology results, the need for outpatient follow up, to return to the emergency department if symptoms worsen or persist or if there are any questions or concerns that arise at home. 11/04 17:31 Order name: Strep ca1 11/04 17:59 Order name: Flu pm1 11/04 19:25 Order name: COVID-19/FLU A+B; Complete Time: 19:32 EDMS 11/04 17:59 Order name: IV Saline Lock; Complete Time: 18:53 pm1 Administered Medications: 18:52 Drug: NS 0.9% 1000 ml Route: IV; Rate: 1000 ml; Site: right wrist; jd3 19:58 Follow up: Response: No adverse reaction; IV Status: Completed infusion; IV Intake: rr5 1000ml 18:52 Drug: Decadron - Dexamethasone 10 mg Route: IVP; Site: right wrist; jd3 19:58 Follow up: Response: No adverse reaction rr5 19:40 Drug: penicillin G Benzathine 1.2 million units Route: IM; Site: right gluteus; rr5 19:58 Follow up: Response: No adverse reaction rr5 Disposition: 11/05 10:02 Co-signature as Attending Physician, Mao Rodriguez MD I agree with the assessment and [facility] plan of care. Disposition: 11/04/20 19:34 Discharged to Home. Impression: Acute pharyngitis. - Condition is Stable. - Discharge Instructions: Pharyngitis. - Medication Reconciliation Form, Thank You Letter, Antibiotic Education, Prescription Opioid Use form. - Follow up: Emergency Department; When: As needed; Reason: Worsening of condition. Follow up: Private Physician; When: 2 - 3 days; Reason: Recheck today's complaints, Continuance of care, Re-evaluation by your physician. - Problem is new. - Symptoms have improved. Signatures: Dispatcher [employer] EDAK Mao Rodriguez MD MD cha Marinas, Patrick, INSTRUMENT AND ELECTRICAL TECHNICIAN INSTRUMENT AND ELECTRICAL TECHNICIAN pm1 Justin Olson, RN RN jd3 John Salazar RN RN rr5 Jennifer Leon RN RN ca1 Corrections: (The following items were deleted from the chart) 11/04 18:39 17:59 CORONAVIRUS+MR.LAB.BRZ ordered. [facility] 18:40 17:59 Influenza Screen (A ordered. [facility] 19:59 19:34 11/04/2020 19:34 Discharged to Home. Impression: Acute pharyngitis. Condition is rr5 Stable. Forms are Medication Reconciliation Form, Thank You Letter, Antibiotic Education, Prescription Opioid Use. Follow up: Emergency Department; When: As needed; Reason: Worsening of condition. Follow up: Private Physician; When: 2 - 3 days; Reason: Recheck today's complaints, Continuance of care, Re-evaluation by your physician. Problem is new. Symptoms have improved. pm1
[2020-11-04] MEDS ORDERED: PEN G BENZ LA 1.2MU/2ML SYRINGE IM ONE (20:01)
[2020-11-04 20:46] VITALS: TEMP 97.7
[2020-11-04 20:53] VITALS: O2SAT 99
[2020-11-04 20:55] VITALS: BP 118/76
== END 2020-11-04 19:59 | disposition home or self-care (01) ==
LOC: ER 17:11
DX: J02.9 Acute pharyngitis, unspecified (principal); Z20.822 Contact with and (suspected) exposure to COVID-19
CPT/HCPCS: 0240U; 87081; 96361; 96372; 96374; 99284; J0561; J1100; J7030

== ENCOUNTER 2021-06-17 19:35 | Emergency (ER) | payer SELFPAY ==
--- OUTSIDE RECORDS SUMMARY | 2021-06-17 19:45 | XMS REPORT | Continuity of Care Document ---
:1980 Author Organization [facility] t Address [address] [place] [address] Care Team Providers Name Role Phone ArvinYazmin Primary Care Physician MADELIN Attending Clinician Unavailable CHANDRAKANT Attending Clinician Unavailable Makayla PRAJAPATI Attending Clinician Unavailable Makayla PRAJAPATI Attending Clinician Unavailable Alex STANLEY Attending Clinician Madelin OCAMPO Attending Clinician Duane GONZALEZ Attending Clinician Unavailable Tito OCAMPO Attending Clinician Doctor Unassigned, Name Attending Clinician Unavailable Only, Test Attending Clinician Unavailable Jorge Alberto MURO, S Attending Clinician JORGE ALBERTO S Attending Clinician Unavailable Daniela JULIEN Attending Clinician Ariadna King MD Attending Clinician Amadeo STANLEY, Makayla Attending Clinician Makayla CHILDS Attending Clinician Unavailable ARIADNA KING Attending Clinician Unavailable Yazmin Dunaway Attending Clinician Rodney JULIEN Attending Clinician Makayla Baird APN Attending Clinician Galo Marinelli MD Attending Clinician Chandrakant OCAMPO Attending Clinician García Alonso MD Attending Clinician Joy_Shahid Attending Clinician Unavailable Makayla Prajapati MD Attending Clinician Percy GONZALEZ, L Attending Clinician Unavailable Jono Jimenez MD Attending Clinician JONO JIMENEZ Attending Clinician Unavailable Aravind STANLEY Attending Clinician ARAVIND Attending Clinician Unavailable Yazmin Austin MD Attending Clinician Yazmin AUSTIN Attending Clinician Unavailable CELESTE AVILES Attending Clinician Unavailable MADELIN Admitting Clinician Unavailable CHANDRAKANT Admitting Clinician Unavailable Makayla PRAJAPATI Admitting Clinician Unavailable Madelin OCAMPO Admitting Clinician Chandrakant OCAMPO Admitting Clinician Earl Admitting Clinician Unavailable ARAVIND Admitting Clinician Unavailable Yazmin AUSTIN Admitting Clinician Unavailable CELESTE AVILES Admitting Clinician Unavailable Payers Payer Name Policy Type Policy Number Effective Date Expiration Date Mckenzie [id number] 2020 2020 HOSP DIST 00:00:00 00:00:00 [place] [id number] 2019 WOMEN 00:00:00 MEDICAID SSI PENDING 2019 PENDING 00:00:00 Problems Condition Condition Condition Status Onset Resolution Last Treating Co mments Source Name Details Category Date Date Treatment Clinician Date Facet Facet Disease Active Overview: Univer s joint joint 5-04 Formattin ity of disease of disease of 00:00: g of this [place] lumbosacra lumbosacra 00 note Me dical l region l region might be Bran ch different from the original. Added automatic ally from request for surgery [id number] Morbid Morbid Disease Active Univers obesity obesity 01-11 [place] of with body [place] 00:[place] mass [place] mass index 00 Me dical of of Branch 40.0-49.9 40.0-49.9 Personal Personal Disease Active Overview: Un jodie history of history of 01-11 Formattin ity of colonic colonic 00:00: g of this [place] polyps polyps 00 note Medical might be Branch different from the original. Added automatic ally from request for surgery [id number] Morbid Morbid Disease Active Univers obesity obesity 7-31 ity of with body with body 00:[place] mass index mass index 00 Me dical of of Branch 40.0-49.9 40.0-49.9 Well woman Well woman Disease Active U nivers exam with exam with 2-26 ity of routine routine 00:00: [place] gynecologi gynecologi 00 Me dical temitope exam temitope exam Branch Kidney Kidney Disease Active Univers cyst, cyst, 2-19 ity of acquired acquired 00:00: [place] [facility] Kidney Kidney Disease Active Univers cyst, cyst, 2-19 ity of acquired acquired 00:00: [place] [address] Medical Branch S/P S/P Disease Active Univers cervical cervical 9-14 ity of disc disc 00:00: [place] replacemen replacemen 00 Me dical t t Branch S/P S/P Disease Active Univers cervical cervical 8-21 ity of spinal spinal 00:00: [place] fusion fusion Medical Branch Neck pain Neck pain Disease Active Uni vers 8-08 ity of 00:00: [place] [facility] Cervical Cervical Disease Active Unive rs herniated herniated 8-08 ity of disc disc 00:00: [place] [address] Medical Branch Cervical Cervical Disease Active Unive rs radiculopa radiculopa 7-19 it y of thy thy 00:00: [place] [address] Medical Branch Obesity Obesity Disease Active Univers (BMI (BMI 6-22 ity of 30-39.9) 30-39.9) 00:00: [place] [facility] Right knee Right knee Disease Active 2015-06 U nivers pain pain 0-18 ity of 00:00: [address] Allergies, Adverse Reactions, Alerts Allergy Allergy Status Severity Reaction(s) Onset Inactive Treating Comm ents Source Name Type Date Date Clinician NO KNOWN Drug Active Univers ALLERGIE Class ity of S [facility] Social History Social Habit Start Date Stop Date Quantity Comments Source History SDCO University o f Alcohol Frequency [facility] [place] [facility] edical Branch History SDCO University o f Alcohol Std Drinks [place] [facility] [place] History [facility] University o f Alcohol Binge [place] [facility] Exposure to Not sure University of SARS-CoV-2 (event) [place] [facility] [place] History of tobacco Cigarette Smoker University of use [facility] Alcohol intake 2021-01-21 2021-01-21 0 /d University of 00:00:00 00:00:00 [facility] Tobacco Comment 2020-10-31 2020-10-31 VAPS Universit y of 00:00:00 00:00:00 [facility] Tobacco use and 2017-11-11 2017-11-11 Former user Universi ty of exposure 00:00:00 00:00:00 [facility] Cigarettes smoked 2017-11-11 2017-11-11 Univers ity of current (pack per 00:00:00 00:00:00 [facility] [place] [facility] ) - Reported [place] Alcohol Comment 2015-01-17 2015-01-17 Occasional Universit y of 00:00:00 00:00:00 [facility] Sex Assigned At [birth year] Universit y of 00:00:00 00:00:00 [facility] Smoking Status Start Date Stop Date Source Current every day smoker 2017-11-11 00:00:00 Uni versity of [facility] Medications Ordered Filled Start Stop Current Ordering Indication Dosage Frequency Signature Comments Components Source Medication Medication Date Date Medication? Clinician (SIG) Name Name codeine-gua No 10mL 10 mL, Uni vers ifenesin 01-22 Oral, ity of (ROBITUSSIN 01:15: 00:36 [place]CE, 1 [place] 10-100 00 :00 dose, Tue Medi temitope mg/5 mL 01/21/21 at [place] solution 10 2014, HAILEE mL ketorolac 2020- No 60mg 60 mg, Unive rs (TORADOL) 01-22 Intramuscu ity of injection 01:15: 00:36 [place], ONCE, [place] 60 mg 00 :00 1 dose, Medical [facility] Branch 01/21/21 at 2014, HAILEE
Fa culty member approving Restricted medication : EMERGENCY ROOM, dexamethaso No 10mg 10 mg, Uni vers ne 01-22 Intramuscu ity of (DECADRON 01:15: 00:35 lar, ONCE, [place] PHOSPHATE) 00 :00 1 dose, Medica l injection [facility] 10 mg 01/21/21 at 2014, STAT albuterol Yes [id number] 2{puff} Inhale 2 Univers 90 8-10 Puffs ity of mcg/actuati 00:00: every 4 [place] as on inhaler 00 (four) Medical hours as Branch needed for Wheezing or Shortness of Breath. bromphenira 2020-0 Yes [id number] 5mL Take 5 mL Univers mine-pseudo 8-10 by mouth 4 it y of ephedrine-D 00:00: (four) [place] M (BROMFED 00 times Medical DM) 2-30-10 daily as Bran ch mg/5 mL needed for syrup Congestion /Allergies . methylPREDN 2020-0 Yes [id number] Take by Univers ISolone 4 8-10 mouth ity of mg tablets 00:00: SEE-INSTRU [place] 00 CTIONS. Medical follow Branch package directions albuterol 2020-0 Yes [id number] 2{puff} Inhale 2 Univers 90 8-10 Puffs ity of mcg/actuati 00:00: every 4 [place] as on inhaler 00 (four) Medical hours as Branch needed for Wheezing or Shortness of Breath. bromphenira 2020-0 Yes [id number] 5mL Take 5 mL Univers mine-pseudo 8-10 by mouth 4 it y of ephedrine-D 00:00: (four) [place] M (BROMFED 00 times Medical DM) 2-30-10 daily as Bran ch mg/5 mL needed for syrup Congestion /Allergies . methylPREDN 2020-0 Yes [id number] Take by Univers ISolone 4 8-10 mouth ity of mg tablets 00:00: SEE-INSTRU [place] 00 CTIONS. Medical follow Branch package directions ibuprofen 2020-0 Yes 200mg Take 200 Uni vers (ADVIL) 200 5-26 mg by ity of mg tablet 16:44: mouth [place] 01 every 6 Medical (six) Branch hours as needed. ibuprofen 1-0 Yes 200mg Take 200 Uni vers (ADVIL) 200 5-26 mg by ity of mg tablet 16:44: mouth [place] 01 every 6 Medical (six) Branch hours as needed. ibuprofen 202-0 Yes 200mg Take 200 Uni vers (ADVIL) 200 5-26 mg by ity of mg tablet 16:44: mouth [place] 01 every 6 Medical (six) Branch hours as needed. ibuprofen 2020-0 Yes 200mg Take 200 Uni vers (ADVIL) 200 5-26 mg by ity of mg tablet 16:44: mouth [place] 01 every 6 Medical (six) Branch hours as needed. ibuprofen 202-0 Yes 200mg Take 200 Uni vers (ADVIL) 200 5-26 mg by ity of mg tablet 16:44: mouth [place] 01 every 6 Medical (six) Branch hours as needed. ibuprofen 202-0 Yes 200mg Take 200 Uni vers (ADVIL) 200 5-26 mg by ity of mg tablet 16:44: mouth [place] 01 every 6 Medical (six) Branch hours as needed. HYDROcodone 2020-0 2020- No 1{tbl} 1 tablet, Univers -acetaminop 11-06- Oral, ity of hen (NORCO 16:00: 15:55 ONCE, 1 [place] as 5) 5-325 mg 00 :00 dose, Wed Med ical tablet 1 11/06/20 at [facility] tablet 1100, Routine, PACU HYDROcodone 2020-0 2020- No 1{tbl} 1 tablet, Univers -acetaminop 11-06 Oral, ity of hen (NORCO 16:00: 15:55 ONCE, 1 [place] 5) 5-325 mg 00 :00 dose, Wed Med ical tablet 1 11/06/20 at [facility] tablet 1100, Routine, PACU ibuprofen 2020-0 Yes 200mg Take 200 Uni vers (ADVIL) 200 5-26 mg by ity of mg tablet 15:14: mouth [place] 47 every 6 Medical (six) Branch hours as needed. lidocaine 0 Yes PRN, Univers PF 2% 11-06 Starting ity of (XYLOCAINE- 15:04: [facility]) 00 11/06/20 at Medical injection 1004, Branch Until Discontinu ed, Routine, Intra-op lidocaine 2020-0 2020- No PRN, Univers PF 2% 11-06 Starting ity of (XYLOCAINE- 15:04: 18:44 [facility]) 00 :01 11/06/20 at Medical injection 1004, Branch Until Wed11/06/20 at 1344, Routine, Intra-op remifentani 2020-0 2020- No Intravenou Univers L (ULTIVA) 11-06- s, ONCE ity o f injection 14:50: 15:16 INTRA [place] 00 :09 PROCEDURE, Medical Starting Branch 11/06/20 at 0950, Until Wed11/06/20 at 1016, Routine, Intra-op remifentani 2020- No Intravenou Univers L (ULTIVA) 11-06 s, ONCE ity o f injection 14:50: 15:16 INTRA [place] 00 :09 PROCEDURE, Medical Starting Branch 11/06/20 at 0950, Until Wed11/06/20 at 1016, Routine, Intra-op lidocaine Yes PRN, Univers 1% (PF) 11-06 Starting ity of (XYLOCAINE) 14:45: Wed [place] injection 00 11/06/20 at [facility] 09, Branch Until Discontinu ed, Routine, Intra-op bupivacaine Yes PRN, Univer s (preserv 11-06 Starting ity of free) 14:45: Wed (SENSORCAIN 00 11/06/20 at [facility]) 0.25 45, Branch % (2.5 Until mg/mL) Discontinu injection ed, Routine, Intra-op triamcinolo Yes PRN, Univer s ne 11-06 Starting ity of acetonide 14:45: Wed (KENALOG) 00 11/06/20 at [facility] injection 0945, Branch Until Discontinu ed, Routine, Intra-op lidocaine 2020- No PRN, Univers 1% (PF) 11-06 Starting ity of (XYLOCAINE) 14:45: 18:44 Wed [place] injection 00 :01 11/06/20 at [facility] 0945, Branch Until Wed11/06/20 at 1344, Routine, Intra-op bupivacaine 2020- No PRN, Unive rs (preserv 11-06 Starting ity of free) 14:45: 18:44 Wed [place] (SENSORCAIN 00 :01 11/06/20 at [facility]) 0.25 0945, Branch % (2.5 Until Wed mg/mL) 11/06/20 at injection 1344, Routine, Intra-op triamcinolo 2020- No PRN, Unive rs ne 11-06 Starting ity of acetonide 14:45: 18:44 Wed [place] (KENALOG) 00 :01 11/06/20 at Medi temitope injection 0945, Branch Until Wed11/06/20 at 1344, Routine, Intra-op FENTanyl PF 2020- No Epidural, Univers (SUBLIMAZE 11-06- ONCE INTRA it y of (PF)) 14:44: 15:16 PROCEDURE, [place] injection 00 :09 Starting Medica l [facility] Branch 11/06/20 at 0944, Until Wed11/06/20 at 1016, Routine, Intra-op FENTanyl PF 2020- No Epidural, Univers (SUBLIMAZE 11-06- ONCE INTRA it y of (PF)) 14:44: 15:16 PROCEDURE, [place] injection 00 :09 Starting Medica l [facility] Branch 11/06/20 at 0944, Until Wed11/06/20 at 1016, Routine, Intra-op midazolam 2020- No IV Push, Uni vers (VERSED) 11-06 ONCE INTRA ity of injection 14:39: 15:16 PROCEDURE, [place] 00 :09 Starting Medical [facility] Branch 11/06/20 at 0939, Until Wed11/06/20 at 1016, Routine, Intra-op midazolam 2020- No IV Push, Uni vers (VERSED) 11-06 ONCE INTRA ity of injection 14:39: 15:16 PROCEDURE, [place] 00 :09 Starting [facility] Branch 11/06/20 at 0939, Until Wed11/06/20 at 1016, Routine, Intra-op lactated Yes 1000mL at 20 Univer s ringers IV 5-26 mL/hr, ity of infusion 13:30: 1,000 mL, [place] 1,000 mL 00 IV Medical Infusion, Branch CONTINUOUS , Starting 11/06/20 at 0830, Until Discontinu ed, Routine, DSU Pre-op lactated 2020- No 1000mL at 42 Unive rs ringers IV 5- 05-26 mL/hr, ity of infusion 13:30: 13:32 1,000 mL, [place] 1,000 mL 00 :00 IV Medical Infusion, Branch ONCE, 1 dose, 11/06/20 at 0830, Routine, DSU Pre-op lactated 2020- No 1000mL at 42 Unive rs ringers IV 5-26 05-26 mL/hr, ity of infusion 13:30: 13:32 1,000 mL, [place] 1,000 mL 00 :00 IV Medical Infusion, Branch ONCE, 1 dose, 11/06/20 at 0830, Routine, DSU Pre-op lactated 2020- No 1000mL at 20 Unive rs ringers IV 5-26 05-26 mL/hr, ity of infusion 13:30: 18:44 1,000 mL, [place] 1,000 mL 00 :01 IV Medical Infusion, Branch CONTINUOUS , Starting Wed11/06/20 at 0830, Until Wed11/06/20 at 1344, Routine, DSU Pre-op ibuprofen Yes 200mg Take 200 Uni vers (ADVIL) 200 5-26 mg by ity of mg tablet 11:44: mouth [place] 01 every 6 Medical (six) Branch hours as needed. ibuprofen Yes 200mg Take 200 Uni vers (ADVIL) 200 5-20 mg by ity of mg tablet 19:45: mouth [place] 47 every 6 Medical (six) Branch hours as needed. ibuprofen Yes 200mg Take 200 Uni vers (ADVIL) 200 5-20 mg by ity of mg tablet 19:45: mouth [place] 47 every 6 Medical (six) Branch hours as needed. triamcinolo 2020- No [id number] 40mg U nivers ne 10-09 ity of acetonide 20:30: 19:21 [place] (KENALOG) 00 :00 Medical injection Branch 40 mg triamcinolo 2020- No [id number] 40mg 40 mg, [facility] ne 10-09 Intra-kuldip ity of acetonide 20:30: 19:21 [place] villareal (KENALOG) 00 :00 ONCE, 1 Medical injection dose, Wed Branc h 40 mg 10/09/20 at 1530, Routine triamcinolo 2020- No [id number] 40mg U nivers ne 10-09 ity of acetonide 20:30: 19:21 [place] (KENALOG) 00 :00 Medical injection Branch 40 mg triamcinolo 2020- No [id number] 40mg 40 mg, [facility] 10-09 Intra-kuldip ity of acetonide 20:30: 19:21 [place] villareal (KENALOG) 00 :00 ONCE, 1 Medical injection dose, Wed [facility] h 40 mg 10/09/20 at 1530, Routine lactated 2020-0 Yes [id number] 1000mL Un jodie ringers IV 3-16 ity of infusion 19:30: [place] 1,000 mL 00 Medical Branch lactated 2020-0 Yes [id number] 1000mL Un jodie ringers IV 3-16 ity of infusion 19:30: [place] 1,000 mL 00 Medical Branch lactated 2020-0 Yes [id number] 1000mL Un jodie ringers IV 3-16 ity of infusion 19:30: [place] 1,000 mL 00 Medical Branch lactated 2020-0 Yes [id number] 1000mL Un jodie ringers IV 3-16 ity of infusion 19:30: [place] 1,000 mL 00 Medical Branch lactated 2020-0 Yes [id number] 1000mL Un jodie ringers IV 3-16 ity of infusion 19:30: [place] 1,000 mL 00 Medical Branch lactated 2020-0 Yes [id number] 1000mL Un jodie ringers IV 3-16 ity of infusion 19:30: [place] 1,000 mL 00 Medical Branch lactated 2020-0 Yes [id number] 1000mL Un jodie ringers IV 3-16 ity of infusion 19:30: [place] 1,000 mL 00 Medical Branch lactated 2020-0 Yes [id number] 1000mL Un jodie ringers IV 3-16 ity of infusion 19:30: [place] 1,000 mL 00 Medical Branch lactated 2020-0 Yes [id number] 1000mL Un jodie ringers IV 3-16 ity of infusion 19:30: [place] 1,000 mL 00 Medical Branch lactated 2020-0 Yes [id number] 1000mL Un jodie ringers IV 3-16 ity of infusion 19:30: [place] 1,000 mL 00 Medical Branch lactated 2020-0 Yes [id number] 1000mL Un jodie ringers IV 3-16 ity of infusion 19:30: [place] 1,000 mL 00 Medical Branch lactated 2020-0 Yes [id number] 1000mL Un jodie ringers IV 3-16 ity of infusion 19:30: [place] 1,000 mL 00 Medical Branch lactated 2020-0 Yes [id number] 1000mL Un jodie ringers IV 3-16 ity of infusion 19:30: [place] 1,000 mL 00 Medical Branch lactated 2020-0 Yes [id number] 1000mL Un jodie ringers IV 3-16 ity of infusion 19:30: [place] 1,000 mL 00 Medical Branch lactated 2020-0 Yes [id number] 1000mL Un jodie ringers IV 3-16 ity of infusion 19:30: [place] 1,000 mL 00 Medical Branch lactated 2020-0 Yes [id number] 1000mL Un jodie ringers IV 3-16 ity of infusion 19:30: [place] 1,000 mL 00 Medical Branch lactated 2020-0 Yes [id number] 1000mL Un jodie ringers IV 3-16 ity of infusion 19:30: [place] 1,000 mL 00 Medical Branch NORETHINDRO 2019-06 2020- No 1mg Take 1 mg Univers NE ACETATE 2-10 12-10 by mouth. ity of ORAL 21:56: 00:00 [place] 43 :00 [facility] Branch NORETHINDRO 2019-06 2020- No 1mg Take 1 mg Univers NE ACETATE 2-10 12-10 by mouth. ity of ORAL 21:56: 00:00 [place] 43 :00 [facility] Branch citalopram 2019-06 2020- No 20mg Take 20 mg Univers 20 mg 2-10 12-10 by mouth ity of tablet 20:12: 00:00 daily. [place] 29 :00 [facility] clonazePAM 2019-06 2020- No 2mg Take 2 mg U nivers 2 mg tablet 2-10 12-10 by mouth ity of 20:12: 00:00 as needed. [place] 29 :00 [facility] Branch citalopram 2019-06 2020- No 20mg Take 20 mg Univers 20 mg 2-10 12-10 by mouth ity of tablet 20:12: 00:00 daily. [place] 29 :00 [facility] clonazePAM 2019-06 2020- No 2mg Take 2 mg U nivers 2 mg tablet 2-10 12-10 by mouth ity of 20:12: 00:00 as needed. [place] 29 :00 [facility] amitriptyli 2019- Yes [id number] 25mg Take 1 Univers ne 25 mg 2-10 tablet by ity of tablet 00:00: mouth at [place] 00 bedtime. Medical Branch SUMAtriptan 2019- Yes [id number] 25mg Take 1 Univers (IMITREX) 2-10 tablet by ity o f 25 mg 00:00: mouth [place] tablet 00 SEE-INSTRU Medical CTIONS. Branch Take 1 tab for migraine headache, may repeat in 2 hours if no improvemen t. MAX 2 daily. hydrOXYzine 2019- Yes [id number] 25mg Take 1 Univers 25 mg 2-10 tablet by ity of tablet 00:00: mouth [place] 00 every 6 Medical (six) Branch hours as needed for Anxiety. amitriptyli 2019-06 Yes [id number] 25mg Take 1 Univers ne 25 mg 2-10 tablet by ity of tablet 00:00: mouth at [place] 00 bedtime. Medical Branch SUMAtriptan 2019-06 Yes [id number] 25mg Take 1 Univers (IMITREX) 2-10 tablet by ity o f 25 mg 00:00: mouth [place] tablet 00 SEE-INSTRU Medical CTIONS. Branch Take 1 tab for migraine headache, may repeat in 2 hours if no improvemen t. MAX 2 daily. hydrOXYzine 2019- Yes [id number] 25mg Take 1 Univers 25 mg 2-10 tablet by ity of tablet 00:00: mouth [place] 00 every 6 Medical (six) Branch hours as needed for Anxiety. amitriptyli 2019-06 Yes [id number] 25mg Take 1 Univers ne 25 mg 2-10 tablet by ity of tablet 00:00: mouth at [place] 00 bedtime. Medical Branch SUMAtriptan 2019-06 Yes [id number] 25mg Take 1 Univers (IMITREX) 2-10 tablet by ity o f 25 mg 00:00: mouth [place] tablet 00 SEE-INSTRU Medical CTIONS. Branch Take 1 tab for migraine headache, may repeat in 2 hours if no improvemen t. MAX 2 daily. hydrOXYzine 2019- Yes [id number] 25mg Take 1 Univers 25 mg 2-10 tablet by ity of tablet 00:00: mouth [place] 00 every 6 Medical (six) Branch hours as needed for Anxiety. amitriptyli 2019- Yes [id number] 25mg Take 1 Univers ne 25 mg 2-10 tablet by ity of tablet 00:00: mouth at [place] 00 bedtime. Medical Branch SUMAtriptan 2019-06 Yes [id number] 25mg Take 1 Univers (IMITREX) 2-10 tablet by ity o f 25 mg 00:00: mouth [place] tablet 00 SEE-INSTRU Medical CTIONS. Branch Take 1 tab for migraine headache, may repeat in 2 hours if no improvemen t. MAX 2 daily. hydrOXYzine 2019-06 Yes [id number] 25mg Take 1 Univers 25 mg 2-10 tablet by ity of tablet 00:00: mouth [place] 00 every 6 Medical (six) Branch hours as needed for Anxiety. amitriptyli 2019-06 Yes [id number] 25mg Take 1 Univers ne 25 mg 2-10 tablet by ity of tablet 00:00: mouth at [place] 00 bedtime. Medical Branch SUMAtriptan 2019-06 Yes [id number] 25mg Take 1 Univers (IMITREX) 2-10 tablet by ity o f 25 mg 00:00: mouth [place] tablet 00 SEE-INSTRU Medical CTIONS. Branch Take 1 tab for migraine headache, may repeat in 2 hours if no improvemen t. MAX 2 daily. hydrOXYzine 2019-06 Yes [id number] 25mg Take 1 Univers 25 mg 2-10 tablet by ity of tablet 00:00: mouth [place] 00 every 6 Medical (six) Branch hours as needed for Anxiety. amitriptyli 2019-06 Yes [id number] 25mg Take 1 Univers ne 25 mg 2-10 tablet by ity of tablet 00:00: mouth at [place] 00 bedtime. Medical Branch SUMAtriptan 2019-06 Yes [id number] 25mg Take 1 Univers (IMITREX) 2-10 tablet by ity o f 25 mg 00:00: mouth [place] tablet 00 SEE-INSTRU Medical CTIONS. Branch Take 1 tab for migraine headache, may repeat in 2 hours if no improvemen t. MAX 2 daily. hydrOXYzine 2019-06 Yes [id number] 25mg Take 1 Univers 25 mg 2-10 tablet by ity of tablet 00:00: mouth [place] 00 every 6 Medical (six) Branch hours as needed for Anxiety. amitriptyli 2019-06 Yes [id number] 25mg Take 1 Univers ne 25 mg 2-10 tablet by ity of tablet 00:00: mouth at [place] 00 bedtime. Medical Branch SUMAtriptan 2019-06 Yes [id number] 25mg Take 1 Univers (IMITREX) 2-10 tablet by ity o f 25 mg 00:00: mouth [place] tablet 00 SEE-INSTRU Medical CTIONS. Branch Take 1 tab for migraine headache, may repeat in 2 hours if no improvemen t. MAX 2 daily. hydrOXYzine 2019- Yes [id number] 25mg Take 1 Univers 25 mg 2-10 tablet by ity of tablet 00:00: mouth [place] 00 every 6 Medical (six) Branch hours as needed for Anxiety. amitriptyli 2019- Yes [id number] 25mg Take 1 Univers ne 25 mg 2-10 tablet by ity of tablet 00:00: mouth at [place] 00 bedtime. Medical Branch SUMAtriptan 2019- Yes [id number] 25mg Take 1 Univers (IMITREX) 2-10 tablet by ity o f 25 mg 00:00: mouth [place] tablet 00 SEE-INSTRU Medical CTIONS. Branch Take 1 tab for migraine headache, may repeat in 2 hours if no improvemen t. MAX 2 daily. hydrOXYzine 2019- Yes [id number] 25mg Take 1 Univers 25 mg 2-10 tablet by ity of tablet 00:00: mouth [place] 00 every 6 Medical (six) Branch hours as needed for Anxiety. amitriptyli 2019-06 Yes [id number] 25mg Take 1 Univers ne 25 mg 2-10 tablet by ity of tablet 00:00: mouth at [place] 00 bedtime. Medical Branch SUMAtriptan 2019-06 Yes [id number] 25mg Take 1 Univers (IMITREX) 2-10 tablet by ity o f 25 mg 00:00: mouth [place] tablet 00 SEE-INSTRU Medical CTIONS. Branch Take 1 tab for migraine headache, may repeat in 2 hours if no improvemen t. MAX 2 daily. hydrOXYzine 2019- Yes [id number] 25mg Take 1 Univers 25 mg 2-10 tablet by ity of tablet 00:00: mouth [place] 00 every 6 Medical (six) Branch hours as needed for Anxiety. amitriptyli 2019- Yes [id number] 25mg Take 1 Univers ne 25 mg 2-10 tablet by ity of tablet 00:00: mouth at [place] 00 bedtime. Medical Branch SUMAtriptan 2019- Yes [id number] 25mg Take 1 Univers (IMITREX) 2-10 tablet by ity o f 25 mg 00:00: mouth [place] tablet 00 SEE-INSTRU Medical CTIONS. Branch Take 1 tab for migraine headache, may repeat in 2 hours if no improvemen t. MAX 2 daily. hydrOXYzine 2020- Yes [id number] 25mg Take 1 Univers 25 mg 2-10 tablet by ity of tablet 00:00: mouth [place] 00 every 6 Medical (six) Branch hours as needed for Anxiety. amitriptyli 2019- Yes [id number] 25mg Take 1 Univers ne 25 mg 2-10 tablet by ity of tablet 00:00: mouth at [place] 00 bedtime. Medical Branch SUMAtriptan 2020- Yes [id number] 25mg Take 1 Univers (IMITREX) 2-10 tablet by ity o f 25 mg 00:00: mouth [place] tablet 00 SEE-INSTRU Medical CTIONS. Branch Take 1 tab for migraine headache, may repeat in 2 hours if no improvemen t. MAX 2 daily. hydrOXYzine 2019- Yes [id number] 25mg Take 1 Univers 25 mg 2-10 tablet by ity of tablet 00:00: mouth [place] 00 every 6 Medical (six) Branch hours as needed for Anxiety. amitriptyli 2019- Yes [id number] 25mg Take 1 Univers ne 25 mg 2-10 tablet by ity of tablet 00:00: mouth at [place] 00 bedtime. Medical Branch SUMAtriptan 2019- Yes [id number] 25mg Take 1 [facility] (IMITREX) 2-10 tablet by ity o f 25 mg 00:00: mouth [place] tablet 00 SEE-INSTRU Medical CTIONS. Branch Take 1 tab for migraine headache, may repeat in 2 hours if no improvemen t. MAX 2 daily. hydrOXYzine 2019- Yes [id number] 25mg Take 1 [facility] 25 mg 2-10 tablet by ity of tablet 00:00: mouth [place] 00 every 6 Medical (six) Branch hours as needed for Anxiety. amitriptyli 2019- Yes [id number] 25mg Take 1 [facility] ne 25 mg 2-10 tablet by ity of tablet 00:00: mouth at [place] 00 bedtime. Medical [facility] SUMAtriptan 2019- Yes [id number] 25mg Take 1 [facility] (IMITREX) 2-10 tablet by ity o f 25 mg 00:00: mouth [place] tablet 00 SEE-INSTRU Medical CTIONS. Branch Take 1 tab for migraine headache, may repeat in 2 hours if no improvemen t. MAX 2 daily. hydrOXYzine 2019- Yes [id number] 25mg Take 1 [facility] 25 mg 2-10 tablet by ity of tablet 00:00: mouth [place] 00 every 6 Medical (six) Branch hours as needed for Anxiety. amitriptyli 2019- Yes [id number] 25mg Take 1 [facility] ne 25 mg 2-10 tablet by ity of tablet 00:00: mouth at [place] 00 bedtime. Medical [facility] SUMAtriptan 2019- Yes [id number] 25mg Take 1 [facility] (IMITREX) 2-10 tablet by ity o f 25 mg 00:00: mouth [place] tablet 00 SEE-INSTRU Medical CTIONS. Branch Take 1 tab for migraine headache, may repeat in 2 hours if no improvemen t. MAX 2 daily. hydrOXYzine 2019-06 Yes [id number] 25mg Take 1 [facility] 25 mg 2-10 tablet by ity of tablet 00:00: mouth [place] 00 every 6 Medical (six) Branch hours as needed for Anxiety. amitriptyli 2019-06 Yes [id number] 25mg Take 1 [facility] ne 25 mg 2-10 tablet by ity of tablet 00:00: mouth at [place] 00 bedtime. Medical Branch SUMAtriptan 2019-06 Yes [id number] 25mg Take 1 [facility] (IMITREX) 2-10 tablet by ity o f 25 mg 00:00: mouth [place] tablet 00 SEE-INSTRU Medical CTIONS. Branch Take 1 tab for migraine headache, may repeat in 2 hours if no improvemen t. MAX 2 daily. hydrOXYzine 2019- Yes [id number] 25mg Take 1 [facility] 25 mg 2-10 tablet by ity of tablet 00:00: mouth [place] 00 every 6 Medical (six) Branch hours as needed for Anxiety. amitriptyli 2019- Yes [id number] 25mg Take 1 [facility] ne 25 mg 2-10 tablet by ity of tablet 00:00: mouth at [place] 00 bedtime. Medical [facility] SUMAtriptan 2019- Yes [id number] 25mg Take 1 [facility] (IMITREX) 2-10 tablet by ity o f 25 mg 00:00: mouth [place] tablet 00 SEE-INSTRU Medical CTIONS. Branch Take 1 tab for migraine headache, may repeat in 2 hours if no improvemen t. MAX 2 daily. hydrOXYzine 2019- Yes [id number] 25mg Take 1 [facility] 25 mg 2-10 tablet by ity of tablet 00:00: mouth [place] 00 every 6 Medical (six) Branch hours as needed for Anxiety. amitriptyli 2019- Yes [id number] 25mg Take 1 [facility] ne 25 mg 2-10 tablet by ity of tablet 00:00: mouth at [place] 00 bedtime. Medical [facility] SUMAtriptan 2019- Yes [id number] 25mg Take 1 [facility] (IMITREX) 2-10 tablet by ity o f 25 mg 00:00: mouth [place] tablet 00 SEE-INSTRU Medical CTIONS. Branch Take 1 tab for migraine headache, may repeat in 2 hours if no improvemen t. MAX 2 daily. hydrOXYzine 2019- Yes [id number] 25mg Take 1 [facility] 25 mg 2-10 tablet by ity of tablet 00:00: mouth [place] 00 every 6 Medical (six) Branch hours as needed for Anxiety. amitriptyli 2019-06 Yes [id number] 25mg Take 1 [facility] ne 25 mg 2-10 tablet by ity of tablet 00:00: mouth at [place] 00 bedtime. Medical Branch SUMAtriptan 2019- Yes [id number] 25mg Take 1 [facility] (IMITREX) 2-10 tablet by ity o f 25 mg 00:00: mouth [place] tablet 00 SEE-INSTRU Medical CTIONS. Branch Take 1 tab for migraine headache, may repeat in 2 hours if no improvemen t. MAX 2 daily. hydrOXYzine 2019- Yes [id number] 25mg Take 1 [facility] 25 mg 2-10 tablet by ity of tablet 00:00: mouth [place] 00 every 6 Medical (six) Branch hours as needed for Anxiety. amitriptyli 2019- Yes [id number] 25mg Take 1 [facility] ne 25 mg 2-10 tablet by ity of tablet 00:00: mouth at [place] 00 bedtime. Medical Branch SUMAtriptan 2019- Yes [id number] 25mg Take 1 [facility] (IMITREX) 2-10 tablet by ity o f 25 mg 00:00: mouth [place] tablet 00 SEE-INSTRU Medical CTIONS. Branch Take 1 tab for migraine headache, may repeat in 2 hours if no improvemen t. MAX 2 daily. hydrOXYzine 2019- Yes [id number] 25mg Take 1 [facility] 25 mg 2-10 tablet by ity of tablet 00:00: mouth [place] 00 every 6 Medical (six) Branch hours as needed for Anxiety. amitriptyli 2019- Yes [id number] 25mg Take 1 [facility] ne 25 mg 2-10 tablet by ity of tablet 00:00: mouth at [place] 00 bedtime. Medical [facility] SUMAtriptan 2019- Yes [id number] 25mg Take 1 [facility] (IMITREX) 2-10 tablet by ity o f 25 mg 00:00: mouth [place] tablet 00 SEE-INSTRU Medical CTIONS. Branch Take 1 tab for migraine headache, may repeat in 2 hours if no improvemen t. MAX 2 daily. hydrOXYzine 2019-06 Yes [id number] 25mg Take 1 [facility] 25 mg 2-10 tablet by ity of tablet 00:00: mouth [place] 00 every 6 Medical (six) Branch hours as needed for Anxiety. amitriptyli 2019-06 Yes [id number] 25mg Take 1 [facility] ne 25 mg 2-10 tablet by ity of tablet 00:00: mouth at [place] 00 bedtime. Medical [facility] SUMAtriptan 2019- Yes [id number] 25mg Take 1 [facility] (IMITREX) 2-10 tablet by ity o f 25 mg 00:00: mouth [place] tablet 00 SEE-INSTRU Medical CTIONS. Branch Take 1 tab for migraine headache, may repeat in 2 hours if no improvemen t. MAX 2 daily. hydrOXYzine 2019- Yes [id number] 25mg Take 1 [facility] 25 mg 2-10 tablet by ity of tablet 00:00: mouth [place] 00 every 6 Medical (six) Branch hours as needed for Anxiety. amitriptyli 2019- Yes [id number] 25mg Take 1 [facility] ne 25 mg 2-10 tablet by ity of tablet 00:00: mouth at [place] 00 bedtime. Medical [facility] SUMAtriptan 2019- Yes [id number] 25mg Take 1 [facility] (IMITREX) 2-10 tablet by ity o f 25 mg 00:00: mouth [place] tablet 00 SEE-INSTRU Medical CTIONS. Branch Take 1 tab for migraine headache, may repeat in 2 hours if no improvemen t. MAX 2 daily. hydrOXYzine 2019- Yes [id number] 25mg Take 1 [facility] 25 mg 2-10 tablet by ity of tablet 00:00: mouth [place] 00 every 6 Medical (six) Branch hours as needed for Anxiety. amitriptyli 2019- Yes [id number] 25mg Take 1 [facility] ne 25 mg 2-10 tablet by ity of tablet 00:00: mouth at [place] 00 bedtime. Medical [facility] SUMAtriptan 2019- Yes [id number] 25mg Take 1 [facility] (IMITREX) 2-10 tablet by ity o f 25 mg 00:00: mouth [place] tablet 00 SEE-INSTRU Medical CTIONS. Branch Take 1 tab for migraine headache, may repeat in 2 hours if no improvemen t. MAX 2 daily. hydrOXYzine 2019- Yes [id number] 25mg Take 1 [facility] 25 mg 2-10 tablet by ity of tablet 00:00: mouth [place] 00 every 6 Medical (six) Branch hours as needed for Anxiety. amitriptyli 2019- Yes [id number] 25mg Take 1 [facility] ne 25 mg 2-10 tablet by ity of tablet 00:00: mouth at [place] 00 bedtime. Medical Branch SUMAtriptan 2019-06 Yes [id number] 25mg Take 1 [facility] (IMITREX) 2-10 tablet by ity o f 25 mg 00:00: mouth [place] tablet 00 SEE-INSTRU Medical CTIONS. Branch Take 1 tab for migraine headache, may repeat in 2 hours if no improvemen t. MAX 2 daily. hydrOXYzine 2019- Yes [id number] 25mg Take 1 [facility] 25 mg 2-10 tablet by ity of tablet 00:00: mouth [place] 00 every 6 Medical (six) Branch hours as needed for Anxiety. amitriptyli 2019-06 Yes [id number] 25mg Take 1 [facility] ne 25 mg 2-10 tablet by ity of tablet 00:00: mouth at [place] 00 bedtime. Medical Branch SUMAtriptan 2019- Yes [id number] 25mg Take 1 [facility] (IMITREX) 2-10 tablet by ity o f 25 mg 00:00: mouth [place] tablet 00 SEE-INSTRU Medical CTIONS. Branch Take 1 tab for migraine headache, may repeat in 2 hours if no improvemen t. MAX 2 daily. hydrOXYzine 2019- Yes [id number] 25mg Take 1 [facility] 25 mg 2-10 tablet by ity of tablet 00:00: mouth [place] 00 every 6 Medical (six) Branch hours as needed for Anxiety. amitriptyli 2019- Yes [id number] 25mg Take 1 [facility] ne 25 mg 2-10 tablet by ity of tablet 00:00: mouth at [place] 00 bedtime. Medical Branch SUMAtriptan 2019-06 Yes [id number] 25mg Take 1 [facility] (IMITREX) 2-10 tablet by ity o f 25 mg 00:00: mouth [place] tablet 00 SEE-INSTRU Medical CTIONS. Branch Take 1 tab for migraine headache, may repeat in 2 hours if no improvemen t. MAX 2 daily. hydrOXYzine 2019- Yes [id number] 25mg Take 1 [facility] 25 mg 2-10 tablet by ity of tablet 00:00: mouth [place] 00 every 6 Medical (six) Branch hours as needed for Anxiety. amitriptyli 2019-06 Yes [id number] 25mg Take 1 [facility] ne 25 mg 2-10 tablet by ity of tablet 00:00: mouth at [place] 00 bedtime. Medical Branch SUMAtriptan 2019-06 Yes [id number] 25mg Take 1 [facility] (IMITREX) 2-10 tablet by ity o f 25 mg 00:00: mouth [place] tablet 00 SEE-INSTRU Medical CTIONS. Branch Take 1 tab for migraine headache, may repeat in 2 hours if no improvemen t. MAX 2 daily. hydrOXYzine 2019- Yes [id number] 25mg Take 1 [facility] 25 mg 2-10 tablet by ity of tablet 00:00: mouth [place] 00 every 6 Medical (six) Branch hours as needed for Anxiety. amitriptyli 2019-06 Yes [id number] 25mg Take 1 [facility] ne 25 mg 2-10 tablet by ity of tablet 00:00: mouth at [place] 00 bedtime. Medical Branch SUMAtriptan 2019-06 Yes [id number] 25mg Take 1 [facility] (IMITREX) 2-10 tablet by ity o f 25 mg 00:00: mouth [place] tablet 00 SEE-INSTRU Medical CTIONS. Branch Take 1 tab for migraine headache, may repeat in 2 hours if no improvemen t. MAX 2 daily. hydrOXYzine 2019- Yes [id number] 25mg Take 1 [facility] 25 mg 2-10 tablet by ity of tablet 00:00: mouth [place] 00 every 6 Medical (six) Branch hours as needed for Anxiety. amitriptyli 2019-06 Yes [id number] 25mg Take 1 [facility] ne 25 mg 2-10 tablet by ity of tablet 00:00: mouth at [place] 00 bedtime. Medical Branch SUMAtriptan 2019- Yes [id number] 25mg Take 1 [facility] (IMITREX) 2-10 tablet by ity o f 25 mg 00:00: mouth [place] tablet 00 SEE-INSTRU Medical CTIONS. Branch Take 1 tab for migraine headache, may repeat in 2 hours if no improvemen t. MAX 2 daily. hydrOXYzine 2019- Yes [id number] 25mg Take 1 [facility] 25 mg 2-10 tablet by ity of tablet 00:00: mouth [place] 00 every 6 Medical (six) Branch hours as needed for Anxiety. amitriptyli 2019- Yes [id number] 25mg Take 1 [facility] ne 25 mg 2-10 tablet by ity of tablet 00:00: mouth at [place] 00 bedtime. Medical Branch SUMAtriptan 2019- Yes [id number] 25mg Take 1 [facility] (IMITREX) 2-10 tablet by ity o f 25 mg 00:00: mouth [place] tablet 00 SEE-INSTR Medical CTIONS. Branch Take 1 tab for migraine headache, may repeat in 2 hours if no improvemen t. MAX 2 daily. hydrOXYzine 2019- Yes [id number] 25mg Take 1 [facility] 25 mg 2-10 tablet by ity of tablet 00:00: mouth [place] 00 every 6 Medical (six) Branch hours as needed for Anxiety. amitriptyli 2019- Yes [id number] 25mg Take 1 [facility] ne 25 mg 2-10 tablet by ity of tablet 00:00: mouth at [place] 00 bedtime. Medical Branch SUMAtriptan 2019- Yes [id number] 25mg Take 1 [facility] (IMITREX) 2-10 tablet by ity o f 25 mg 00:00: mouth [place] tablet 00 SEE-INSTRU Medical CTIONS. Branch Take 1 tab for migraine headache, may repeat in 2 hours if no improvemen t. MAX 2 daily. hydrOXYzine 2019- Yes [id number] 25mg Take 1 [facility] 25 mg 2-10 tablet by ity of tablet 00:00: mouth [place] 00 every 6 Medical (six) Branch hours as needed for Anxiety. amitriptyli 2019- Yes [id number] 25mg Take 1 [facility] ne 25 mg 2-10 tablet by ity of tablet 00:00: mouth at [place] 00 bedtime. Medical Branch SUMAtriptan 2019- Yes [id number] 25mg Take 1 [facility] (IMITREX) 2-10 tablet by ity o f 25 mg 00:00: mouth [place] tablet 00 SEE-INSTRU Medical CTIONS. Branch Take 1 tab for migraine headache, may repeat in 2 hours if no improvemen t. MAX 2 daily. hydrOXYzine 2019-06 Yes [id number] 25mg Take 1 [facility] 25 mg 2-10 tablet by ity of tablet 00:00: mouth [place] 00 every 6 Medical (six) Branch hours as needed for Anxiety. ondansetron 2019-06- No 4mg 4 mg, Slow [facility] (ZOFRAN 06-20 IV Push, ity of (PF)) 21:00: 21:00 ONCE, 1 [place] injection 4 00 :00 dose, Sat Med ical mg 04/20/20 at Branch 1500, HAILEE morpHINE 2019-06- No 4mg 4 mg, Slow [facility] injection 4 06-20 IV Push, ity of mg 20:45: 19:45 ONCE, 1 [place] 00 :00 dose, Sat Medical 04/20/20 at Branch 1445, STAT ketorolac 2019-06- No 30mg 30 mg, Unive rs (TORADOL) 06-20 Slow IV ity of injection 19:00: 18:07 Push, [place] 30 mg 00 :00 ONCE, 1 Medical dose, Sat [place] 04/20/20 at 1300, Routine
council member approving Restricted medication : MARBIN WILSON NaCl 0.9% 2019-06- No 1000mL at 999 [facility] vers (NS) bolus 06-20 mL/hr, ity of infusion 18:00: 19:55 1,000 mL, [place] 1,000 mL 00 :00 IV Medical Infusion, [place] ONCE, 1 dose, 04/20/20 at 1200, HAILEE HYDROcodone 2019-06- No 1{tbl} 1 tablet, [facility] -acetaminop 0-31 10-31 Oral, ity of hen (NORCO 07:30: 06:28 ONCE, 1 [place] 5) 5-325 mg 00 :00 dose, Sat Med ical tablet 1 04/13/20 [place] tablet at 0230, HAILEE traMADoL 50 2019-06 Yes [id number] 50mg Take 1 [facility] ers mg tablet 0-31 tablet by ity o f 00:00: mouth [place] 00 every 6 Medical (six) Branch hours as needed for Pain (scale 7-10). Indication s: acute pain traMADoL 50 2019-06 Yes [id number] 50mg Take 1 [facility] ers mg tablet 0-31 tablet by ity o f 00:00: mouth [place] 00 every 6 Medical (six) Branch hours as needed for Pain (scale 7-10). Indication s: acute pain traMADoL 50 2019-06 Yes [id number] 50mg Take 1 [facility] ers mg tablet 0-31 tablet by ity o f 00:00: mouth [place] 00 every 6 Medical (six) Branch hours as needed for Pain (scale 7-10). Indication s: acute pain traMADoL 50 2019-06 Yes [id number] 50mg Take 1 [facility] ers mg tablet 0-31 tablet by ity o f 00:00: mouth [place] 00 every 6 Medical (six) Branch hours as needed for Pain (scale 7-10). Indication s: acute pain traMADoL 50 2019-06 Yes [id number] 50mg Take 1 [facility] ers mg tablet 0-31 tablet by ity o f 00:00: mouth [place] 00 every 6 Medical (six) Branch hours as needed for Pain (scale 7-10). Indication s: acute pain traMADoL 50 2019-06 Yes [id number] 50mg Take 1 [facility] ers mg tablet 0-31 tablet by ity o f 00:00: mouth [place] 00 every 6 Medical (six) Branch hours as needed for Pain (scale 7-10). Indication s: acute pain traMADoL 50 2019-06 Yes [id number] 50mg Take 1 [facility] ers mg tablet 0-31 tablet by ity o f 00:00: mouth [place] 00 every 6 Medical (six) Branch hours as needed for Pain (scale 7-10). Indication s: acute pain traMADoL 50 2019-06- No 4647 50mg Take 1 [facility] vers mg tablet 0-31 12-10 tablet by ity of 00:00: 00:00 mouth [place] 00 :00 every 6 Medical (six) Branch hours as needed for Pain (scale 7-10). Indication s: acute pain traMADoL 50 2019-06- No 4647 50mg Take 1 [facility] vers mg tablet 0-31 12-10 tablet by ity of 00:00: 00:00 mouth [place] 00 :00 every 6 Medical (six) Branch hours as needed for Pain (scale 7-10). Indication s: acute pain citalopram 2019-06 Yes 20mg Take 20 mg U nivers 20 mg 0-06 by mouth ity of tablet 15:04: daily. [place] 07 Medical Branch clonazePAM 2020-1 Yes 2mg Take 2 mg [facility] 2 mg tablet 0-06 by mouth ity of 15:04: as needed. [address] NORETHINDRO 2020- Yes 1mg Take 1 mg U nivers NE ACETATE 0-06 by mouth. ity of ORAL 15:04: [address] citalopram 2020- Yes 20mg Take 20 mg U nivers 20 mg 0-06 by mouth ity of tablet 15:04: daily. [address] clonazePAM 2020-1 Yes 2mg Take 2 mg [facility] 2 mg tablet 0-06 by mouth ity of 15:04: as needed. [address] NORETHINDRO 2019- Yes 1mg Take 1 mg U nivers NE ACETATE 0-06 by mouth. ity of ORAL 15:04: [address] citalopram 2019- Yes 20mg Take 20 mg U nivers 20 mg 0-06 by mouth ity of tablet 15:04: daily. [address] clonazePAM 2019- Yes 2mg Take 2 mg [facility] [place] 2 mg tablet 0-06 by mouth ity of 15:04: as needed. [address] NORETHINDRO 2019- Yes 1mg Take 1 mg U nivers NE ACETATE 0-06 by mouth. ity of ORAL 15:04: [address] citalopram 2019- Yes 20mg Take 20 mg U nivers 20 mg 0-06 by mouth ity of tablet 15:04: daily. [address] clonazePAM 2020-1 Yes 2mg Take 2 mg [facility] [place] 2 mg tablet 0-06 by mouth ity of 15:04: as needed. [address] NORETHINDRO 2019- Yes 1mg Take 1 mg U nivers NE ACETATE 0-06 by mouth. ity of ORAL 15:04: [address] citalopram 2020-1 Yes 20mg Take 20 mg U nivers 20 mg 0-06 by mouth ity of tablet 15:04: daily. [address] clonazePAM 2020-1 Yes 2mg Take 2 mg [facility] [place] 2 mg tablet 0-06 by mouth ity of 15:04: as needed. [address] NORETHINDRO 2020- Yes 1mg Take 1 mg U nivers NE ACETATE 0-06 by mouth. ity of ORAL 15:04: [address] citalopram 2020-1 Yes 20mg Take 20 mg U nivers 20 mg 0-06 by mouth ity of tablet 15:04: daily. [address] clonazePAM 2020-1 Yes 2mg Take 2 mg [facility] [place] 2 mg tablet 0-06 by mouth ity of 15:04: as needed. [address] NORETHINDRO 2020- Yes 1mg Take 1 mg U nivers NE ACETATE 0-06 by mouth. ity of ORAL 15:04: [address] citalopram 2020- Yes 20mg Take 20 mg U nivers 20 mg 0-06 by mouth ity of tablet 15:04: daily. [address] clonazePAM 2020- Yes 2mg Take 2 mg [facility] [place] 2 mg tablet 0-06 by mouth ity of 15:04: as needed. [address] NORETHINDRO 2020- Yes 1mg Take 1 mg U nivers NE ACETATE 0-06 by mouth. ity of ORAL 15:04: [address] citalopram 2020- Yes 20mg Take 20 mg U nivers 20 mg 0-06 by mouth ity of tablet 15:04: daily. [address] clonazePAM 2020-1 Yes 2mg Take 2 mg [facility] [place] 2 mg tablet 0-06 by mouth ity of 15:04: as needed. [address] NORETHINDRO 2019- Yes 1mg Take 1 mg U nivers NE ACETATE 0-06 by mouth. ity of ORAL 15:04: [address] citalopram 2020-1 Yes 20mg Take 20 mg U nivers 20 mg 0-06 by mouth ity of tablet 15:04: daily. [address] clonazePAM 2020-1 Yes 2mg Take 2 mg [facility] [place] 2 mg tablet 0-06 by mouth ity of 15:04: as needed. [address] NORETHINDRO 2020- Yes 1mg Take 1 mg U nivers NE ACETATE 0-06 by mouth. ity of ORAL 15:04: [address] citalopram 2020- Yes 20mg Take 20 mg [facility] nivers 20 mg 0-06 by mouth ity of tablet 15:04: daily. [address] clonazePAM 2020-1 Yes 2mg Take 2 mg [facility] [place] 2 mg tablet 0-06 by mouth ity of 15:04: as needed. [address] NORETHINDRO 2020- Yes 1mg Take 1 mg U nivers NE ACETATE 0-06 by mouth. ity of ORAL 15:04: [address] citalopram 2019- Yes 20mg Take 20 mg U nivers 20 mg 0-06 by mouth ity of tablet 15:04: daily. [address] clonazePAM 2019- Yes 2mg Take 2 mg [facility] [place] 2 mg tablet 0-06 by mouth ity of 15:04: as needed. [address] NORETHINDRO 2019- Yes 1mg Take 1 mg U nivers NE ACETATE 0-06 by mouth. ity of ORAL 15:04: [address] citalopram 2019- Yes 20mg Take 20 mg U nivers 20 mg 0-06 by mouth ity of tablet 15:04: daily. [address] clonazePAM 2019- Yes 2mg Take 2 mg [place] 2 mg tablet 0-06 by mouth ity of 15:04: as needed. [address] NORETHINDRO 2019- Yes 1mg Take 1 mg U nivers NE ACETATE 0-06 by mouth. ity of ORAL 15:04: [address] simethicone 2019-06 Yes PRN, Univer s (GAS RELIEF 0-06 Starting ity of (SIMETHICON 13:45: Tue [place] E)) 40 00 03/19/20 at Medical mg/0.6 mL 0845, Branch drops Until Discontinu ed, Routine, Intra-op citalopram 2020-0 Yes 20mg Take 20 mg U nivers 20 mg 7-28 by mouth ity of tablet 13:48: daily. [address] clonazePAM 2020-0 Yes 2mg Take 2 mg [facility] 2 mg tablet 7-28 by mouth ity of 13:48: as needed. [address] NORETHINDRO 2020-0 Yes 1mg Take 1 mg U nivers NE ACETATE 7-28 by mouth. ity of ORAL 13:48: [address] citalopram 2020-0 Yes 20mg Take 20 mg U nivers 20 mg 7-28 by mouth ity of tablet 13:48: daily. [address] clonazePAM 2020-0 Yes 2mg Take 2 mg [facility] 2 mg tablet 7-28 by mouth ity of 13:48: as needed. [address] NORETHINDRO 2020-0 Yes 1mg Take 1 mg U nivers NE ACETATE 7-28 by mouth. ity of ORAL 13:48: [address] citalopram 2020-0 Yes 20mg Take 20 mg U nivers 20 mg 7-28 by mouth ity of tablet 13:48: daily. [address] clonazePAM 2020-0 Yes 2mg Take 2 mg [facility] [place] 2 mg tablet 7-28 by mouth ity of 13:48: as needed. [address] NORETHINDRO 2020-0 Yes 1mg Take 1 mg U nivers NE ACETATE 7-28 by mouth. ity of ORAL 13:48: [address] citalopram 2020-0 Yes 20mg Take 20 mg U nivers 20 mg 7-28 by mouth ity of tablet 13:48: daily. [address] clonazePAM 2020-0 Yes 2mg Take 2 mg [facility] [place] 2 mg tablet 7-28 by mouth ity of 13:48: as needed. [address] NORETHINDRO 2020-0 Yes 1mg Take 1 mg U nivers NE ACETATE 7-28 by mouth. ity of ORAL 13:48: [address] citalopram 2020-0 Yes 20mg Take 20 mg U nivers 20 mg 7-28 by mouth ity of tablet 13:48: daily. [address] clonazePAM 2020-0 Yes 2mg Take 2 mg [place] 2 mg tablet 7-28 by mouth ity of 13:48: as needed. [address] NORETHINDRO 2020-0 Yes 1mg Take 1 mg U nivers NE ACETATE 7-28 by mouth. ity of ORAL 13:48: [address] citalopram 2020-0 Yes 20mg Take 20 mg U nivers 20 mg 7-28 by mouth ity of tablet 13:48: daily. [address] clonazePAM 2020-0 Yes 2mg Take 2 mg [place] 2 mg tablet 7-28 by mouth ity of 13:48: as needed. [address] NORETHINDRO 2020-0 Yes 1mg Take 1 mg U nivers NE ACETATE 7-28 by mouth. ity of ORAL 13:48: [address] citalopram 2020-0 Yes 20mg Take 20 mg U nivers 20 mg 7-28 by mouth ity of tablet 13:48: daily. [address] clonazePAM 2020-0 Yes 2mg Take 2 mg [place] 2 mg tablet 7-28 by mouth ity of 13:48: as needed. [address] NORETHINDRO 2020-0 Yes 1mg Take 1 mg U nivers NE ACETATE 7-28 by mouth. ity of ORAL 13:48: [address] citalopram 2020-0 Yes 20mg Take 20 mg U nivers 20 mg 7-28 by mouth ity of tablet 13:48: daily. [address] clonazePAM 2020-0 Yes 2mg Take 2 mg [place] 2 mg tablet 7-28 by mouth ity of 13:48: as needed. [address] NORETHINDRO 2020-0 Yes 1mg Take 1 mg U nivers NE ACETATE 7-28 by mouth. ity of ORAL 13:48: [address] citalopram 2020-0 Yes 20mg Take 20 mg U nivers 20 mg 7-28 by mouth ity of tablet 13:48: daily. [address] clonazePAM 2020-0 Yes 2mg Take 2 mg [place] 2 mg tablet 7-28 by mouth ity of 13:48: as needed. [address] NORETHINDRO 2020-0 Yes 1mg Take 1 mg U nivers NE ACETATE 7-28 by mouth. ity of ORAL 13:48: [address] citalopram 2020-0 Yes 20mg Take 20 mg U nivers 20 mg 7-28 by mouth ity of tablet 13:48: daily. [address] clonazePAM 2020-0 Yes 2mg Take 2 mg [place] 2 mg tablet 7-28 by mouth ity of 13:48: as needed. [address] NORETHINDRO 2020-0 Yes 1mg Take 1 mg U nivers NE ACETATE 7-28 by mouth. ity of ORAL 13:48: [address] cholestyram 2020-0 Yes [id number] 4g Take 1 [facility] ine light 7-28 Packet by ity o f (CHOLESTYRA 00:00: mouth 2 [place] MINE LIGHT) 00 (two) Medical 4 gram times Branch packet daily. cholestyram 2020-0 Yes [id number] 4g Take 1 [facility] ine light 7-28 Packet by ity o f (CHOLESTYRA 00:00: mouth 2 [place] MINE LIGHT) 00 (two) Medical 4 gram times Branch packet daily. cholestyram 2020-0 Yes [id number] 4g Take 1 [facility] ine light 7-28 Packet by ity o f (CHOLESTYRA 00:00: mouth 2 [place] MINE LIGHT) 00 (two) Medical 4 gram times Branch packet daily. cholestyram 2020-0 Yes [id number] 4g Take 1 [facility] ine light 7-28 Packet by ity o f (CHOLESTYRA 00:00: mouth 2 [place] MINE LIGHT) 00 (two) Medical 4 gram times Branch packet daily. cholestyram 2020-0 Yes [id number] 4g Take 1 [facility] ine light 7-28 Packet by ity o f (CHOLESTYRA 00:00: mouth 2 [place] MINE LIGHT) 00 (two) Medical 4 gram times Branch packet daily. cholestyram 2020-0 Yes [id number] 4g Take 1 [facility] ine light 7-28 Packet by ity o f (CHOLESTYRA 00:00: mouth 2 [place] MINE LIGHT) 00 (two) Medical 4 gram times Branch packet daily. cholestyram 2020-0 Yes [id number] 4g Take 1 [facility] ine light 7-28 Packet by ity o f (CHOLESTYRA 00:00: mouth 2 [place] MINE LIGHT) 00 (two) Medical 4 gram times Branch packet daily. cholestyram 2020-0 Yes [id number] 4g Take 1 [facility] ine light 7-28 Packet by ity o f (CHOLESTYRA 00:00: mouth 2 [place] MINE LIGHT) 00 (two) Medical 4 gram times Branch packet daily. cholestyram 2020-0 Yes [id number] 4g Take 1 [facility] ine light 7-28 Packet by ity o f (CHOLESTYRA 00:00: mouth 2 [place] MINE LIGHT) 00 (two) Medical 4 gram times Branch packet daily. cholestyram 2020-0 Yes [id number] 4g Take 1 [facility] ine light 7-28 Packet by ity o f (CHOLESTYRA 00:00: mouth 2 [place] MINE LIGHT) 00 (two) Medical 4 gram times Branch packet daily. cholestyram 2020-0 Yes [id number] 4g Take 1 [facility] ine light 7-28 Packet by ity o f (CHOLESTYRA 00:00: mouth 2 [place] MINE LIGHT) 00 (two) Medical 4 gram times Branch packet daily. cholestyram 2020-0 Yes [id number] 4g Take 1 [facility] ine light 7-28 Packet by ity o f (CHOLESTYRA 00:00: mouth 2 [place] MINE LIGHT) 00 (two) Medical 4 gram times Branch packet daily. cholestyram 2020-0 Yes [id number] 4g Take 1 [facility] ine light 7-28 Packet by ity o f (CHOLESTYRA 00:00: mouth 2 [place] MINE LIGHT) 00 (two) Medical 4 gram times Branch packet daily. cholestyram 2020-0 Yes [id number] 4g Take 1 [facility] ine light 7-28 Packet by ity o f (CHOLESTYRA 00:00: mouth 2 [place] MINE LIGHT) 00 (two) Medical 4 gram times Branch packet daily. cholestyram 2020-0 Yes [id number] 4g Take 1 [facility] ine light 7-28 Packet by ity o f (CHOLESTYRA 00:00: mouth 2 [place] MINE LIGHT) 00 (two) Medical 4 gram times Branch packet daily. cholestyram 2020-0 Yes [id number] 4g Take 1 [facility] ine light 7-28 Packet by ity o f (CHOLESTYRA 00:00: mouth 2 [place] MINE LIGHT) 00 (two) Medical 4 gram times Branch packet daily. cholestyram 2020-0 Yes [id number] 4g Take 1 [facility] ine light 7-28 Packet by ity o f (CHOLESTYRA 00:00: mouth 2 [place] MINE LIGHT) 00 (two) Medical 4 gram times Branch packet daily. cholestyram 2020-0 Yes [id number] 4g Take 1 [facility] ine light 7-28 Packet by ity o f (CHOLESTYRA 00:00: mouth 2 [place] MINE LIGHT) 00 (two) Medical 4 gram times Branch packet daily. cholestyram 2020-0 Yes [id number] 4g Take 1 [facility] ine light 7-28 Packet by ity o f (CHOLESTYRA 00:00: mouth 2 [place] MINE LIGHT) 00 (two) Medical 4 gram times Branch packet daily. cholestyram 2020-0 Yes [id number] 4g Take 1 [facility] ine light 7-28 Packet by ity o f (CHOLESTYRA 00:00: mouth 2 [place] MINE LIGHT) 00 (two) Medical 4 gram times Branch packet daily. cholestyram 2020-0 Yes [id number] 4g Take 1 [facility] ine light 7-28 Packet by ity o f (CHOLESTYRA 00:00: mouth 2 [place] MINE LIGHT) 00 (two) Medical 4 gram times Branch packet daily. cholestyram 2020-0 Yes [id number] 4g Take 1 [facility] ine light 7-28 Packet by ity o f (CHOLESTYRA 00:00: mouth 2 [place] MINE LIGHT) 00 (two) Medical 4 gram times Branch packet daily. cholestyram 2020- No [id number] 4g Take 1 [facility] ine light 7-28 12-10 Packet by ity of (CHOLESTYRA 00:00: 00:00 mouth 2 [place] MINE LIGHT) 00 :00 (two) Medical 4 gram times Branch packet daily. cholestyram 2019-2019- No [id number] 4g Take 1 [facility] ine light 7-28 12-10 Packet by ity of (CHOLESTYRA 00:00: 00:00 mouth 2 [place] MINE LIGHT) 00 :00 (two) Medical 4 gram times Branch packet daily. pantoprazol 2019- No [id number] 40mg Take 1 [facility] e 40 mg EC 7-28 10-27 tablet by ity of tablet 00:00: 04:59 mouth 2 [place] 00 :00 (two) Medical times Branch daily for 90 days. pantoprazol 2019-2019- No [id number] 40mg Take 1 [facility] e 40 mg EC 7-28 10-27 tablet by ity of tablet 00:00: 04:59 mouth 2 [place] 00 :00 (two) Medical times Branch daily for 90 days. pantoprazol 2019- 2020- No [id number] 40mg Take 1 [facility] e 40 mg EC 7-28 10-27 tablet by ity of tablet 00:00: 04:59 mouth 2 [place] 00 :00 (two) Medical times Branch daily for 90 days. pantoprazol 2020-0 2020- No [id number] 40mg Take 1 [facility] e 40 mg EC 7-28 10-27 tablet by ity of tablet 00:00: 04:59 mouth 2 [place] 00 :00 (two) Medical times Branch daily for 90 days. pantoprazol 2019-2019- No [id number] 40mg Take 1 [facility] e 40 mg EC 7-28 10-27 tablet by ity of tablet 00:00: 04:59 mouth 2 [place] 00 :00 (two) Medical times Branch daily for 90 days. pantoprazol 2019-2019- No [id number] 40mg Take 1 [facility] e 40 mg EC 7-28 10-27 tablet by ity of tablet 00:00: 04:59 mouth 2 [place] 00 :00 (two) Medical times Branch daily for 90 days. pantoprazol 2019-2019- No [id number] 40mg Take 1 [facility] e 40 mg EC 7-28 10-27 tablet by ity of tablet 00:00: 04:59 mouth 2 [place] 00 :00 (two) Medical times Branch daily for 90 days. pantoprazol 2019-2019- No [id number] 40mg Take 1 [facility] e 40 mg EC 7-28 10-27 tablet by ity of tablet 00:00: 04:59 mouth 2 [place] 00 :00 (two) Medical times Branch daily for 90 days. pantoprazol 2019-2019- No [id number] 40mg Take 1 [facility] e 40 mg EC 7-28 10-27 tablet by ity of tablet 00:00: 04:59 mouth 2 [place] 00 :00 (two) Medical times Branch daily for 90 days. pantoprazol 2019-2019- No [id number] 40mg Take 1 [facility] e 40 mg EC 7-28 10-27 tablet by ity of tablet 00:00: 04:59 mouth 2 [place] 00 :00 (two) Medical times Branch daily for 90 days. pantoprazol 2019-2019- No [id number] 40mg Take 1 [facility] e 40 mg EC 7-28 10-27 tablet by ity of tablet 00:00: 04:59 mouth 2 [place] 00 :00 (two) Medical times Branch daily for 90 days. pantoprazol 2019-0 2019- No [id number] 40mg Take 1 [facility] e 40 mg EC 7-28 10-27 tablet by ity of tablet 00:00: 04:59 mouth 2 [place] 00 :00 (two) Medical times Branch daily for 90 days. pantoprazol 2019-0 2019- No [id number] 40mg Take 1 [facility] e 40 mg EC 7-28 10-27 tablet by ity of tablet 00:00: 04:59 mouth 2 [place] 00 :00 (two) Medical times Branch daily for 90 days. peg-electro 2019-2019- No [id number] 4000mL Take 4,000 [facility] lyte soln 7-28 07-29 mL by ity of (GOLYTELY) 00:00: 04:59 mouth once [place] [id number] 00 :00 now for 1 Med ical .74 -5.86 dose. Take Bran ch gram 1/2 of the solution prep the afternoon before your procedure, and you will take the other half of this preparatio n at 4 am the morning of your procedure peg-electro 2020-0 2020- No [id number] 4000mL Take 4,000 [facility] lyte soln 7-28 07-29 mL by ity of (GOLYTELY) 00:00: 04:59 mouth once [place] [id number] 00 :00 now for 1 Med ical .74 -5.86 dose. Take Bran ch gram 1/2 of the solution prep the afternoon before your procedure, and you will take the other half of this preparatio n at 4 am the morning of your procedure morpHINE 2019-2019- No 4mg 4 mg, Slow Un jodie injection 4 10-23 IV Push, ity of mg 03:15: 02:09 ONCE, 1 [place] 00 :00 dose, Mon Medical 10/23/19 at [place] 2214, STAT maalox:diph 2019-2019- No 15mL 15 mL, Uni vers enhydrAMINE 10-23 Oral, ity of :lidocaine 03:15: 02:09 ONCE, 1 [place] 2 % viscous 00 :00 dose, Mon Med ical 1:1:1 10/23/19 at [place] (FIRST-MOUT 2214, HWASH BLM) Routine oral suspension 15 mL famotidine 2019- No 20mg 20 mg, Univ ers (PEPCID 10-23 Slow IV ity of (PF)) 03:15: 02:09 Push, [place] injection 00 :00 ONCE, 1 Medical 20 mg dose, [facility] 10/23/19 at 5, HAILEE iohexol 2019-0 2020- No 120mL 120 mL, Unive rs (OMNIPAQUE 10-23 Intravenou it y of 350 02:15: 02:15 s, ONCE, 1 [place] BULK-150 00 :00 dose, Mon Medica l mL) 10/23/19 at [place] injection 2114, 120 mL Routine ondansetron 2020-0 2020- No 4mg 4 mg, Slow Univers (ZOFRAN 5-12 05-12 IV Push, ity of (PF)) 02:00: 01:08 ONCE, 1 [place] injection 4 00 :00 dose, Mon Med ical mg 10/23/19 at Branch 2100, HAILEE morpHINE 2019-0 2020- No 4mg 4 mg, Slow Un jodie injection 4 5-12 05-12 IV Push, ity of mg 02:00: 01:08 ONCE, 1 [place] 00 :00 dose, Mon Medical 10/23/19 at Branch 2100, STAT NaCl 0.9% 2019-0 2020- No 1000mL at 999 Uni vers (NS) bolus 5 05-12 mL/hr, ity of infusion 02:00: 03:16 1,000 mL, [place] 1,000 mL 00 :00 IV Medical Infusion, Branch ONCE, 1 dose, 10/23/19 at 2100, STAT ondansetron 2020-0 Yes [id number] 4mg Take 1 [facility] (ZOFRAN 5-11 tablet by ity of ODT) 4 mg 00:00: mouth [place] disintegrat 00 every 8 Medic al ing tablet (eight) Branch hours as needed for Nausea and Vomiting (N/V). ondansetron 2020-0 Yes [id number] 4mg Take 1 [facility] (ZOFRAN 5-11 tablet by ity of ODT) 4 mg 00:00: mouth [place] disintegrat 00 every 8 Medic al ing tablet (eight) Branch hours as needed for Nausea and Vomiting (N/V). ondansetron 2020-0 Yes [id number] 4mg Take 1 [facility] (ZOFRAN 5-11 tablet by ity of ODT) 4 mg 00:00: mouth [place] disintegrat 00 every 8 Medic al ing tablet (eight) Branch hours as needed for Nausea and Vomiting (N/V). ondansetron 2020-0 Yes [id number] 4mg Take 1 [facility] (ZOFRAN 5-11 tablet by ity of ODT) 4 mg 00:00: mouth [place] disintegrat 00 every 8 Medic al ing tablet (eight) Branch hours as needed for Nausea and Vomiting (N/V). ondansetron 2020-0 Yes [id number] 4mg Take 1 [facility] (ZOFRAN 5-11 tablet by ity of ODT) 4 mg 00:00: mouth [place] disintegrat 00 every 8 Medic al ing tablet (eight) Branch hours as needed for Nausea and Vomiting (N/V). ondansetron 2020-0 Yes [id number] 4mg Take 1 [facility] (ZOFRAN 5-11 tablet by ity of ODT) 4 mg 00:00: mouth [place] disintegrat 00 every 8 Medic al ing tablet (eight) Branch hours as needed for Nausea and Vomiting (N/V). ondansetron 2020-0 Yes [id number] 4mg Take 1 [facility] (ZOFRAN 5-11 tablet by ity of ODT) 4 mg 00:00: mouth [place] disintegrat 00 every 8 Medic al ing tablet (eight) Branch hours as needed for Nausea and Vomiting (N/V). ondansetron 2020-0 Yes [id number] 4mg Take 1 [facility] (ZOFRAN 5-11 tablet by ity of ODT) 4 mg 00:00: mouth [place] disintegrat 00 every 8 Medic al ing tablet (eight) Branch hours as needed for Nausea and Vomiting (N/V). ondansetron 2020-0 Yes [id number] 4mg Take 1 [facility] (ZOFRAN 5-11 tablet by ity of ODT) 4 mg 00:00: mouth [place] disintegrat 00 every 8 Medic al ing tablet (eight) Branch hours as needed for Nausea and Vomiting (N/V). ondansetron 2020-0 Yes [id number] 4mg Take 1 [facility] (ZOFRAN 5-11 tablet by ity of ODT) 4 mg 00:00: mouth [place] disintegrat 00 every 8 Medic al ing tablet (eight) Branch hours as needed for Nausea and Vomiting (N/V). ondansetron 2020-0 Yes [id number] 4mg Take 1 [facility] (ZOFRAN 5-11 tablet by ity of ODT) 4 mg 00:00: mouth [place] disintegrat 00 every 8 Medic al ing tablet (eight) Branch hours as needed for Nausea and Vomiting (N/V). ondansetron 2020-0 Yes [id number] 4mg Take 1 [facility] (ZOFRAN 5-11 tablet by ity of ODT) 4 mg 00:00: mouth [place] disintegrat 00 every 8 Medic al ing tablet (eight) Branch hours as needed for Nausea and Vomiting (N/V). ondansetron 2020-0 Yes [id number] 4mg Take 1 [facility] (ZOFRAN 5-11 tablet by ity of ODT) 4 mg 00:00: mouth [place] disintegrat 00 every 8 Medic al ing tablet (eight) Branch hours as needed for Nausea and Vomiting (N/V). ondansetron 2020-0 Yes [id number] 4mg Take 1 [facility] (ZOFRAN 5-11 tablet by ity of ODT) 4 mg 00:00: mouth [place] disintegrat 00 every 8 Medic al ing tablet (eight) Branch hours as needed for Nausea and Vomiting (N/V). ondansetron 2020-0 Yes [id number] 4mg Take 1 [facility] (ZOFRAN 5-11 tablet by ity of ODT) 4 mg 00:00: mouth [place] disintegrat 00 every 8 Medic al ing tablet (eight) Branch hours as needed for Nausea and Vomiting (N/V). ondansetron 2020-0 Yes [id number] 4mg Take 1 [facility] (ZOFRAN 5-11 tablet by ity of ODT) 4 mg 00:00: mouth [place] disintegrat 00 every 8 Medic al ing tablet (eight) Branch hours as needed for Nausea and Vomiting (N/V). ondansetron 2020-0 Yes [id number] 4mg Take 1 [facility] (ZOFRAN 5-11 tablet by ity of ODT) 4 mg 00:00: mouth [place] disintegrat 00 every 8 Medic al ing tablet (eight) Branch hours as needed for Nausea and Vomiting (N/V). ondansetron 2020-0 Yes [id number] 4mg Take 1 [facility] (ZOFRAN 5-11 tablet by ity of ODT) 4 mg 00:00: mouth [place] disintegrat 00 every 8 Medic al ing tablet (eight) Branch hours as needed for Nausea and Vomiting (N/V). ondansetron 2020-0 Yes [id number] 4mg Take 1 [facility] (ZOFRAN 5-11 tablet by ity of ODT) 4 mg 00:00: mouth [place] disintegrat 00 every 8 Medic al ing tablet (eight) Branch hours as needed for Nausea and Vomiting (N/V). ondansetron 2020-0 Yes [id number] 4mg Take 1 [facility] (ZOFRAN 5-11 tablet by ity of ODT) 4 mg 00:00: mouth [place] disintegrat 00 every 8 Medic al ing tablet (eight) Branch hours as needed for Nausea and Vomiting (N/V). ondansetron 2020-0 Yes [id number] 4mg Take 1 [facility] (ZOFRAN 5-11 tablet by ity of ODT) 4 mg 00:00: mouth [place] disintegrat 00 every 8 Medic al ing tablet (eight) Branch hours as needed for Nausea and Vomiting (N/V). acetaminoph 2020-0 Yes [id number] 1{tbl} Take 1 [facility] en-codeine 5-11 tablet by ity of (TYLENOL-CO 00:00: mouth [place] DEINE #3) 00 every 4 Medical 300-30 mg (four) Branch tablet hours as needed for Pain (scale 7-10). ondansetron 2020-0 Yes [id number] 4mg Take 1 Univers (ZOFRAN 5-11 tablet by ity of ODT) 4 mg 00:00: mouth [place] disintegrat 00 every 8 Medic al ing tablet (eight) Branch hours as needed for Nausea and Vomiting (N/V). famotidine 2020-0 Yes [id number] 20mg Take 1 U nivers (PEPCID) 20 5-11 tablet by ity of mg tablet 00:00: mouth 2 [place] 00 (two) Medical times Branch daily. acetaminoph 2020-0 Yes [id number] 1{tbl} Take 1 [facility] en-codeine 5-11 tablet by ity of (TYLENOL-CO 00:00: mouth [place] DEINE #3) 00 every 4 Medical 300-30 mg (four) Branch tablet hours as needed for Pain (scale 7-10). ondansetron 2020-0 Yes [id number] 4mg Take 1 Univers (ZOFRAN 5-11 tablet by ity of ODT) 4 mg 00:00: mouth [place] disintegrat 00 every 8 Medic al ing tablet (eight) Branch hours as needed for Nausea and Vomiting (N/V). famotidine 2020-0 Yes [id number] 20mg Take 1 U nivers (PEPCID) 20 5-11 tablet by ity of mg tablet 00:00: mouth 2 [place] 00 (two) Medical times Branch daily. acetaminoph 2020-0 Yes [id number] 1{tbl} Take 1 [facility] en-codeine 5-11 tablet by ity of (TYLENOL-CO 00:00: mouth [place] DEINE #3) 00 every 4 Medical 300-30 mg (four) Branch tablet hours as needed for Pain (scale 7-10). ondansetron 2020-0 Yes [id number] 4mg Take 1 Univers (ZOFRAN 5-11 tablet by ity of ODT) 4 mg 00:00: mouth [place] disintegrat 00 every 8 Medic al ing tablet (eight) Branch hours as needed for Nausea and Vomiting (N/V). acetaminoph 2020-0 Yes [id number] 1{tbl} Take 1 [facility] en-codeine 5-11 tablet by ity of (TYLENOL-CO 00:00: mouth [place] DEINE #3) 00 every 4 Medical 300-30 mg (four) Branch tablet hours as needed for Pain (scale 7-10). ondansetron 2020-0 Yes [id number] 4mg Take 1 Univers (ZOFRAN 5-11 tablet by ity of ODT) 4 mg 00:00: mouth [place] disintegrat 00 every 8 Medic al ing tablet (eight) Branch hours as needed for Nausea and Vomiting (N/V). acetaminoph 2020-0 Yes [id number] 1{tbl} Take 1 [facility] en-codeine 5-11 tablet by ity of (TYLENOL-CO 00:00: mouth [place] DEINE #3) 00 every 4 Medical 300-30 mg (four) Branch tablet hours as needed for Pain (scale 7-10). ondansetron 2020-0 Yes [id number] 4mg Take 1 Univers (ZOFRAN 5-11 tablet by ity of ODT) 4 mg 00:00: mouth [place] disintegrat 00 every 8 Medic al ing tablet (eight) Branch hours as needed for Nausea and Vomiting (N/V). acetaminoph 2020-0 Yes [id number] 1{tbl} Take 1 [facility] en-codeine 5-11 tablet by ity of (TYLENOL-CO 00:00: mouth [place] DEINE #3) 00 every 4 Medical 300-30 mg (four) Branch tablet hours as needed for Pain (scale 7-10). ondansetron 2020-0 Yes [id number] 4mg Take 1 Univers (ZOFRAN 5-11 tablet by ity of ODT) 4 mg 00:00: mouth [place] disintegrat 00 every 8 Medic al ing tablet (eight) Branch hours as needed for Nausea and Vomiting (N/V). acetaminoph 2020-0 Yes [id number] 1{tbl} Take 1 [facility] en-codeine 5-11 tablet by ity of (TYLENOL-CO 00:00: mouth [place] DEINE #3) 00 every 4 Medical 300-30 mg (four) Branch tablet hours as needed for Pain (scale 7-10). ondansetron 2020-0 Yes [id number] 4mg Take 1 Univers (ZOFRAN 5-11 tablet by ity of ODT) 4 mg 00:00: mouth [place] disintegrat 00 every 8 Medic al ing tablet (eight) Branch hours as needed for Nausea and Vomiting (N/V). acetaminoph 2020-0 Yes [id number] 1{tbl} Take 1 [facility] en-codeine 5-11 tablet by ity of (TYLENOL-CO 00:00: mouth [place] DEINE #3) 00 every 4 Medical 300-30 mg (four) Branch tablet hours as needed for Pain (scale 7-10). ondansetron 2020-0 Yes [id number] 4mg Take 1 Univers (ZOFRAN 5-11 tablet by ity of ODT) 4 mg 00:00: mouth [place] disintegrat 00 every 8 Medic al ing tablet (eight) Branch hours as needed for Nausea and Vomiting (N/V). acetaminoph 2020-0 Yes [id number] 1{tbl} Take 1 [facility] en-codeine 5-11 tablet by ity of (TYLENOL-CO 00:00: mouth [place] DEINE #3) 00 every 4 Medical 300-30 mg (four) Branch tablet hours as needed for Pain (scale 7-10). ondansetron 2020-0 Yes [id number] 4mg Take 1 Univers (ZOFRAN 5-11 tablet by ity of ODT) 4 mg 00:00: mouth [place] disintegrat 00 every 8 Medic al ing tablet (eight) Branch hours as needed for Nausea and Vomiting (N/V). acetaminoph 2020-0 Yes [id number] 1{tbl} Take 1 [facility] en-codeine 5-11 tablet by ity of (TYLENOL-CO 00:00: mouth [place] DEINE #3) 00 every 4 Medical 300-30 mg (four) Branch tablet hours as needed for Pain (scale 7-10). ondansetron 2020-0 Yes [id number] 4mg Take 1 Univers (ZOFRAN 5-11 tablet by ity of ODT) 4 mg 00:00: mouth [place] disintegrat 00 every 8 Medic al ing tablet (eight) Branch hours as needed for Nausea and Vomiting (N/V). acetaminoph 2020-0 Yes [id number] 1{tbl} Take 1 [facility] en-codeine 5-11 tablet by ity of (TYLENOL-CO 00:00: mouth [place] DEINE #3) 00 every 4 Medical 300-30 mg (four) Branch tablet hours as needed for Pain (scale 7-10). ondansetron 2020-0 Yes [id number] 4mg Take 1 Univers (ZOFRAN 5-11 tablet by ity of ODT) 4 mg 00:00: mouth [place] disintegrat 00 every 8 Medic al ing tablet (eight) Branch hours as needed for Nausea and Vomiting (N/V). acetaminoph 2020-0 Yes [id number] 1{tbl} Take 1 [facility] en-codeine 5-11 tablet by ity of (TYLENOL-CO 00:00: mouth [place] DEINE #3) 00 every 4 Medical 300-30 mg (four) Branch tablet hours as needed for Pain (scale 7-10). ondansetron 2020-0 Yes [id number] 4mg Take 1 Univers (ZOFRAN 5-11 tablet by ity of ODT) 4 mg 00:00: mouth [place] disintegrat 00 every 8 Medic al ing tablet (eight) Branch hours as needed for Nausea and Vomiting (N/V). acetaminoph 2020-0 Yes [id number] 1{tbl} Take 1 [facility] en-codeine 5-11 tablet by ity of (TYLENOL-CO 00:00: mouth [place] DEINE #3) 00 every 4 Medical 300-30 mg (four) Branch tablet hours as needed for Pain (scale 7-10). ondansetron 2020-0 Yes [id number] 4mg Take 1 Univers (ZOFRAN 5-11 tablet by ity of ODT) 4 mg 00:00: mouth [place] disintegrat 00 every 8 Medic al ing tablet (eight) Branch hours as needed for Nausea and Vomiting (N/V). acetaminoph 2020-0 Yes [id number] 1{tbl} Take 1 [facility] en-codeine 5-11 tablet by ity of (TYLENOL-CO 00:00: mouth [place] DEINE #3) 00 every 4 Medical 300-30 mg (four) Branch tablet hours as needed for Pain (scale 7-10). ondansetron 2020-0 Yes [id number] 4mg Take 1 Univers (ZOFRAN 5-11 tablet by ity of ODT) 4 mg 00:00: mouth [place] disintegrat 00 every 8 Medic al ing tablet (eight) Branch hours as needed for Nausea and Vomiting (N/V). acetaminoph 2020-0 Yes [id number] 1{tbl} Take 1 [facility] en-codeine 5-11 tablet by ity of (TYLENOL-CO 00:00: mouth [place] DEINE #3) 00 every 4 Medical 300-30 mg (four) Branch tablet hours as needed for Pain (scale 7-10). ondansetron 2020-0 Yes [id number] 4mg Take 1 Univers (ZOFRAN 5-11 tablet by ity of ODT) 4 mg 00:00: mouth [place] disintegrat 00 every 8 Medic al ing tablet (eight) Branch hours as needed for Nausea and Vomiting (N/V). acetaminoph 2020-0 Yes [id number] 1{tbl} Take 1 [facility] en-codeine 5-11 tablet by ity of (TYLENOL-CO 00:00: mouth [place] DEINE #3) 00 every 4 Medical 300-30 mg (four) Branch tablet hours as needed for Pain (scale 7-10). ondansetron 2020-0 Yes [id number] 4mg Take 1 Univers (ZOFRAN 5-11 tablet by ity of ODT) 4 mg 00:00: mouth [place] disintegrat 00 every 8 Medic al ing tablet (eight) Branch hours as needed for Nausea and Vomiting (N/V). acetaminoph 2020-0 Yes [id number] 1{tbl} Take 1 [facility] en-codeine 5-11 tablet by ity of (TYLENOL-CO 00:00: mouth [place] DEINE #3) 00 every 4 Medical 300-30 mg (four) Branch tablet hours as needed for Pain (scale 7-10). ondansetron 2020-0 Yes [id number] 4mg Take 1 Univers (ZOFRAN 5-11 tablet by ity of ODT) 4 mg 00:00: mouth [place] disintegrat 00 every 8 Medic al ing tablet (eight) Branch hours as needed for Nausea and Vomiting (N/V). acetaminoph 2020-0 Yes [id number] 1{tbl} Take 1 [facility] en-codeine 5-11 tablet by ity of (TYLENOL-CO 00:00: mouth [place] DEINE #3) 00 every 4 Medical 300-30 mg (four) Branch tablet hours as needed for Pain (scale 7-10). ondansetron 2020-0 Yes [id number] 4mg Take 1 [facility] (ZOFRAN 5-11 tablet by ity of ODT) 4 mg 00:00: mouth [place] disintegrat 00 every 8 Medic al ing tablet (eight) Branch hours as needed for Nausea and Vomiting (N/V). acetaminoph 2020-0 Yes [id number] 1{tbl} Take 1 [facility] en-codeine 5-11 tablet by ity of (TYLENOL-CO 00:00: mouth [place] DEINE #3) 00 every 4 Medical 300-30 mg (four) Branch tablet hours as needed for Pain (scale 7-10). ondansetron 2020-0 Yes [id number] 4mg Take 1 Univers (ZOFRAN 5-11 tablet by ity of ODT) 4 mg 00:00: mouth [place] disintegrat 00 every 8 Medic al ing tablet (eight) Branch hours as needed for Nausea and Vomiting (N/V). acetaminoph 2020-0 Yes [id number] 1{tbl} Take 1 [facility] en-codeine 5-11 tablet by ity of (TYLENOL-CO 00:00: mouth [place] DEINE #3) 00 every 4 Medical 300-30 mg (four) Branch tablet hours as needed for Pain (scale 7-10). ondansetron 2020-0 Yes [id number] 4mg Take 1 Univers (ZOFRAN 5-11 tablet by ity of ODT) 4 mg 00:00: mouth [place] disintegrat 00 every 8 Medic al ing tablet (eight) Branch hours as needed for Nausea and Vomiting (N/V). acetaminoph 2020-0 Yes [id number] 1{tbl} Take 1 [facility] en-codeine 5-11 tablet by ity of (TYLENOL-CO 00:00: mouth [place] DEINE #3) 00 every 4 Medical 300-30 mg (four) Branch tablet hours as needed for Pain (scale 7-10). ondansetron 2020-0 Yes [id number] 4mg Take 1 [facility] (ZOFRAN 5-11 tablet by ity of ODT) 4 mg 00:00: mouth [place] disintegrat 00 every 8 Medic al ing tablet (eight) Branch hours as needed for Nausea and Vomiting (N/V). acetaminoph 2020-0 Yes [id number] 1{tbl} Take 1 [facility] en-codeine 5-11 tablet by ity of (TYLENOL-CO 00:00: mouth [place] DEINE #3) 00 every 4 Medical 300-30 mg (four) Branch tablet hours as needed for Pain (scale 7-10). ondansetron 2020-0 Yes [id number] 4mg Take 1 [facility] (ZOFRAN 5-11 tablet by ity of ODT) 4 mg 00:00: mouth [place] disintegrat 00 every 8 Medic al ing tablet (eight) Branch hours as needed for Nausea and Vomiting (N/V). acetaminoph 2020-0 Yes [id number] 1{tbl} Take 1 [facility] en-codeine 5-11 tablet by ity of (TYLENOL-CO 00:00: mouth [place] DEINE #3) 00 every 4 Medical 300-30 mg (four) Branch tablet hours as needed for Pain (scale 7-10). ondansetron 2020-0 Yes [id number] 4mg Take 1 [facility] (ZOFRAN 5-11 tablet by ity of ODT) 4 mg 00:00: mouth [place] disintegrat 00 every 8 Medic al ing tablet (eight) Branch hours as needed for Nausea and Vomiting (N/V). acetaminoph 2020-0 Yes [id number] 1{tbl} Take 1 [facility] en-codeine 5-11 tablet by ity of (TYLENOL-CO 00:00: mouth [place] DEINE #3) 00 every 4 Medical 300-30 mg (four) Branch tablet hours as needed for Pain (scale 7-10). ondansetron 2020-0 Yes [id number] 4mg Take 1 [facility] (ZOFRAN 5-11 tablet by ity of ODT) 4 mg 00:00: mouth [place] disintegrat 00 every 8 Medic al ing tablet (eight) Branch hours as needed for Nausea and Vomiting (N/V). ondansetron 2020-0 Yes [id number] 4mg Take 1 [facility] (ZOFRAN 5-11 tablet by ity of ODT) 4 mg 00:00: mouth [place] disintegrat 00 every 8 Medic al ing tablet (eight) Branch hours as needed for Nausea and Vomiting (N/V). ondansetron 2020-0 Yes [id number] 4mg Take 1 [facility] (ZOFRAN 5-11 tablet by ity of ODT) 4 mg 00:00: mouth [place] disintegrat 00 every 8 Medic al ing tablet (eight) Branch hours as needed for Nausea and Vomiting (N/V). ondansetron 2020-0 Yes [id number] 4mg Take 1 [facility] (ZOFRAN 5-11 tablet by ity of ODT) 4 mg 00:00: mouth [place] disintegrat 00 every 8 Medic al ing tablet (eight) Branch hours as needed for Nausea and Vomiting (N/V). ondansetron 2020-0 Yes [id number] 4mg Take 1 [facility] (ZOFRAN 5-11 tablet by ity of ODT) 4 mg 00:00: mouth [place] disintegrat 00 every 8 Medic al ing tablet (eight) Branch hours as needed for Nausea and Vomiting (N/V). ondansetron 2020-0 Yes [id number] 4mg Take 1 [facility] (ZOFRAN 5-11 tablet by ity of ODT) 4 mg 00:00: mouth [place] disintegrat 00 every 8 Medic al ing tablet (eight) Branch hours as needed for Nausea and Vomiting (N/V). ondansetron 2020-0 Yes [id number] 4mg Take 1 [facility] (ZOFRAN 5-11 tablet by ity of ODT) 4 mg 00:00: mouth [place] disintegrat 00 every 8 Medic al ing tablet (eight) Branch hours as needed for Nausea and Vomiting (N/V). ondansetron 2020-0 Yes [id number] 4mg Take 1 [facility] (ZOFRAN 5-11 tablet by ity of ODT) 4 mg 00:00: mouth [place] disintegrat 00 every 8 Medic al ing tablet (eight) Branch hours as needed for Nausea and Vomiting (N/V). ondansetron 2020-0 Yes [id number] 4mg Take 1 [facility] (ZOFRAN 5-11 tablet by ity of ODT) 4 mg 00:00: mouth [place] disintegrat 00 every 8 Medic al ing tablet (eight) Branch hours as needed for Nausea and Vomiting (N/V). ondansetron 2020-0 Yes [id number] 4mg Take 1 [facility] (ZOFRAN 5-11 tablet by ity of ODT) 4 mg 00:00: mouth [place] disintegrat 00 every 8 Medic al ing tablet (eight) Branch hours as needed for Nausea and Vomiting (N/V). ondansetron 2020-0 Yes [id number] 4mg Take 1 [facility] (ZOFRAN 5-11 tablet by ity of ODT) 4 mg 00:00: mouth [place] disintegrat 00 every 8 Medic al ing tablet (eight) Branch hours as needed for Nausea and Vomiting (N/V). ondansetron 2020-0 Yes [id number] 4mg Take 1 Univers (ZOFRAN 5-11 tablet by ity of ODT) 4 mg 00:00: mouth [place] disintegrat 00 every 8 Medic al ing tablet (eight) Branch hours as needed for Nausea and Vomiting (N/V). acetaminoph 2020-0 2020- No [id number] 1{tbl} Take 1 [facility] en-codeine 5-11 12-10 tablet by ity of (TYLENOL-CO 00:00[place] #3[place] :00 every 4 Medical 300-30 mg (four) Branch tablet hours as needed for Pain (scale 7-10). acetaminoph 2020-0 2020- No [id number] 1{tbl} Take 1 [facility] en-codeine 5-11 12-10 tablet by ity of (TYLENOL-CO 00:00: [place] DE[place] #3[place] 00 :00 every 4 Medical 300-30 mg (four) Branch tablet hours as needed for Pain (scale 7-10). famotidine 2020-0 2020- No [id number] 20mg Take 1 [facility] (PEPCID) 20 5-11 07-28 tablet by it y of mg tablet 00:00: 00:[place] :[place] (two) Medical times Branch daily. famotidine 2020-0 2020- No [id number] 20mg Take 1 [facility] (PEPCID) 20 5-11 07-28 tablet by it y of mg tablet 00:00: 00:[place] 00 :[place] (two) Medical times Branch daily. famotidine 2020-0 2020- No [id number] 20mg Take 1 [facility] (PEPCID) 20 5-11 07-28 tablet by it y of mg tablet 00:00: 00:[place] 00 :[place] (two) Medical times Branch daily. famotidine 2020-0 2020- No [id number] 20mg Take 1 [facility] (PEPCID) 20 5-04 20-28 tablet by it y of mg tablet 00:00: 00:00 [place] 00 :[place] (two) Medical times Branch daily. famotidine 2019- 2020- No [id number] 20mg Take 1 [facility] (PEPCID) 20 5-04 20-28 tablet by it y of mg tablet 00:00: 00:00 [place] 00 :[place] (two) Medical times Branch daily. HYDROcodone 2019-0 2020- No 1{tbl} 1 tablet, Univers -acetaminop 07-22-08 Oral, ity of hen (NORCO 17:15: 16:09 ONCE, 1 [place] as 5) 5-325 mg 00 :00 dose, Sat Med ical tablet 1 07/22/19 at [place] tablet 1115, HAILEE ondansetron 2019-2019- No 4mg 4 mg, Slow Univers (ZOFRAN 07-22 IV Push, ity of (PF)) 16:30: 15:13 ONCE, 1 [place] injection 4 00 :00 dose, Sat Med ical mg 07/22/19 at Branch 1030, HAILEE ketorolac 2019-2019- No 30mg 30 mg, Unive rs (TORADOL) 07-22- Slow IV ity of injection 16:15: 15:14 Push, [place] 30 mg 00 :00 ONCE, 1 Medical dose, Sat Branch 07/22/19 at 1015, Routine
council member approving Restricted medication : TARUN [place] NaCl 0.9% 2019- No 1000mL at 999 Uni vers (NS) bolus 07-22-08 mL/hr, ity of infusion 15:15: 18:08 1,000 mL, [place] as 1,000 mL 00 :00 IV Medical Infusion, Branch ONCE, 1 dose, 07/22/19 at 0915, HAILEE acetaminoph 2019-0 Yes [id number] 1{tbl} Take 1 Univers en-codeine 2-08 tablet by ity of (TYLENOL-CO 00:00: mouth [place] DEINE #3) 00 every 6 Medical 300-30 mg (six) Branch tablet hours as needed for Pain (scale 4-6). acetaminoph 2019-0 Yes [id number] 1{tbl} Take 1 Univers en-codeine 2-08 tablet by ity of (TYLENOL-CO 00:00: mouth [place] DEINE #3) 00 every 6 Medical 300-30 mg (six) Branch tablet hours as needed for Pain (scale 4-6). acetaminoph 2019-0 2020- No [id number] 1{tbl} Take 1 [facility] en-codeine 2-08 05-11 tablet by ity of (TYLENOL-CO 00:00: 00:[place] DE[place] #3[place] 00 :00 every 6 Medical 300-30 mg (six) Branch tablet hours as needed for Pain (scale 4-6). amoxicillin 2019- 2020- No [id number] 1{tbl} Take 1 Univers -clavulanat 2-08 02-19 tablet by it y of e [id number] 00:00: 05:59 mouth [place] mg per 00 :00 every 12 Medical tablet (twelve) Branch hours for 10 days. citalopram 2019-0 Yes 20mg Take 20 mg U nivers 20 mg 2-04 by mouth ity of tablet 16:07: daily. [address] clonazePAM 2019-0 Yes 2mg Take 2 mg Un j[place] 2 mg tablet 2-04 by mouth ity of 16:07: as needed. [address] citalopram 2019-0 Yes 20mg Take 20 mg U nivers 20 mg 2-04 by mouth ity of tablet 16:07: daily. [address] clonazePAM 2019-0 Yes 2mg Take 2 mg Un [place] 2 mg tablet 2-04 by mouth ity of 16:07: as needed. [address] citalopram 2019-0 Yes 20mg Take 20 mg U nivers 20 mg 2-04 by mouth ity of tablet 16:07: daily. [address] clonazePAM 2019-0 Yes 2mg Take 2 mg Un [place] 2 mg tablet 2-04 by mouth ity of 16:07: as needed. [address] citalopram 2019-0 Yes 20mg Take 20 mg U nivers 20 mg 2-04 by mouth ity of tablet 16:07: daily. [address] clonazePAM 2019-0 Yes 2mg Take 2 mg Un [place] 2 mg tablet 2-04 by mouth ity of 16:07: as needed. [address] AMITRIPTYL 2017-06 Yes [id number] TAKE 1 Univers [place] 25 mg 2-27 4102 TABLET BY ity of tablet 00:00: MOUTH [place] 00 EVERYDAY Medical AT BEDTIME [place] AMITRIPTYL 2017-06 Yes [id number] TAKE 1 Univers [place] 25 mg 2-27 4102 TABLET BY ity of tablet 00:00: MOUTH [place] EVERYDAY Medical AT [facility] AMITRIPTYL 2017-06 Yes [id number] TAKE 1 Univers [place] 25 mg 2-27 4102 TABLET BY ity of tablet 00:00: MOUTH [place] [facility]-06 Yes [id number] TAKE 1 [facility] [place] 25 mg 2-27 4102 TABLET BY ity of tablet 00:00: [facility] Yes [id number] TAKE 1 [facility] [place] 25 mg 2-27 4102 TABLET BY ity of tablet 00:00: [facility]DAY [facility] Yes [id number] TAKE 1 [facility] [place] 25 mg 2-27 4102 TABLET BY ity of tablet 00:00: MOUTH [place] EVERYDAY Medical [facility] Yes [id number] TAKE 1 [facility] [place] 25 mg 2-27 4102 TABLET BY ity of tablet 00:00: [facility] EVERYDAY Medical [facility] Yes [id number] TAKE 1 [facility] [place] 25 mg 2-27 4102 TABLET BY ity of tablet 00:00: [facility] EVERYDAY Medical AT [facility] AMITRIPTYL 2017-06 Yes [id number] TAKE 1 [facility] [place] 25 mg 2-27 4102 TABLET BY ity of tablet 00:00: MOUTH [place] EVERYDAY Medical AT [facility] AMITRIPTYL 2017-06 Yes [id number] TAKE 1 [facility] [place] 25 mg 2-27 4102 TABLET BY ity of tablet 00:00: [facility] EVERYDAY Medical AT [facility] AMITRIPTYL 2017-06 Yes [id number] TAKE 1 [facility] [place] 25 mg 2-27 4102 TABLET BY ity of tablet 00:00: MOUTH [place] EVERYDAY Medical AT BEDTIME [place] AMITRIPTYL 2017-06 Yes [id number] TAKE 1 [facility] [place] 25 mg 2-27 4102 TABLET BY ity of tablet 00:00: MOUTH [place] 00 [facility]DAY [facility] Yes [id number] TAKE 1 [facility] [place] 25 mg 2-27 4102 TABLET BY ity of tablet 00:00: MOUTH [place] 00 EVERYDAY Medical [facility] Yes [id number] TAKE 1 [facility] [place] 25 mg 2-27 4102 TABLET BY ity of tablet 00:00: MOUTH [place] EVERYDAY Medical [facility] Yes [id number] TAKE 1 [facility] [place] 25 mg 2-27 4102 TABLET BY ity of tablet 00:00: MOUTH [place] [facility] [id number] TAKE 1 [facility] NE 25 mg 2-27 4102 TABLET BY ity of tablet 00:00: MOUTH [place] EVERYDAY [facility] Yes [id number] TAKE 1 [facility] NE 25 mg 2-27 4102 TABLET BY ity of tablet 00:00: MOUTH [place] EVERYDAY [facility] Yes [id number] TAKE 1 [facility] [place] 25 mg 2-27 4102 TABLET BY ity of tablet 00:00: MOUTH [place] EVERYDAY Medical [facility] Yes [id number] TAKE 1 [facility] [place] 25 mg 2-27 4102 TABLET BY ity of tablet 00:00: MOUTH [place] EVERYDAY [facility] Yes [id number] TAKE 1 [facility] [place] 25 mg 2-27 4102 TABLET BY ity of tablet 00:00: MOUTH [place] EVERYDAY Medical [facility] Yes [id number] TAKE 1 [facility] [place] 25 mg 2-27 4102 TABLET BY ity of tablet 00:00: MOUTH [place] [facility] Yes [id number] TAKE 1 [facility] [place] 25 mg 2-27 4102 TABLET BY ity of tablet 00:00: MOUTH [place] EVERYDAY [facility] Yes [id number] TAKE 1 [facility] [place] 25 mg 2-27 4102 TABLET BY ity of tablet 00:00: MOUTH [place] EVERYDAY Medical AT [facility] Yes [id number] TAKE 1 [facility] [place] 25 mg 2-27 4102 TABLET BY ity of tablet 00:00: MOUTH 00 EVERYDAY Medical AT BEDTIME Branch AMITRIPTYLI 2017-06 Yes [id number] TAKE 1 [facility] [place] 25 mg 2-27 4102 TABLET BY ity of tablet 00:00: MOUTH 00 EVERYDAY Medical AT BEDTIME Branch AMITRIPTYLI 2017-06 Yes [id number] TAKE 1 [facility] [place] 25 mg 2-27 4102 TABLET BY ity of tablet 00:00: MOUTH 00 EVERYDAY Medical AT BEDTIME Branch AMITRIPTYLI 2017-06 2020- No [id number] TAKE 1 [facility] NE 25 mg 2-27 12-10 4102 TABLET BY ity o f tablet 00:00: 00:00 MOUTH [place] 00 :00 EVERYDAY Medical AT BEDTIME Branch AMITRIPTYLI 2017-06 2020- No [id number] TAKE 1 Univers NE 25 mg 2-27 12-10 4102 TABLET BY ity o f tablet 00:00: 00:00 MOUTH [place] 00 :00 EVERYDAY Medical AT BEDTIME Branch divalproex 2017-06 Yes 250mg Take 250 Un [place] 250 mg EC 2-05 mg by ity of tablet 00:00: mouth (two) Medical times Branch daily. divalproex 2017-06 Yes 250mg Take 250 [place] 250 mg EC 2-05 mg by ity of tablet 00:00: mouth (two) Medical times Branch daily. divalproex 2017-06 Yes 250mg Take 250 Un [place] 250 mg EC 2-05 mg by ity of tablet 00:00: mouth (two) Medical times Branch daily. divalproex 2017-06 Yes 250mg Take 250 Un [place] 250 mg EC 2-05 mg by ity of tablet 00:00: mouth (two) Medical times Branch daily. divalproex 2017-06 Yes 250mg Take 250 Un [place] 250 mg EC 2-05 mg by ity of tablet 00:00: mouth (two) Medical times Branch daily. divalproex 2017-06 Yes 250mg Take 250 Un [place] 250 mg EC 2-05 mg by ity of tablet 00:00: mouth (two) Medical times Branch daily. divalproex 2017-06 Yes 250mg Take 250 Un o[place] 250 mg EC 2-05 mg by ity of tablet 00:00: mouth (two) Medical times Branch daily. divalproex 2017- Yes 250mg Take 250 Un [place] 250 mg EC 2-05 mg by ity of tablet 00:00: mouth (two) Medical times Branch daily. divalproex 2017-06 Yes 250mg Take 250 Un [place] 250 mg EC 2-05 mg by ity of tablet 00:00: mouth (two) Medical times Branch daily. divalproex 2017-06 Yes 250mg Take 250 Un [place] 250 mg EC 2-05 mg by ity of tablet 00:00: mouth (two) Medical times Branch daily. divalproex 2017- Yes 250mg Take 250 Un [place] 250 mg EC 2-05 mg by ity of tablet 00:00: mouth (two) Medical times Branch daily. divalproex 2017-06 Yes 250mg Take 250 Un [place] 250 mg EC 2-05 mg by ity of tablet 00:00: mouth (two) Medical times Branch daily. divalproex 2017-06 Yes 250mg Take 250 Un [place] 250 mg EC 2-05 mg by ity of tablet 00:00: mouth (two) Medical times Branch daily. divalproex 2017- Yes 250mg Take 250 Un [place] 250 mg EC 2-05 mg by ity of tablet 00:00: mouth (two) Medical times Branch daily. divalproex 2017- Yes 250mg Take 250 Un [place] 250 mg EC 2-05 mg by ity of tablet 00:00: mouth (two) Medical times Branch daily. divalproex 2017- Yes 250mg Take 250 Un [place] 250 mg EC 2-05 mg by ity of tablet 00:00: mouth (two) Medical times Branch daily. divalproex 2017- Yes 250mg Take 250 Un [place] 250 mg EC 2-05 mg by ity of tablet 00:00: mouth (two) Medical times Branch daily. divalproex 2017- Yes 250mg Take 250 Un [place] 250 mg EC 2-05 mg by ity of tablet 00:00: mouth (two) Medical times Branch daily. divalproex 2017-06 Yes 250mg Take 250 Un [place] 250 mg EC 2-05 mg by ity of tablet 00:00: mouth 2 (two) Medical times Branch daily. divalproex 2017-06 Yes 250mg Take 250 Un [place] 250 mg EC 2-05 mg by ity of tablet 00:00: mouth 2 (two) Medical times Branch daily. divalproex 2017-06 Yes 250mg Take 250 Un [place] 250 mg EC 2-05 mg by ity of tablet 00:00: mouth 2 (two) Medical times Branch daily. divalproex 2017-06 Yes 250mg Take 250 Un [place] 250 mg EC 2-05 mg by ity of tablet 00:00: mouth 2 (two) Medical times Branch daily. divalproex 2017-06 Yes 250mg Take 250 Un [place] 250 mg EC 2-05 mg by ity of tablet 00:00: mouth (two) Medical times Branch daily. divalproex 2017-06 Yes 250mg Take 250 Un [place] 250 mg EC 2-05 mg by ity of tablet 00:00: mouth (two) Medical times Branch daily. divalproex 2017-06 Yes 250mg Take 250 Un [place] 250 mg EC 2-05 mg by ity of tablet 00:00: mouth (two) Medical times Branch daily. divalproex 2017-06 Yes 250mg Take 250 Un [place] 250 mg EC 2-05 mg by ity of tablet 00:00: mouth (two) Medical times Branch daily. divalproex 2017-06- No 250mg Take 250 U nivers 250 mg EC 2-05 12-10 mg by ity of tablet 00:00: 00:00 mouth 2 [place] 00 :00 (two) Medical times Branch daily. divalproex 2017-06 2020- No 250mg Take 250 U nivers 250 mg EC 2-05 12-10 mg by ity of tablet 00:00: 00:00 mouth 2 [place] 00 :00 (two) Medical times Branch daily. ESTRING 2 Yes 2mg Insert 2 Univ ers mg (7.5 mcg 4-19 mg into ity o f /24 hour) 00:00: vagina [place] vaginal 00 every 3 Medical insert (three) Branch months. ESTRING 2 2017- Yes 2mg Insert 2 Univ ers mg (7.5 mcg 4-19 mg into ity o f /24 hour) 00:00: vagina [place] vaginal 00 every 3 Medical insert (three) Branch months. ESTRING 2 2017-0 Yes 2mg Insert 2 Univ ers mg (7.5 mcg 4-19 mg into ity o f /24 hour) 00:00: vagina [place] vaginal 00 every 3 Medical insert (three) Branch months. ESTRING 2 2017- Yes 2mg Insert 2 Univ ers mg (7.5 mcg 4-19 mg into ity o f /24 hour) 00:00: vagina [place] vaginal 00 every 3 Medical insert (three) Branch months. ESTRING 2 2017- Yes 2mg Insert 2 Univ ers mg (7.5 mcg 4-19 mg into ity o f /24 hour) 00:00: vagina [place] vaginal 00 every 3 Medical insert (three) Branch months. ESTRING 2 Yes 2mg Insert 2 Univ ers mg (7.5 mcg 4-19 mg into ity o f /24 hour) 00:00: vagina [place] vaginal 00 every 3 Medical insert (three) Branch months. ESTRING 2 2017- Yes 2mg Insert 2 Univ ers mg (7.5 mcg 4-19 mg into ity o f /24 hour) 00:00: vagina [place] vaginal 00 every 3 Medical insert (three) Branch months. ESTRING 2 Yes 2mg Insert 2 Univ ers mg (7.5 mcg 4-19 mg into ity o f /24 hour) 00:00: vagina [place] vaginal 00 every 3 Medical insert (three) Branch months. ESTRING 2 2017- Yes 2mg Insert 2 Univ ers mg (7.5 mcg 4-19 mg into ity o f /24 hour) 00:00: vagina [place] vaginal 00 every 3 Medical insert (three) Branch months. ESTRING 2 2017-0 Yes 2mg Insert 2 Univ ers mg (7.5 mcg 4-19 mg into ity o f /24 hour) 00:00: vagina [place] vaginal 00 every 3 Medical insert (three) Branch months. ESTRING 2 2017-0 Yes 2mg Insert 2 Univ ers mg (7.5 mcg 4-19 mg into ity o f /24 hour) 00:00: vagina [place] vaginal 00 every 3 Medical insert (three) Branch months. ESTRING 2 2017- Yes 2mg Insert 2 Univ ers mg (7.5 mcg 4-19 mg into ity o f /24 hour) 00:00: vagina [place] vaginal 00 every 3 Medical insert (three) Branch months. ESTRING 2 2017-0 Yes 2mg Insert 2 Univ ers mg (7.5 mcg 4-19 mg into ity o f /24 hour) 00:00: vagina [place] vaginal 00 every 3 Medical insert (three) Branch months. ESTRING 2 2017- Yes 2mg Insert 2 Univ ers mg (7.5 mcg 4-19 mg into ity o f /24 hour) 00:00: vagina [place] vaginal 00 every 3 Medical insert (three) Branch months. ESTRING 2 2017- Yes 2mg Insert 2 Univ ers mg (7.5 mcg 4-19 mg into ity o f /24 hour) 00:00: vagina [place] vaginal 00 every 3 Medical insert (three) Branch months. ESTRING 2 Yes 2mg Insert 2 Univ ers mg (7.5 mcg 4-19 mg into ity o f /24 hour) 00:00: vagina [place] vaginal 00 every 3 Medical insert (three) Branch months. ESTRING 2 2017- Yes 2mg Insert 2 Univ ers mg (7.5 mcg 4-19 mg into ity o f /24 hour) 00:00: vagina [place] vaginal 00 every 3 Medical insert (three) Branch months. ESTRING 2 Yes 2mg Insert 2 Univ ers mg (7.5 mcg 4-19 mg into ity o f /24 hour) 00:00: vagina [place] vaginal 00 every 3 Medical insert (three) Branch months. ESTRING 2 2017- Yes 2mg Insert 2 Univ ers mg (7.5 mcg 4-19 mg into ity o f /24 hour) 00:00: vagina [place] vaginal 00 every 3 Medical insert (three) Branch months. ESTRING 2 2017-0 Yes 2mg Insert 2 Univ ers mg (7.5 mcg 4-19 mg into ity o f /24 hour) 00:00: vagina [place] vaginal 00 every 3 Medical insert (three) Branch months. ESTRING 2 2017-0 Yes 2mg Insert 2 Univ ers mg (7.5 mcg 4-19 mg into ity o f /24 hour) 00:00: vagina [place] vaginal 00 every 3 Medical insert (three) Branch months. ESTRING 2 2017-0 Yes 2mg Insert 2 Univ ers mg (7.5 mcg 4-19 mg into ity o f /24 hour) 00:00: vagina [place] vaginal 00 every 3 Medical insert (three) Branch months. ESTRING 2 2017-0 Yes 2mg Insert 2 Univ ers mg (7.5 mcg 4-19 mg into ity o f /24 hour) 00:00: vagina [place] vaginal 00 every 3 Medical insert (three) Branch months. ESTRING 2 2017-0 Yes 2mg Insert 2 Univ ers mg (7.5 mcg 4-19 mg into ity o f /24 hour) 00:00: vagina [place] vaginal 00 every 3 Medical insert (three) Branch months. ESTRING 2 2017- Yes 2mg Insert 2 Univ ers mg (7.5 mcg 4-19 mg into ity o f /24 hour) 00:00: vagina [place] vaginal 00 every 3 Medical insert (three) Branch months. ESTRING 2 Yes 2mg Insert 2 Univ ers mg (7.5 mcg 4-19 mg into ity o f /24 hour) 00:00: vagina [place] vaginal 00 every 3 Medical insert (three) Branch months. ESTRING 2 2020- No 2mg Insert 2 Uni vers mg (7.5 mcg 4-19 12-10 mg into ity of /24 hour) 00:00: 00:00 vagina [place] vaginal 00 :00 every 3 Medical insert (three) Branch months. ESTRING 2 2020- No 2mg Insert 2 Uni vers mg (7.5 mcg 4-19 12-10 mg into ity of /24 hour) 00:00: 00:00 vagina [place] vaginal 00 :00 every 3 Medical insert (three) Branch months. Vital Signs Vital Name Observation Time Observation Value Comments Source Systolic blood 2021-01-22 01:17:00 123 mm[Hg] Univer sity of [facility] Diastolic blood 2021-01-22 01:17:00 82 mm[Hg] Unive rsity [facility] Heart rate 2021-01-22 01:17:00 87 /min [facility] Respiratory rate 2021-01-22 01:17:00 18 /min Univ ersity [facility] [place] [facility] Oxygen saturation in 2021-01-22 01:17:00 98 /min University of Arterial blood by [facility] Pulse oximetry Branch Body temperature 2021-01-22 00:00:00 37.39 [place] Univ ersity [facility] [place] [facility] Body weight 2021-01-22 00:00:00 97.523 kg [facility] [place] [facility] BMI 2021-01-22 00:00:00 39.32 kg/m2 [facility] [place] [facility] Body temperature 2020-11-06 15:15:00 36.11 [place] Univ ersity [facility] [place] [facility] Oxygen saturation in 2020-11-06 15:15:00 96 /min University of Arterial blood by [facility] Pulse oximetry Branch Systolic blood 2020-11-06 13:39:00 125 mm[Hg] Univer sity of pressure [place] [facility] Diastolic blood 2020-11-06 13:39:00 80 mm[Hg] Unive rsity of pressure [place] [facility] Heart rate 2020-11-06 13:39:00 79 /min [facility]i [facility] [place] [facility] Respiratory rate 2020-11-06 13:39:00 18 /min Univ ersity [facility] [place] [facility] Body height 2020-11-06 13:39:00 157.5 cm [facility] [place] [facility] Body weight 2020-11-06 13:39:00 97.523 kg [facility] [place] [facility] BMI 2020-11-06 13:39:00 39.32 kg/m2 [facility] [place] [facility] Body temperature 2020-11-06 15:15:00 36.11 [place] [facility] ers[facility] [place] [facility] Oxygen saturation in 2020-11-06 15:15:00 96 /min University of Arterial blood by [facility] Pulse oximetry Branch Systolic blood 2020-11-06 13:39:00 125 mm[Hg] Univer sity of pressure [place] [facility] Diastolic blood 2020-11-06 13:39:00 80 mm[Hg] Unive rsity of pressure [place] [facility] Heart rate 2020-11-06 13:39:00 79 /min [facility]i [facility] [place] [facility] Respiratory rate 2020-11-06 13:39:00 18 /min Univ ersity of [place] [facility] Body height 2020-11-06 13:39:00 157.5 cm [facility] [place] [facility] Body weight 2020-11-06 13:39:00 97.523 kg [facility] [place] [facility] BMI 2020-11-06 13:39:00 39.32 kg/m2 [facility] [place] [facility] Systolic blood 2020-10-15 19:32:00 136 mm[Hg] Univer sity of [facility] [place] [facility] Diastolic blood 2020-10-15 19:32:00 83 mm[Hg] Unive rsity of pressure [place] [facility] Heart rate 2020-10-15 19:32:00 90 /min [facility] [place] [facility] Respiratory rate 2020-10-15 19:32:00 16 /min Univ ersity [facility] [place] [facility] Body height 2020-10-15 19:32:00 160 cm [facility] [place] [facility] Body weight 2020-10-15 19:32:00 95.255 kg [facility] [place] [facility] BMI 2020-10-15 19:32:00 37.20 kg/m2 [facility] [place] [facility] Oxygen saturation in 2020-10-15 19:32:00 100 /min University of Arterial blood by [place] [employer] [facility] Pulse oximetry Branch Systolic blood 2020-10-15 19:32:00 136 mm[Hg] Univer sity of [facility] [place] [facility] Diastolic blood 2020-10-15 19:32:00 83 mm[Hg] Unive rsity of [facility] [place] [facility] Heart rate 2020-10-15 19:32:00 90 /min [facility] [place] [facility] Respiratory rate 2020-10-15 19:32:00 16 /min Univ ersity [facility] [place] [facility] Body height 2020-10-15 19:32:00 160 cm [facility] [place] [facility] Body weight 2020-10-15 19:32:00 95.255 kg [facility] [place] [facility] BMI 2020-10-15 19:32:00 37.20 kg/m2 [facility] [place] [facility] Oxygen saturation in 2020-10-15 19:32:00 100 /min University of Arterial blood by [place] [employer] [facility]itope Pulse oximetry Branch Systolic blood 2020-10-09 18:39:00 130 mm[Hg] Univer sity of [facility] [place] [facility] Diastolic blood 2020-10-09 18:39:00 90 mm[Hg] Unive rsity of pressure [place] [facility] Heart rate 2020-10-09 18:39:00 96 /min [facility] [place] [facility] Body height 2020-10-09 18:33:00 157.5 cm [facility] [place] [facility] Body weight 2020-10-09 18:33:00 95.255 kg [facility] [place] [facility] BMI 2020-10-09 18:33:00 38.41 kg/m2 Universi ty of [facility] Systolic blood 2020-10-01 13:38:00 118 mm[Hg] Univer sity of pressure [facility] Branch Diastolic blood 2020-10-01 13:38:00 85 mm[Hg] Unive rsity of pressure [facility] Heart rate 2020-10-01 13:38:00 80 /min Universi ty of [facility] Body height 2020-10-01 13:38:00 157.5 cm Universi ty of [facility] Body weight 2020-10-01 13:38:00 95.255 kg [facility]i ty of [facility] BMI 2020-10-01 13:38:00 38.41 kg/m2 [facility]i [facility] of [facility] Systolic blood 2020-06-11 19:33:00 125 mm[Hg] Univer sity of pressure [facility] Branch Diastolic blood 2020-06-11 19:33:00 90 mm[Hg] Unive rsity of pressure [facility] Heart rate 2020-06-11 19:32:00 100 /min Universi ty of [facility] Respiratory rate 2020-06-11 19:32:00 16 /min Univ ersity of [facility] Body height 2020-06-11 19:32:00 157.5 cm [facility]i [facility] of [facility] Body weight 2020-06-11 19:32:00 99.338 kg [facility] [place] [facility] BMI 2020-06-11 19:32:00 40.06 kg/m2 [facility] Oxygen saturation in 2020-06-11 19:32:00 97 /min University Arterial blood by [facility] Pulse oximetry Branch Systolic blood 2020-05-23 19:42:00 128 mm[Hg] Univer sity of pressure [facility] Diastolic blood 2020-05-23 19:42:00 82 mm[Hg] Unive rsity of pressure [facility] Heart rate 2020-05-23 19:42:00 112 /min [facility] [place] [facility] Body temperature 2020-05-23 19:42:00 36.78 [place] [facility] ers[facility] [place] [facility] Respiratory rate 2020-05-23 19:42:00 16 /min Univ ersity [facility] [place] [facility] Body height 2020-05-23 19:42:00 157.5 cm [facility] [place] [facility] Body weight 2020-05-23 19:42:00 98.975 kg [facility] [place] [facility] BMI 2020-05-23 19:42:00 39.91 kg/m2 [facility] [place] [facility] Oxygen saturation in 2020-05-23 19:42:00 96 /min University of Arterial blood by [place] [employer] temitope Pulse oximetry Branch Systolic blood 2020-04-20 20:29:50 117 mm[Hg] [facility] Diastolic blood 2020-04-20 20:29:50 88 mm[Hg] [facility] Heart rate 2020-04-20 20:29:50 88 /min [facility] Respiratory rate 2020-04-20 20:29:50 18 /min [facility] Oxygen saturation in 2020-04-20 20:29:50 99 /min University of Arterial blood by [facility] temitope Pulse oximetry Branch Body temperature 2020-04-20 17:31:00 36.89 Cuca [facility] Body weight 2020-04-20 17:31:00 97.501 kg [facility] BMI 2020-04-20 17:31:00 39.31 kg/m2 [facility] Systolic blood 2020-04-13 08:00:00 138 mm[Hg] [facility] Diastolic blood 2020-04-13 08:00:00 90 mm[Hg] [facility] Heart rate 2020-04-13 08:00:00 90 /min [facility] Respiratory rate 2020-04-13 08:00:00 18 /min [facility] Oxygen saturation in 2020-04-13 08:00:00 100 /min University of Arterial blood by [facility]itope Pulse oximetry Branch Body temperature 2020-04-13 06:00:00 36.78 Cuca [facility] Body weight 2020-04-13 06:00:00 97.501 kg [facility] BMI 2020-04-13 06:00:00 39.31 kg/m2 [facility] Systolic blood 2020-03-26 16:05:00 125 mm[Hg] [facility] Diastolic blood 2020-03-26 16:05:00 91 mm[Hg] [facility] Heart rate 2020-03-26 16:05:00 102 /min [facility] Respiratory rate 2020-03-26 16:05:00 20 /min [facility] Body height 2020-03-26 16:05:00 157.5 cm [facility] Body weight 2020-03-26 16:05:00 97.523 kg [facility] BMI 2020-03-26 16:05:00 39.32 kg/m2 [facility] Oxygen saturation in 2020-03-26 16:05:00 99 /min University of Arterial blood by [facility] Pulse oximetry Branch Systolic blood 2020-03-19 14:47:00 121 mm[Hg] [facility] Diastolic blood 2020-03-19 14:47:00 84 mm[Hg] [facility] Heart rate 2020-03-19 14:47:00 96 /min [facility] Respiratory rate 2020-03-19 14:47:00 20 /min [facility] Oxygen saturation in 2020-03-19 14:47:00 99 /min University of Arterial blood by [facility] Pulse oximetry Branch Body temperature 2020-03-19 14:17:00 37 Cuca [facility] Body height 2020-03-19 12:38:00 157.5 cm [facility] Body weight 2020-03-19 12:38:00 98.4 kg [facility] BMI 2020-03-19 12:38:00 39.68 kg/m2 [facility] Systolic blood 2020-01-09 13:44:00 129 mm[Hg] [facility] Diastolic blood 2020-01-09 13:44:00 84 mm[Hg] [facility] Heart rate 2020-01-09 13:44:00 95 /min [facility] Body temperature 2020-01-09 13:44:00 36.22 Cuca [facility] Body height 2020-01-09 13:44:00 157.5 cm [facility] Body weight 2020-01-09 13:44:00 99.338 kg [facility] BMI 2020-01-09 13:44:00 40.06 kg/m2 [facility] Systolic blood 2019-10-24 03:00:00 129 mm[Hg] [facility] Diastolic blood 2019-10-24 03:00:00 88 mm[Hg] [facility] Heart rate 2019-10-24 03:00:00 94 /min [facility] Respiratory rate 2019-10-24 03:00:00 18 /min [facility] Oxygen saturation in 2019-10-24 03:00:00 96 /min [facility] Arterial blood by [facility] Pulse oximetry Branch Body weight 2019-10-24 00:55:00 98.431 kg [facility] BMI 2019-10-24 00:55:00 39.69 kg/m2 [facility] Body temperature 2019-10-24 00:47:00 37 Cuca [facility] Body height 2019-10-24 00:47:00 157.5 cm [facility] Systolic blood 2019-07-22 17:35:00 105 mm[Hg] [facility] Diastolic blood 2019-07-22 17:35:00 70 mm[Hg] [facility] Heart rate 2019-07-22 17:35:00 83 /min [facility] Respiratory rate 2019-07-22 17:35:00 18 /min [facility] Oxygen saturation in 2019-07-22 17:35:00 97 /min [facility] Arterial blood by [facility] Pulse oximetry Branch Body temperature 2019-07-22 15:01:00 37.44 Cuca [facility] Body weight 2019-07-22 15:01:00 81.647 kg [facility] BMI 2019-07-22 15:01:00 32.92 kg/m2 [facility] Procedures Procedure Date / Time Performing Clinician Source Performed XR CHEST 1 VW 2021-01-22 00:25:45 Amparo Johnson [facility] COVID-19 (ID NOW RAPID 2021-01-22 00:12:00 Amparo Jhonson [facility] TESTING) [facility] CONSENT/REFUSAL FOR 2021-01-21 23:46:52 Doctor [facility] DIAGNOSIS AND TREATMENT [place] [facility] FL TIME OR (NON-REPORTABLE) 2020-11-06 15:07:24 Gladys Mir [facility] FL TIME OR (NON-REPORTABLE) 2020-11-06 15:07:24 Gladys Mir [facility] RADIOFREQUENCY 2020-11-06 14:35:00 Luis Yusuf [facility] THERMOCOAGULATION [facility] DAY SURGERY - VICTORY [place] 2020-11-06 05:01:00 Doctor Samara heredia [facility] Name [facility] ASSIGNMENT OF BENEFITS 2020-11-01 18:42:57 Doctor Sanabria [facility] Name [facility] MR KNEE LEFT WO CONTRAST 2020-10-08 19:22:18 Margareth Azul [facility] FL TIME OR (NON-REPORTABLE) 2020-08-27 19:01:30 Kentrell Yusuf [facility] PATIENT QUESTIONNAIRE 2020-06-11 06:01:00 Doctor Sanabria [facility] Name [facility] VITAMIN B12, LEVEL 2020-05-23 20:23:00 Curtis Childs [facility] C-REACTIVE PROTEIN 2020-05-23 20:23:00 Curtis Childs [facility] THYROID STIMULATING HORMONE 2020-05-23 20:23:00 Curtis Childs [facility] COMP. METABOLIC PANEL 2020-05-23 20:23:00 Curtis Childs [facility] ([id number]) [facility] CBC WITH DIFF 2020-05-23 20:23:00 Curtis Childs [facility] GLYCOSYLATED HEMOGLOBIN 2020-05-23 20:23:00 Curtis Childs [facility] (A1C) [facility] POCT URINALYSIS 2020-05-23 20:19:00 Curtis Childs [facility] MR LUMBAR SPINE WO CONTRAST 2020-04-24 14:33:27 Mona King Yo wtak [facility] XR CHEST 2 VW 2020-04-20 18:29:52 Rodney [facility] POCT RAPID STREP SCREEN FOR 2020-04-20 18:13:00 Rodney, [facility] GROUP A Medical Branch LIPASE 2020-04-20 18:00:00 Rodney, [facility] TROPONIN I 2020-04-20 18:00:00 Rodney, [facility] HEPATIC FUNCTION PANEL 2020-04-20 18:00:00 Rodney, ZanDon [facility] ([id number]) (ALB,T.PRO,BILI Medical Branch T,BU/BC,ALT,AST,ALK PHOS) BASIC METABOLIC PANEL (NA, 2020-04-20 18:00:00 [facility] K, CL, CO2, GLUCOSE, BUN, Medica l Branch CREATININE, CA) CBC WITH DIFF 2020-04-20 18:00:00 Rodney [facility] D-DIMER 2020-04-20 18:00:00 Rodney, [facility] GALV ONLY - INFLUENZA A B 2020-04-20 18:00:00 [facility]bin [facility] RSV PCR [facility] Branch N-TERMINAL PRO-BNP 2020-04-20 18:00:00 Rodney [facility] EXTRA TUBE ORANGE 2020-04-20 18:00:00 [facility] COVID-19 (ID NOW RAPID 2020-04-20 18:00:00 Marbin Wilson [facility] TESTING) Medical Branch CT APPLY FOREARM 2020-04-13 07:50:42 Edgar Marinelli [facility] S[place],[facility] Medical [place] XR ELBOW >3 VW RIGHT 2020-04-13 06:49:20 Edgar Marinelli [facility] XR FOREARM 2 VW RIGHT 2020-04-13 06:49:20 Edgar Marinelli [facility] XR HAND 3+ VW RIGHT 2020-04-13 06:49:20 Edgar Marinelli [facility] XR WRIST 3+ VW RIGHT 2020-04-13 06:49:20 Edgar Marinelli [facility] COLONOSCOPY (ENDO) 2020-03-19 13:22:33 Merary Sheridan [facility] ASSIGNMENT OF BENEFITS 2020-03-19 12:23:05 Doctor Unassigned, [facility] [place] [facility] [place] ASSIGNMENT OF BENEFITS 2020-01-09 13:28:20 Doctor Unassigned, Un [facility] [place] [facility] [place] CT ABDOMEN PELVIS W 2019-10-24 02:10:11 Harjinder Ceron [facility] CORONAVIRUS COVID-19 2019-10-24 01:38:00 Harjinder Ceron [facility] TESTING [facility] LACTIC ACID WHOLE BLOOD 2019-10-24 01:11:00 Harjinder Ceron [facility] LIPASE 2019-10-24 01:05:00 Aravind [facility] COMP. METABOLIC PANEL 2019-10-24 01:05:00 Aravind Harjinder [facility] ([id number]) [facility] CBC WITH DIFFERENTIAL 2019-10-24 01:05:00 Aravind [facility] URINALYSIS 2019-10-24 01:05:00 Ceron, [facility] ASSIGNMENT OF BENEFITS 2019-10-24 00:39:37 Doctor Unassigned, [facility] [place] [facility] [place] CONSENT/REFUSAL FOR 2019-10-24 00:39:08 Doctor Unassigned, [facility] DIAGNOSIS AND TREATMENT [place] [facility] [place] CT ABDOMEN PELVIS WO 2019-07-22 15:47:59 Tarun Austin [facility] CONTRAST Medical [place] BASIC METABOLIC PANEL (NA, 2019-07-22 15:13:00 Tarun Austin [facility] K, CL, CO2, GLUCOSE, BUN, Medica l Branch CREATININE, CA) CBC WITH DIFFERENTIAL 2019-07-22 15:13:00 Tarun Austin Univer sity [facility] URINALYSIS 2019-07-22 15:13:00 Tarun Austin [facility] Plan of Care Planned Activity Planned Date Details Comments Source Procedure 2021-06-18 CONSENT/REFUSAL FOR [facility] 00:55:17 DIAGNOSIS AND Medical Branch TREATMENT Encounters Start End Encounter Admission Attending Care Care Encounter Source Date/Time Date/Time Type Type Clinicians Facility Department ID 2021-04-14 Emergency [facility] [id number] [facility] 14:[facility] 2021-04-13 Outpatient DOROVERTO [facility] ANS [id number] Univers 17:07:00 LUIS [facility] 2021-04-12 Emergency [facility] [id number] Univers 03:52:41 ity [facility] 2021-04-12 Emergency [facility] [id number] Univers 02:13:24 [facility] 2021-04-11 Outpatient R CHANDRAKANT [facility] GIE [id number] Univers 19:28:29 JORGE LUIS [facility] 2021-04-11 Outpatient R TERRY PRAJAPATI [facility] GIE [id number] Univers 10:23:40 TERRY PRAJAPATI i ty of [facility] 2021-06-17 2021-06-17 Emergency X [facility] ERT [id number] Univers 19:27:00 19:28:00 ity [facility] 2021-06-17 2021-06-17 Emergency [facility] [id number] Univers 19:27:00 19:28:00 [place] [id number] i ty [facility] [id number] [facility] [id number] [facility] 084 Branch 2021-01-21 2021-01-21 [facility] 1.2.840.114 [id number] Univers 18:57:00 20:18:00 Amparo Decker [id number] i ty of [place] [id number] [facility] [phone] [facility] 084 Branch 2020-12-19 2020-12-19 Outpatient R MADELIN [facility] [id number] Univers 15:00:00 15:00:00 LUIS [id number] [facility] 2020-12-19 2020-12-19 Outpatient R MADELIN [facility] [id number] Univers 15:00:00 15:00:00 [facility] 2020-11-18 2020-11-18 Telephone [facility] [id number] Univers 00:00:00 00:00:00 [facility] MULTISPEC [id number] ity of IALTY [id number] [facility] [phone] [facility] AND [address] DIABETES CLINIC 2020-11-06 2020-11-06 [facility] 1.2.840.114 [id number] Univers 08:14:00 11:43:00 Encounter [facility] [id number] ity of [place] [id number] [facility] [phone] [address] ([facility]) 2020-11-06 2020-11-06 Surgery [facility] 1.2.840.114 [id number] Univers 09:45:00 10:29:00 [facility] SPECIALTY [id number] ity of CARE [id number] [facility] AT [phone] Az dical VICTORY 020 Branch [place] 2020-11-06 2020-11-06 Anesthesia Gege Zepeda [facility] 1.2.840. 114 [id number] Univers 09:40:00 10:15:00 Event Madelin Francis SPECIALTY [id number] ity of CARE [id number] [facility] AT [phone] Az dical VICTORY 020 Branch L[place]ES 2020-11-06 2020-11-06 Orders Doctor ALONSO 1.2.840.114 [id number] Univers 00:00:00 00:00:00 Only Unassigned, AMINA [id number] ity of [place] [facility] 4.2.7.2.686 Rolando as [id number] [address] 2020-11-01 2020-11-01 Laboratory Only, [facility] Test [facility] 1.2.840. 114 [id number] Univers 13:43:54 13:58:54 Only Luis Yusuf 350.1.13.1 0 ity of [place] 4.2.7.2.686 [place] [facility] [phone] [address] 2020-11-01 2020-11-01 Laboratory Only, [facility] 1.2.840.114 [id number] 13:43:54 13:58:54 Only Test [place] [id number] [place] 4.2.7.2.686 [place] [id number] [facility] 2020-11-01 2020-11-01 Outpatient [facility] [id number] Univers 13:45:00 13:45:00 [id number] ity [facility] 2020-11-01 2020-11-01 Outpatient Henry YUSUF [facility] [id number] Univers 13:45:00 13:45:00 LUIS ity [facility] 2020-11-01 2020-11-01 Orders Doctor ALONSO 1.2.840.114 [id number] 00:00:00 00:00:00 Only Unassigned, AMINA 350.1.13.10 [place] [facility] 4.2.7.2.686 [id number] 2020-11-01 2020-11-01 Orders Doctor ALONSO 1.2.840.114 [id number] Univers 00:00:00 00:00:00 Only Unassigned, AMINA [id number] ity of [place] [facility] 4.2.7.2.686 [place] as [phone] [address] 2020-10-15 2020-10-15 Office Madelin [facility] 1.2.840.114 [id number] 13:59:10 15:16:37 Visit [facility] [id number] IALTY 4.2.7.2.686 CENTER [phone] [facility] 2020-10-15 2020-10-15 Office [facility] 1.2.840.114 [id number] Univers 13:59:10 15:16:37 Visit [facility] [id number] ity of IALTY 4.2.7.2.686 [facility] [phone] [facility] [place] 011 Branch DIABETES CLINIC 2020-10-15 2020-10-15 Outpatient Henry YUSUF [facility] [id number] [id number] Univers 14:30:00 14:30:00 LUIS [id number] [facility] 2020-10-15 2020-10-15 Outpatient Henry YUSUF [facility] [id number] Univers 14:30:00 14:30:00 LUIS [facility] 2020-10-09 2020-10-09 Office Jorge [facility] 1.2.840.114 [id number] Univers 13:21:08 14:31:22 [facility] [id number] it y of Surgical 4.2.7.2.686 [place] [phone] Az dical es 198 [facility] 2020-10-09 2020-10-09 Outpatient Henry AZUL [facility] [id number] Univers 13:30:00 13:30:00 MARGARETH [id number] [facility] 2020-10-09 2020-10-09 Outpatient Henry AZUL [facility] [id number] Univers 13:30:00 13:30:00 MARGARETH [facility] 2020-10-08 2020-10-08 [facility] Jorge [facility] 1.2.840.114 [id number] Univers 13:32:08 23:59:00 Encounter Margareth Rincon [place] [id number] ity of [place] 4.2.7.2.686 [place] [id number] [facility] 8[address] [place] 2020-10-08 2020-10-08 Outpatient R [facility] [id number] Univers 14:00:00 14:00:00 MARGARETH [id number] ity [facility] 2020-10-08 2020-10-08 Outpatient [facility] [id number] Univers 00:00:00 00:00:00 MARGARETH ity [facility] 2020-10-02 2020-10-02 Telephone [facility] [id number] Univers 00:00:00 00:00:00 [facility] [id number] it y of Surgical 4.2.7.2.686 [place] as Specialti [phone] Az dical es 198 [facility] 2020-10-01 2020-10-01 [facility] 1.2.840.114 [id number] Univers 09:15:23 23:59:00 Encounter [facility] Health [id number] ity of Surgical 4.2.7.2.686 [place] as Specialti [phone] Az dical es 809 [facility] 2020-10-01 2020-10-01 Outpatient [facility] [id number] Univers 08:45:00 08:45:00 MARGARETH [id number] ity [facility] 2020-10-01 2020-10-01 Outpatient Henry [facility] [id number] Univers 08:45:00 08:45:00 MARGARETH ity [facility] 2020-10-01 2020-10-01 Office [facility] 1.2.840.114 [id number] Univers 08:25:42 08:40:42 Visit [facility] Health [id number] it y of Surgical 4.2.7.2.686 [place] as Specialti [phone] Az dical es 198 [facility] 2020-08-28 2020-08-28 Telephone [facility] [id number] Univers 00:00:00 00:00:00 Rob RODRIGUEZPEC [id number] ity of I[place] 4.2.7.2.686 [place] [id number] [facility] [place] [address] [place] DIAB[facility]ES [facility]IN[facility] 2020-08-27 2020-08-27 [facility] 1.2.840.114 [id number] Univers 13:22:00 23:59:00 [facility] [id number] ity of IALTY 4.2.7.2.686 [facility] [phone] [facility] 8[address] [place] DIAB[facility] 2020-08-27 2020-08-27 Outpatient R JEAN PAULM, [facility] [id number] Univers 13:00:00 13:00:00 [facility] [id number] [facility] 2020-08-27 2020-08-27 Outpatient R MADELIN, [facility] [id number] Univers 13:00:00 13:00:00 [facility] 2020-08-02 2020-08-02 Outpatient R MADELIN, [facility] [id number] Univers 11:00:00 11:00:00 [facility] [id number] [facility] 2020-08-02 2020-08-02 Outpatient R MADELIN, [facility] [id number] Univers 11:00:00 11:00:00 [facility] 2020-08-01 2020-08-01 Outpatient R MADELIN, [facility] [id number] Univers 13:30:00 13:30:00 [facility] [id number] [facility] 2020-08-01 2020-08-01 Outpatient R JEAN PAULM, [facility] [id number] Univers 13:30:00 13:30:00 [facility] 2020-07-31 2020-07-31 [facility] 1.2.840.114 [id number] Univers 00:00:00 00:00:00 [facility] [id number] ity of IALTY 4.2.7.2.686 [facility] [phone] [facility] AND [place] [address] [place] DIAB[facility]ES [facility]INIC 2020-07-17 2020-07-17 Outpatient R JEAN PAULElodia [facility] [id number] Univers 09:30:00 09:30:00 LUIS [id number] ity [facility] 2020-07-17 2020-07-17 Outpatient R LEONARDKIMBERLY, [facility] [id number] Univers 09:30:00 09:30:00 [facility] ity [facility] 2020-06-19 2020-06-19 Telephone [facility] 1.2.840.114 [id number] Univers 00:00:00 00:00:00 [facility] [id number] ity [place] [id number] [address] Office Building 2020-06-17 2020-06-17 Telephone [facility] 1.2.840.114 [id number] Univers 00:00:00 00:00:00 [facility] [id number] ity [place] [phone] [address] Office Building 2020-06-11 2020-06-11 Office apollohilaryelodiaZ[facility] 1.2.840.114 [id number] Univers 13:15:59 14:31:23 Visit [facility] 350.1.13.10 ity of [place].2.7.2.686 [place] [id number] [address] DIABETES CLINIC 2020-06-11 2020-06-11 Outpatient R JEAN PAULElodia [facility] [id number] [id number] Univers 13:30:00 13:30:00 LUIS [id number] ity [facility] 2020-06-11 2020-06-11 Outpatient R JEAN PAULElodia [facility] [id number] Univers 13:30:00 13:30:00 [facility] ity [facility] 2020-06-11 2020-06-11 Telephone [facility] 1.2.840.114 [id number] Univers 00:00:00 00:00:00 Luismadalyn RODRIGUEZPEC 350.1.13.10 ity of [place] 4.2.7.2.686 [place] [id number] [facility] AND [place] 011 Branch DIABETES CLINIC 2020-06-11 2020-06-11 Orders Doctor CELESTE 1.2.840.114 [id number] Univers 00:00:00 00:00:00 Only Unassigned, AMINA 350.1.13.10 ity of [place] [facility] 4.2.7.2.686 Rolando as [phone] [facility] 009 Branch 2020-05-24 2020-05-24 [facility] 1.2.840.114 [id number] Univers 00:00:00 00:00:00 Management Curtis AVERY [id number] ity of MEDICINE 4.2.7.2.686 [place] as CLINIC - [phone] [address] 2020-05-23 2020-05-23 Office [facility] 1.2.840.114 [id number] Univers 13:34:24 14:54:48 Visit Curtis AVERY 350.1.13.10 it y of MEDICINE 4.2.7.2.686 [place] as CLINIC - [phone] [address] 2020-05-23 2020-05-23 Outpatient [facility] [id number] Univers 13:20:00 13:20:00 CURTIS ity [facility] 2020-05-23 2020-05-23 Outpatient R [facility] [id number] Univers 13:20:00 13:20:00 CURTIS ity [facility] 2020-05-03 2020-05-03 Telephone [facility] 1.2.840.114 [id number] Univers 00:00:00 00:00:00 Luis SUBRAMANIAN 350.1.13.10 ity of [place]2.7.2.686 [place] [id number] [facility] [place] 011 Branch DIABETES CLINIC 2020-04-30 2020-04-30 [facility] [id number] Univers 14:30:00 14:30:00 [id number] ity of [facility] 2020-04-30 2020-04-30 Outpatient R AYAZ [facility] [id number] Univers 14:30:00 14:30:00 MONA ity of [facility] 2020-04-30 2020-04-30 Telemedici Rima Knowles [facility] 1.2. 840.114 [id number] Univers 08:25:38 08:40:38 ne Visit Ayaz Mona [facility] 350.1.13 .10 [place] [id number] [address] Office Building 2020-04-25 2020-04-25 Telephone [facility] 1.2.840.114 [id number] Univers 00:00:00 00:00:00 Mona [facility] 350.1.13.10 ity [place] [id number] [address] Office Building 2020-04-24 2020-04-24 Hospital AyazZUNI [facility] [id number] Univers 07:39:20 23:59:00 Encounter Mona Garciabrendon Ferris 350.1.13.10 [place] [phone] [facility] [address] 2020-04-24 2020-04-24 [facility] [id number] Univers 08:00:00 08:00:00 [id number] ity of [facility] 2020-04-24 2020-04-24 Outpatient [facility] [id number] Univers 00:00:00 00:00:00 MONA ity of [facility] 2020-04-20 2020-04-20 Emergency Rodney, TRAUMA [id number] Univers 11:31:00 14:30:00 Marbin ELBERT 350.1.13.10 [place] [id number] [facility] [address] 2020-04-13 2020-04-13 Emergency Sony Baird L TRAUMA 1.2.840 .114 [id number] Univers 01:02:00 03:08:00 Edgar Marinelli CENTER 350.1.13.10 [place] [phone] [facility] [address] 2020-04-10 2020-04-10 Telephone [facility] 1.2.840.114 [id number] Univers 00:00:00 00:00:00 Jorge Luis Crooks HEALTH 350.1.13.10 i ty of [place] [phone] [facility] [address] 2020-04-05 2020-04-05 Telephone [facility] 1.2.840.114 [id number] Univers 00:00:00 00:00:00 Mona [facility] 350.1.13.10 [place] [phone] [address] Office Building 2020-03-26 2020-03-26 Outpatient [facility] [id number] Q-20 Univers 10:45:00 10:45:00 [id number] ity of [facility] 2020-03-26 2020-03-26 Outpatient [facility] [id number] Univers 10:45:00 10:45:00 MONA ity of [facility] 2020-03-26 2020-03-26 Office [facility] 1.2.840.114 [id number] Univers 10:18:59 10:33:59 Visit Mona [facility] 350.1.13.10 [place] [phone] [address] Office Building 2020-03-19 2020-03-19 [facility], [facility] 1.2.840.114 [id number] Univers 07:23:00 09:55:00 Encounter Jorge Luis ROSALINA 350.1.13.10 ity of [place] 4.2.7.2.686 [place] [phone] [facility] [address] 2020-03-19 2020-03-19 Orders Doctor CELESTE 1.2.840.114 [id number] Univers 00:00:00 00:00:00 Only Unassigned, AMINA 350.1.13.10 ity of [place] [facility] 4.2.7.2.686 [place] [phone] [facility] [address] 2020-02-20 2020-02-20 Telephone JAKE Alonso 1.2.840.114 [id number] Univers 00:00:00 00:00:00 Seun [facility] 350.1.13.10 i ty of [facility] 4.2.7.2.686 [place] [phone] [facility] [address] 2020-02-12 2020-02-12 Outpatient Raju_P MMG MMG [id number] [place] 01:26:00 01:26:00 0831 [facility] 2020-01-19 2020-01-19 Laboratory Only, Adc Test [facility] 1.2.840. 114 [id number] Univers 09:36:54 09:51:54 Only Terry Prajapati 350.1.13.10 [facility] [place].7.2.686 [place] [facility] [phone] [facility] [address] 2020-01-19 2020-01-19 Outpatient R [facility] [id number] Univers 09:30:00 09:30:00 ity of [facility] 2020-01-19 2020-01-19 Outpatient R [facility] [id number] Univers 09:30:00 09:30:00 ity of [facility] 2020-01-19 2020-01-19 Letter Percy ALONSO 1.2.840.114 [id number] Univers 00:00:00 00:00:00 (Out) , Melita HUYNH 350.1.13.[address]7.2.686 [place] [phone] [facility] [address] 2020-01-19 2020-01-19 Telephone Percy CELESTE 1.2.840.114 [id number] Univers 00:00:00 00:00:00 , Melita HUYNH 350.1.13.10 ity [place] [address].7.2.686 [place] [phone] [facility] [address] 2020-01-09 2020-01-09 Office Senu Alonso [facility] 1. 2.840.114 [id number] Univers 08:28:34 10:25:02 Visit Jay Jay Jimenez [facility] 350.1.13. 10 ity of CL[place] [phone] [address] 2020-01-09 2020-01-09 Outpatient R [facility] [id number] -[id number] Univers 09:00:00 09:00:00 [id number] ity of [facility] 2020-01-09 2020-01-09 Outpatient [facility] [id number] Univers 09:00:00 09:00:00 JAY JAY ity [facility] 2020-01-09 2020-01-09 Orders Doctor CELESTE 1.2.840.114 [id number] Univers 00:00:00 00:00:00 Only Unassigned, AMINA 350.1.13.10 ity of [place] [facility] 4.2.7.2.686 [place] [phone] [address] 2019-10-23 2019-10-23 Emergency [facility] 1.2.840.114 [id number] Univers 19:50:07 22:16:00 Harjinder Decker 350.1.13.10 i ty [place] [phone] [address] 2019-10-23 2019-10-23 Emergency X [facility] ERT [id number] Univers 19:50:07 22:16:00 HARJINDER ahuja [facility] 2019-10-23 2019-10-23 Orders Doctor ALONSO 1.2.840.114 [id number] Univers 00:00:00 00:00:00 Only Unassigned, AMINA 350.1.13.10 ity of [place] [facility] 4.2.7.2.686 [place] [id number] [address] 2019-07-22 2019-07-22 [facility] 1.2.103.215 [id number] Univers 08:49:24 12:07:00 Tarun Decker 350.1.13.10 i ty [place] [phone] [address] 2019-07-22 2019-07-22 Emergency [facility] [id number] Univers 08:49:24 12:07:00 TARUN ahuja [facility] Results Test Description Test Time Test Comments Results Result Comments Source COVID-19 (ID NOW RAPID TESTING) 2021-01-22 00:32:52 Test Item Value Reference Range Interpretation Comme nts SARS-CoV-2 Rapid ID NOW (test code Not Detected Not Detected = 57421-4) FREDI (test code = FREDI) ID NOW COVID-19 Assay is an isothermal nucleic acid amplification test intended for the qualitative detection of nucleic acid from SARS-CoV-2 viral RNA in nasopharyngeal (SAUSAGE GRINDER) specimens. It is used under Emergency Use Authorization (EUA) by FDA. The limit of detection (LOD) of the assay is 125 Genome Equivalents/mL. A positive result is indicative of the presence of SARS-CoV-2 RNA. ?Clinical correlation with patient history and other diagnostic information is necessary to determine patient infection status. A negative (Not Detected) result does not preclude SARS-CoV-2 infection. In patients with clinical symptoms and other tests that are consistent with SARS-CoV-2 infection, negative results should be treated as presumptive negative and a new specimen should be tested with alternative PCR molecular test. Invalid: Please collect a new specimen for repeat patient testing if clinically indicated. Lab Interpretation (test code = Normal 83762-3) [facility]2020-11-06 15:08:11 These images do not require a Radiology diagnostic report.[facility]2020-11-06 15:08:11These images do not require a Radiology diagnostic report.[facility] LEFT WO [id number] 19:31:47HISTORY: Trauma. Rule out meniscal/ligamentous injury. TECHNIQUE: MR imaging of the left knee was done in multiple projectionsusing1.5T MR unit and standard protocol. FINDINGS: BONE AND JOINT: Small knee joint effusion noted with thickened lateralpatellar synovial plica. No fluid distended popliteal bursa or Azul's cystdetected. Hypertrophy of the tibial tuberosity noted. Focal grade III/grade IV chondromalacia detected in the dorsolateral tibialcondyle with subchondral degenerative changes by mild marrow edema. Thereis calcification in the degenerative cartilage in the lateral tibialcondyle. Hypoplastic medial patellar/trochlear facets noted. Minimal, grade III,chondromalacia is seen in the lateral patellofemoral joint. Patella is highriding laterally tracking (patella maribel). MENISCI: Blunted apex noted in the posterior horn of the lateral meniscus,consistent with degeneration/fibrillation. No tear detected in the medialmeniscus or in the lateral meniscus. LIGAMENTS AND TENDONS: Patellar tendon, quadriceps complex, cruciateligaments and collateral ligaments are intact. The lower portion of t hepatellar tendon is thickened due to an 8 mm lipoma in the deep portion ofthe tendon. CONCLUSIONS:1. 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 No torn meniscus are torn ligaments. [facility], Radiant Results Inft User - 10/08/2020 2:32 PM CDTHISTORY: Trauma. Rule outmeniscal/ligamentous injury.TECHNIQUE: MR imaging of the left knee was done in multiple projectionsusing1.5T MR unit and standard protocol.FINDINGS: BONE AND JOINT: Small knee joint effusion noted withthickened lateralpatellar synovial plica. No fluid distended popliteal bursa or Azul's cystdetected. Hypertrophy of the tibial tuberosity noted.Focal grade III/grade IV chondromalacia detected in the dorsolateral tibialcondyle with subchondral degenerative changes by mild marrow edema. Thereis calcification in the degenerative cartilage in the lateral tibialcondyle.Hypoplastic medial patellar/trochlear facets noted. Minimal, grade III,chondromalacia is seen in the lateral patellofemoral joint. Patella is highriding laterally tracking (patella maribel).MENISCI: Blunted apex noted in the posterior hornof the lateral meniscus,consistent with degeneration/fibrillation. No tear detected in the medialmeniscus or in the lateral meniscus.LIGAMENTS AND TENDONS: Patellar tendon, quadriceps complex, cruciateligaments and collateral ligaments are intact. The lower portion of thepatellar tendon is thickened due to an 8 mm lipoma in the deep portion ofthe tendon.CONCLUSIONS: 1.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 is low or moderate pretest probability of PE or DVT. D-Dimer values are expressed in initial fibrinogen equivalent units (FEU)" The assay results should be used with other information, including the clinical context, in forming a diagnosis. Lab Interpretation Normal (test code = 43123-4) [facility] with [id number] 18:27:00 Test Item Value Reference Range Interpretation Comments WBC (test code = See_Comment [Automated 2886-2) message] The sy stem which generated this result transmitted reference range : 4.30 - 11.10 10*3/?L. The reference range was not used to interpret this result as normal/abnormal . RBC (test code = See_Comment [Automated 569-8) message] The sy stem which generated this result transmitted reference range : 3.93 - 5.25 10*6/?L. The reference range was not used to interpret this result as normal/abnormal . HGB (test code = 14.0 g/dL 11.6-15 718-7) HCT (test code = 41.9 % 35.7-45.2 4544-3) MCV (test code = 99.5 fL 80.6-95.5 H 787-2) MCH (test code = 33.3 pg 25.9-32.8 H 785-6) MCHC (test code = 33.4 g/dL 31.6-35.1 786-4) RDW-SD (test code = 46.8 fL 39-49.9 75511-4) RDW-CV (test code = 12.8 % 12-15.5 788-0) PLT (test code = See_Comment [Automated 037-3) message] The sy stem which generated this result transmitted reference range : 166 - 358 10*3/ ?L. The reference r armando was not used to interpret this result as normal/abnormal . MPV (test code = 10.8 fL 9.5-12.9 27886-5) NRBC/100 WBC (test See_Comment [Automat ed code = 2953897248) message] The system which generated this result transmitted reference range : 0.0 - 10.0 /100 WBCs. The refer ence range was not u sed to interpret th is result as normal/abnormal . NRBC x10^3 (test code <0.01 See_Comment [Auto mated = 6567164835) message] The s ystem which generated this result transmitted reference range : 10*3/?L. The reference range was not used to interpret this result as normal/abnormal . GRAN MAT (NEUT) % 47.3 % (test code = 770-8) IMM GRAN % (test code 0.30 % = 2910696628) LYMPH % (test code = 39.4 % 736-9) MONO % (test code = 10.6 % 5905-5) EOS % (test code = 2.0 % 713-8) BASO % (test code = 0.4 % 706-2) GRAN MAT x10^3(ANC) 3.31 10*3/uL 1.88-7.09 (test code = 0007238087) IMM GRAN x10^3 (test <0.03 0-0.06 code = 6236351554) LYMPH x10^3 (test code 2.76 10*3/uL 1.32-3.29 = 731-0) MONO x10^3 (test code 0.74 10*3/uL 0.33-0.92 = 742-7) EOS x10^3 (test code = 0.14 10*3/uL 0.03-0.39 711-2) BASO x10^3 (test code 0.03 10*3/uL 0.01-0.07 = 704-7) Lab Interpretation Abnormal (test code = 15812-9) [facility] HospitalPOIN RAPID STREP SCREEN FOR GROUP [id number] 18:13:00 Test Item Value Reference Range Interpretation Comments POCT GP A STREP (test code = negative Negative - Negative 22689-5) Lab Interpretation (test code = Normal 58621-5) [facility] HospitalSplint [id number] 07:50:42RumEdgar holden MD ? ? 04/13/2020 ?2:50 AMSplint ApplicationPerformed by: Edgar Marinelli MDAuthorized by: Edgar Marinelli MD Consent: ?Consent obtained: ?Verbal ?Consent given by: ?Patient ?Risks discussed: ?Numbness and pain ?Alternatives discussed: ?No treatmentPre-procedure details: ?Sensation: ?NormalProcedure details: ?Laterality: ?Right ?Location: ?Wrist ?Wrist: ?R wrist ?Splint type: ?Thumb spica ?Supplies: ?Flbdi-NcnlnDtkt-xthslhluo details: ?Pain: ?Improved ?Sensation: ?Normal ?Patient tolerance of procedure: ?Tolerated well, no immediate complicationsUnWhite Rock Medical CenterCT ABDOMEN PELVIS W [id number] 03:05:24 1. A short segment of the sigmoid colon is circumferentially thickened.This may represent a focal contraction; however, a follow-up colonoscopy isrecommended to exclude an underlying mass. 2. Diverticu losis without diverticulitis. 3. Left adrenal adenoma, unchanged. Preliminary Report Dictated by Resident: Cherelle Culver MD., have reviewed this study and agree with the abovereport.EXAM: CT ABDOMEN AND PELVIS WITH CONTRAST HISTORY: Abdominal pain. COMPARISON: 07/22/2019 TECHNIQUE AND FINDINGS: Contiguous axial imaging from the level of the lungbases through the pubic symphysiswas performed after the uncomplicatedadministration of intravenous Omnipaque contrast. Coronal and sagittalreconstructions were obtained. FINDINGS: LOWER THORAX: Calcified granuloma in the left lower lobe measures 1.7 cm,unchanged. LIVER: Round lesion in segment 7 (2:16) with peripheral nodular enhancementmeasures 1.7 cm and is consistent with a hemangioma. The remainingscattered subcentimeter hypodensities are too small to characterize. Normalcontour. GALLBLADDER AND BILIARY TREE: No biliary ductal dilation. Cholecystectomy. SPLEEN: No splenomegaly. PANCREAS: No ductal dilation or masses. ADRENAL GLANDS: Left adrenal adenoma measures 3.9 cm, unchanged. KIDNEYS: No hydronephrosis, stones, or masses. Left renal cyst measures 4.1cm. PERITONEUM AND RETROPERITONEUM: No free air or fluid. LYMPH NODES:No lymphadenopathy. GI TRACT: A short segment of the sigmoid colon is circumferentiallythickened(2:132). Cecal diverticulosis without diverticulitis. PELVIS/BLADDER: Unremarkable. VESSELS: Unremarkable. BONES AND SOFT TISSUES: No suspicious lytic or sclerotic bony lesions. [facility], Radiant Results Inft User - 10/23/2019 10:06 PM CDTEXAM: CT ABDOMEN AND PELVIS WITH CONTRASTHISTORY: Abdominal pain.COMPARISON: 07/22/2019TECHNIQUE AND FINDINGS: Contiguous axial imaging from the level of the lungbases throughthe pubic symphysis was performed after the uncomplicatedadministration of intravenous Omnipaque contrast. Coronal and sagittalreconstructions were obtained.FINDINGS:LOWER THORAX: Calcified granuloma in the left lower lobe measures 1.7 cm,unchanged.LIVER: Round lesion in segment 7 (2:16) with peripheral nodular enhancementmeasures 1.7 cm and is consistent with a hemangioma. The remainingscattered subcentimeter hypodensities are too small to characterize. Normalcontour.GALLBLADDER AND BILIARY TREE: No biliary ductal dilation. Cholecystectomy.SPLEEN: No splenomegaly.PANCREAS: No ductal dilation or masses.ADRENAL GLANDS: Left adrenal adenoma measures 3.9 cm, unchanged.KIDNEYS: No hydronephrosis, stones, or masses. Left renal cyst measures 4.1cm.PERITONEUM AND RETROPERITONEUM: No free air or fluid.LYMPH NODES: No lymphadenopathy.GI TRACT: A short segment of the sigmoid colon is circumferentiallythickened(2:132). Cecal diverticulosis without diverticulitis.PELVIS/BLADDER: Unremarkable.VESSELS: Unremarkable.BONES AND SOFT TISSUES: No suspicious lytic or sclerotic bony lesions.IMPRESSION1. A short seg ment of the sigmoid colon is circumferentially thickened.This may represent a focal contraction; however, a follow-up colonoscopy isrecommended to exclude an underlying mass.2. Diverticulosis without diverticulitis.3. Left adrenal adenoma, unchanged.Preliminary Report Dictated by Resident: Supa Terrazas, Cherelle Higgins MD., have reviewed this study and agree with the abovereport.[facility] HospitalCORONAVIRUS COVID-19 TESTING 2019-10-24 02:15:00 Test Item Value Reference Range Interpretation Comments SARS-CoV-2 (test code = Not Detected Not Detected 45455-5) FREDI (test code = FREDI) ID NOW COVID-19 Assay is an isothermal nucleic acid amplification test intended for the qualitative detection of nucleic acid from SARS-CoV-2 viral RNA in nasopharyngeal (SAUSAGE GRINDER) specimens. It is used under Emergency Use Authorization (EUA) by FDA. The limit of detection (LOD) of the assay is 125 Genome Equivalents/mL. A positive result is indicative of the presence of SARS-CoV-2 RNA. ?Clinical correlation with patient history and other diagnostic information is necessary to determine patient infection status. A negative (Not Detected) result does not preclude SARS-CoV-2 infection. Clinical correlation with patient history and other diagnostic information should be used in patient management decisions. Invalid: Please collect a new specimen for repeat patient testing if clinically indicated. Lab Interpretation Normal (test code = 87362-4) [facility]. METABOLIC PANEL (24789)2019-10-24 01:32:00 Test Item Value Reference Range Interpretation Comments NA (test code = 141 mmol/L 135-145 1522910787) K (test code = 4.2 mmol/L 3.5-5 5754780723) CL (test code = 111 mmol/L 98-108 H 0372195195) CO2 TOTAL (test code = 22 mmol/L 23-31 L 7746340787) AGAP (test code = 2-16 8746738140) BUN (test code = 11 mg/dL 7-23 4054792233) GLUCOSE (test code = 102 mg/dL 70-110 6950052646) CREATININE (test code = 0.57 mg/dL 0.5-1.04 8371545157) TOTAL BILI (test code = 0.5 mg/dL 0.1-1.6 9009506128) CALCIUM (test code = 9.3 mg/dL 8.6-10.6 3338203177) T PROTEIN (test code = 7.6 g/dL 6.3-8.2 5572504389) ALBUMIN (test code = 4.4 g/dL 3.5-5 0597035975) ALK PHOS (test code = 67 U/L 34-122 1349620212) ALTv (test code = 24 U/L 5-35 1742-6) AST(SGOT) (test code = 35 U/L 13-40 1442001466) eGFR Calculation mL/min/1.73m2 (Non-) (test code = 5631249683) eGFR Calculation mL/min/1.73m2 () (test code = 8863567752) FREDI (test code = FREDI) Association of Glomerular Filtration Rate (GFR) and Staging of Kidney Disease* + --+ --+ ------+| GFR (mL/min/1.73 m2) ?| With Kidney Damage ?| ?Without Kidney Damage+ --------+ --------+ +| ?>90 ?| ?Stage one ?| ? Normal ?+ ---+ ---+ -------+| ?60-89 ?| ?Stage two ?| ? Decreased GFR ? + --+ --+ ------+| ?30-59 ?| ?Stage three ?| ? Stage three ? + --+ --+ ------+| ?15-29 ?| ?Stage four ? | ? Stage four ?+ ---+ ---+ -------+| ?<15 (or dialysis) ? ?| ?Stage five ? | ? Stage five ?+ ---+ ---+ -------+ *Each stage assumes the associated GFR level has been in effect for at least three months. ?Stages 1 to 5, with or without kidney disease, indicate chronic kidney disease. Notes: Determination of stages one and two (with eGFR >59mL/min/1.73 m2) requires estimation of kidney damage for at least three months as defined by structural or functional abnormalities of the kidney, manifested by either:Pathological abnormalities or Markers of kidney damage (including abnormalities in the composition of the blood or urine or abnormalities in imaging tests). Lab Interpretation Abnormal (test code = 42736-3) [facility] HospitalLIP[facility]2020-[facility] 01:31:00 Test Item Value Reference Range Interpretation Comments LIPASE (test code = 7149939199) 70 U/L 0-220 Lab Interpretation (test code = Normal 37136-7) [facility] HospitalURINALYSIS2020-05-12 01:25:00 Test Item Value Reference Range Interpretation Comments APPEARANCE (test code = Hazy Clear A 0922649673) COLOR (test code = Yellow Yellow 1687122480) PH (test code = 4.8-8.0 6928250404) SP GRAVITY (test code = 1.003-1.030 9103431565) GLU U QUAL (test code = Normal Normal 8806302888) BLOOD (test code = Negative Negative 0188815299) KETONES (test code = 5 mg/dL Negative A 5594124283) PROTEIN (test code = Negative Negative 2887-8) UROBILIN (test code = Normal Normal 4843977819) BILIRUBIN (test code = Negative Negative 3904016239) NITRITE (test code = Negative Negative 2098691546) LEUK MARTI (test code = Negative Negative 1773376283) RBC/HPF (test code = See_Comment [Autom ated message] 9036229289) The system [employer] generated this result transmitted ref erence range: 0 - 3 HP F. The reference range was not used to int erpret this result as normal/abnormal . WBC/HPF (test code = See_Comment [Autom ated message] 9347682955) The system [employer] generated this result transmitted ref erence range: 0 - 5 HP F. The reference range was not used to int erpret this result as normal/abnormal . BACTERIA (test code = Few Negative A 8083244152) MUCOUS (test code = Marked Negative LPF A 5652972588) SQ EPITH (test code = HPF 7397402182) Lab Interpretation (test Abnormal code = 15176-8) [facility] WITH [id number] 01:23:00 Test Item Value Reference Range Interpretation Comments WBC (test code = See_Comment [Automated 6690-2) message] The sy stem which generated this result transmitted reference range : 4.30 - 11.10 10*3/?L. The reference range was not used to interpret this result as normal/abnormal . RBC (test code = See_Comment [Automated 629-8) message] The sy stem which generated this result transmitted reference range : 3.93 - 5.25 10*6/?L. The reference range was not used to interpret this result as normal/abnormal . HGB (test code = 13.9 g/dL 11.6-15 718-7) HCT (test code = 40.9 % 35.7-45.2 4544-3) MCV (test code = 97.6 fL 80.6-95.5 H 787-2) MCH (test code = 33.2 pg 25.9-32.8 H 785-6) MCHC (test code = 34.0 g/dL 31.6-35.1 786-4) RDW-SD (test code = 48.3 fL 39-49.9 94256-8) RDW-CV (test code = 13.3 % 12-15.5 788-0) PLT (test code = See_Comment [Automated 777-3) message] The sy stem which generated this result transmitted reference range : 166 - 358 10*3/ ?L. The reference r armando was not used to interpret this result as normal/abnormal . MPV (test code = 9.9 fL 9.5-12.9 97793-4) NRBC/100 WBC (test See_Comment [Automat ed code = 4247734605) message] The system which generated this result transmitted reference range : 0.0 - 10.0 /100 WBCs. The refer ence range was not u sed to interpret th is result as normal/abnormal . NRBC x10^3 (test code <0.01 See_Comment [Auto mated = 9479215001) message] The s ystem which generated this result transmitted reference range : 10*3/?L. The reference range was not used to interpret this result as normal/abnormal . GRAN MAT (NEUT) % 52.6 % (test code = 770-8) IMM GRAN % (test code 0.20 % = 4335724998) LYMPH % (test code = 35.3 % 736-9) MONO % (test code = 9.6 % 5905-5) EOS % (test code = 1.9 % 713-8) BASO % (test code = 0.4 % 706-2) GRAN MAT x10^3(ANC) 4.80 10*3/uL 1.88-7.09 (test code = 5992130673) IMM GRAN x10^3 (test <0.03 0-0.06 code = 7932371181) LYMPH x10^3 (test code 3.22 10*3/uL 1.32-3.29 = 731-0) MONO x10^3 (test code 0.88 10*3/uL 0.33-0.92 = 742-7) EOS x10^3 (test code = 0.17 10*3/uL 0.03-0.39 711-2) BASO x10^3 (test code 0.04 10*3/uL 0.01-0.07 = 704-7) Lab Interpretation Abnormal (test code = 33630-4) [facility] [id number] 01:16:00 Test Item Value Reference Range Interpretation Comments LACTIC ACID (test code = 1.33 mmol/L 0.3-2.6 7998226636) [facility] [id number] 17:11:351. Findings appear most compatible with cecal diverticulitis. Noperforation or abscess is identified. Mildly prominent ileocolic lymphnodes are likely reactive in nature.2. There are several low-density lesions within the liver which are poorlycharacterized on this noncontrast study. These lesions do not definitelyhave characteristics of hepatic cysts. Nonemergent contrast enhanced MRI ofthe abdomen is recommended for further evaluation and to exclude hepaticmetastatic disease.3. A left adrenal adenoma is present.4. A left renal cyst is present. RL: [id number] Electronically signed by Gabbi Diallo 07/22/2019 11:11 AMORDERING PHYSICIAN: TARUN AUSTIN ABDOMEN AND PELVIS CT WITHOUT INTRAVENOUS CONTRAST. DATE: ?07/22/2019 CLINICAL INDICATIONS: ?Right-sided abdominal pain. TECHNIQUE: ?Axial computed tomographic images of the abdomen and pelviswere obtained without intravenous contrast. CT scan was performed accordingto ALARA (As Low as Reasonably Achievable). COMPARISON: None. Abdomen findings: Evaluation of the lung bases demonstrate a calcifiedgranuloma in the left lower lobe. The cardiac apex isunremarkable. There are multiple low density lesions within the liver which are poorlycharacterized on this study. The largest lesion is identified in theposterior hepatic dome on image 27 series 2 measuring up to 1.7 cm ingreatest dimension. Nonemergent contrast enhanced MRI of the abdomen isrecommended for further characterization. The spleen, pancreas, right adrenal gland right kidney demonstrate noabnormality. A left adrenal adenoma is present. A large left renal cyst isalso identified. There ismarked inflammation within the medial cecum as visualized of series 2 which appears to be located adjacent to a cecaldiverticulum. The findings are most compatible with cecal diverticulitis.Noperforation or abscess is identified. The terminal ileum has anunremarkable appearance. Appendectomyappears to have been performed. The stomach and small bowel demonstrate no evidence for obstruction o rinflammation. The distal colon is unremarkable. No adenopathy or free fluid are identified in the abdomen. No acute osseousabnormality is demonstrated. Pelvis findings: The small bowel and colon are normal caliber. The urinarybladder demonstrates no abnormality. Hysterectomy has been performed. Noadenopathy or free fluid are identified in the pelvis. No acute osseousabnormality is demonstrated. [facility], Radiant Results Inft User - 07/22/2019 11:13 AM CSTORDERING PHYSICIAN: TARUN CORNEJO AND PELVIS CT WITHOUT INTRAVENOUS CONTRAST.DATE: 07/22/2019CLINICAL INDICATIONS: Right-sided abdominal pain.TECHNIQUE: Axial computed tomographic images of the abdomen and pelviswere obtained without intravenous contrast. CT scan was performed accordingto ALARA (As Low as Reasonably Achievable).COMPARISON: None.Abdomen findings: Evaluation of the lung bases demonstrate a calcifiedgranuloma in the left lowerlobe. The cardiac apex is unremarkable.There are multiple low density lesions within the liver whichare poorlycharacterized on this study. The largest lesion is identified in theposterior hepatic domeon image 27 series 2 measuring up to 1.7 cm ingreatest dimension. Nonemergent contrast enhanced MRI of the abdomen isrecommended for further characterization.The spleen, pancreas, right adrenal gland right kidney demonstrate noabnormality. A left adrenal adenoma is present. A large left renal cyst isalso identified.There is marked inflammation within the medial cecum as visualized of series 2 which appears to be located adjacent to a cecaldiverticulum. The findings are most compatible with cecal diverticulitis.No perforation or abscess is identified. The terminal ileum has anunremarkable ap pearance. Appendectomy appears to have been performed.The stomach and small bowel demonstrate no evidence for obstruction orinflammation. The distal colon is unremarkable.No adenopathy or free fluid are identified in the abdomen. No acute osseousabnormality is demonstrated.Pelvis findings: The small bowel and colon are normal caliber. The urinarybladder demonstrates no abnormality. Hysterectomy has been performed. Noadenopathy or free fluid are identified in the pelvis. No acute osseousabnormality is demonstrated.IMPRESSION1. Findings appear most compatible with cecal diverticulitis. Noperforation or abscess is identified. Mildly prominent ileocolic lymphnodes are likely reactive in nature.2. There are several low-density lesions within the liver which are poorlycharacterized on this noncontrast study. These lesions do not definitelyhave characteristics of hepatic cysts. Nonemergent contrast enhanced MRI ofthe abdomen is recommended for further evaluation and to exclude hepaticmetastatic disease.3. A left adrenal adenoma is present.4. A left renal cyst is present.RL: [id number] [facility] METABOLIC PANEL (NA, K, CL, CO2, GLUCOSE, BUN, CREATININE, CA)2019-07-22 15:41:00 Test Item Value Reference Range Interpretation Comments NA (test code = 136 mmol/L 135-145 2359402496) K (test code = 3.9 mmol/L 3.5-5 8324788739) CL (test code = 106 mmol/L 98-108 9940151684) CO2 TOTAL (test code = 22 mmol/L 23-31 L 4109700673) AGAP (test code = 2-16 0872428902) BUN (test code = 11 mg/dL 7-23 3553587575) GLUCOSE (test code = 109 mg/dL 70-110 0361441349) CREATININE (test code = 0.62 mg/dL 0.5-1.04 3295525284) CALCIUM (test code = 9.0 mg/dL 8.6-10.6 1164058834) eGFR Calculation mL/min/1.73m2 (Non-) (test code = 8463133901) eGFR Calculation mL/min/1.73m2 () (test code = 2412252703) FREDI (test code = FREDI) Association of Glomerular Filtration Rate (GFR) and Staging of Kidney Disease* + --+ --+ ------+| GFR (mL/min/1.73 m2) ?| With Kidney Damage ?| ?Without Kidney Damage+ --------+ --------+ +| ?>90 ?| ?Stage one ?| ? Normal ?+ ---+ ---+ -------+| ?60-89 ?| ?Stage two ?| ? Decreased GFR ? + --+ --+ ------+| ?30-59 ?| ?Stage three ?| ? Stage three ? + --+ --+ ------+| ?15-29 ?| ?Stage four ? | ? Stage four ?+ ---+ ---+ -------+| ?<15 (or dialysis) ? ?| ?Stage five ? | ? Stage five ?+ ---+ ---+ -------+ *Each stage assumes the associated GFR level has been in effect for at least three months. ?Stages 1 to 5, with or without kidney disease, indicate chronic kidney disease. Notes: Determination of stages one and two (with eGFR >59mL/min/1.73 m2) requires estimation of kidney damage for at least three months as defined by structural or functional abnormalities of the kidney, manifested by either:Pathological abnormalities or Markers of kidney damage (including abnormalities in the composition of the blood or urine or abnormalities in imaging tests). Lab Interpretation Abnormal (test code = 33343-5) [facility]41:00 Test Item Value Reference Range Interpretation Comments APPEARANCE (test code = Hazy Clear A 8193922847) COLOR (test code = Yellow Yellow 7297991101) PH (test code = 4.8-8.0 7750500195) SP GRAVITY (test code = 1.003-1.030 9288142307) GLU U QUAL (test code = Normal Normal 7161811107) BLOOD (test code = 2+ Negative A 9876401832) KETONES (test code = Negative Negative 2599574105) PROTEIN (test code = Negative Negative 2887-8) UROBILIN (test code = Normal Normal 4359359738) BILIRUBIN (test code = Negative Negative 4528877853) NITRITE (test code = Negative Negative 6602721157) LEUK MARTI (test code = Negative Negative 0540014348) RBC/HPF (test code = See_Comment [Autom ated message] 5306260846) The system [employer] generated this result transmitted ref erence range: 0 - 3 HP F. The reference range was not used to int erpret this result as normal/abnormal . WBC/HPF (test code = See_Comment [Autom ated message] 0297521525) The system whic h generated this result transmitted ref erence range: 0 - 5 HP F. The reference range was not used to int erpret this result as normal/abnormal . BACTERIA (test code = Few Negative A 0301419972) MUCOUS (test code = Moderate Negative LPF A 2424573484) SQ EPITH (test code = HPF 5749463165) Lab Interpretation (test Abnormal code = 86549-7) [facility] WITH [id number] 15:37:00 Test Item Value Reference Range Interpretation Comments WBC (test code = See_Comment H [Automated 6690-2) message] The sy stem which generated this result transmitted reference range : 4.30 - 11.10 10*3/?L. The reference range was not used to interpret this result as normal/abnormal . RBC (test code = See_Comment [Automated 789-8) message] The sy stem which generated this result transmitted reference range : 3.93 - 5.25 10*6/?L. The reference range was not used to interpret this result as normal/abnormal . HGB (test code = 13.0 g/dL 11.6-15 718-7) HCT (test code = 39.3 % 35.7-45.2 4544-3) MCV (test code = 96.3 fL 80.6-95.5 H 787-2) MCH (test code = 31.9 pg 25.9-32.8 785-6) MCHC (test code = 33.1 g/dL 31.6-35.1 786-4) RDW-SD (test code = 45.4 fL 39-49.9 81841-2) RDW-CV (test code = 12.8 % 12-15.5 788-0) PLT (test code = See_Comment [Automated 777-3) message] The sy stem which generated this result transmitted reference range : 166 - 358 10*3/ ?L. The reference r armando was not used to interpret this result as normal/abnormal . MPV (test code = 10.5 fL 9.5-12.9 84955-1) NRBC/100 WBC (test See_Comment [Automat ed code = 8649090199) message] The system which generated this result transmitted reference range : 0.0 - 10.0 /100 WBCs. The refer ence range was not u sed to interpret th is result as normal/abnormal . NRBC x10^3 (test code <0.01 See_Comment [Auto mated = 2357803141) message] The s ystem which generated this result transmitted reference range : 10*3/?L. The reference range was not used to interpret this result as normal/abnormal . GRAN MAT (NEUT) % 74.0 % (test code = 770-8) IMM GRAN % (test code 0.50 % = 0431624610) LYMPH % (test code = 17.2 % 736-9) MONO % (test code = 6.9 % 5905-5) EOS % (test code = 1.0 % 713-8) BASO % (test code = 0.4 % 706-2) GRAN MAT x10^3(ANC) 9.97 10*3/uL 1.88-7.09 H (test code = 9415375088) IMM GRAN x10^3 (test 0.07 10*3/uL 0-0.06 H code = 7687202545) LYMPH x10^3 (test code 2.32 10*3/uL 1.32-3.29 = 731-0) MONO x10^3 (test code 0.93 10*3/uL 0.33-0.92 H = 742-7) EOS x10^3 (test code = 0.14 10*3/uL 0.03-0.39 711-2) BASO x10^3 (test code 0.05 10*3/uL 0.01-0.07 = 704-7) Lab Interpretation Abnormal (test code = 13244-1) [facility] W/[facility]T [facility] & AUTO DIFFERENTIAL 2017-02-01 09:41:00 Test Item Value Reference Range Interpretation Comments WHITE BLOOD CELL COUNT (BEAKER) 7.4 K/ L 4.0-10.0 (test code = 775) RED BLOOD CELL COUNT (BEAKER) 4.29 M/ L 4.00-5.00 (test code = 761) HEMOGLOBIN (BEAKER) (test code = 13.7 GM/DL 12.0-15.0 410) HEMATOCRIT (BEAKER) (test code = 40.7 % 36.0-45.0 411) MEAN CORPUSCULAR VOLUME (BEAKER) 94.8 fL 82.0-99.0 (test code = 753) MEAN CORPUSCULAR HEMOGLOBIN 31.8 pg 27.0-33.0 (BEAKER) (test code = 751) MEAN CORPUSCULAR HEMOGLOBIN CONC 33.6 GM/DL 32.0-36.0 (BEAKER) (test code = 752) RED CELL DISTRIBUTION WIDTH 12.8 % 12.0-15.0 (BEAKER) (test code = 412) PLATELET COUNT (BEAKER) (test 211 K/CU MM 150-430 code = 756) MEAN PLATELET VOLUME (BEAKER) 8.4 fL 6.5-10.5 (test code = 754) NUCLEATED RED BLOOD CELLS 0 /100 WBC 0-0 (BEAKER) (test code = 413) NEUTROPHILS RELATIVE PERCENT 59 % (BEAKER) (test code = 429) LYMPHOCYTES RELATIVE PERCENT 34 % (BEAKER) (test code = 430) MONOCYTES RELATIVE PERCENT 6 % (BEAKER) (test code = 431) EOSINOPHILS RELATIVE PERCENT 1 % (BEAKER) (test code = 432) BASOPHILS RELATIVE PERCENT 1 % (BEAKER) (test code = 437) NEUTROPHILS ABSOLUTE COUNT 4.40 K/ L 1.80-8.00 (BEAKER) (test code = 670) LYMPHOCYTES ABSOLUTE COUNT 2.50 K/ L 1.48-4.50 (BEAKER) (test code = 414) MONOCYTES ABSOLUTE COUNT (BEAKER) 0.40 K/ L 0.00-1.30 (test code = 415) EOSINOPHILS ABSOLUTE COUNT 0.10 K/ L 0.00-0.50 (BEAKER) (test code = 416) BASOPHILS ABSOLUTE COUNT (BEAKER) 0.00 K/ L 0.00-0.20 (test code = 417) BASIC METABOLIC [id number] 14:58:00 Test Item Value Reference Range Interpretation [...] PATIEN TS. CBC W/PLT COUNT & AUTO [id number] 14:40:00 Test Item Value Reference Range Interpretation [...]
[2021-06-17 21:32] LABS: Urine Blood Negative (Negative); Urine Glucose Negative (Negative); Urine Protein Negative (Negative); Urine Specific Gravity 1.025 (1.005-1.030)
[2021-06-17 22:09] LABS: Urine Bacteria 20-50 /HPF (<20); Urine Mucus 1+ /HPF (NONE SEEN); Urine RBC <5 /HPF (NONE SEEN)
[2021-06-17] MEDS ORDERED: NA CHLORIDE 0.9% 1,000 ML ONE (22:17)
[2021-06-17] MEDS ORDERED: MORPHINE 4 MG/ML SYR ONE (22:17)
[2021-06-17] MEDS ORDERED: ONDANSETRON 4 MG/2 ML VIAL ONE (22:17)
[2021-06-17 22:24] LABS: Urine Specific Gravity/Preg 1.025 (1.005-1.030)
[2021-06-17 22:58] LABS: Absolute Lymphocytes (CBC) 2.8 K/uL (0.7-4.9); Lymphocytes % 39.5 % (15.3-44.8); MPV 8.4 fL (7.6-11.3); RBC Red Blood Cell Count 4.37 M/uL (3.86-4.86)
[2021-06-17 23:08] LABS: ALT/SGPT 29 U/L (12-78); AST/SGOT 11 U/L (15-37); Albumin 3.6 g/dL (3.4-5.0); Alkaline Phosphatase 95 U/L (45-117); BUN Blood Urea Nitrogen 11 mg/dL (7-18); Bicarbonate 25 mmol/L (21-32); Bilirubin Direct < 0.1 mg/dL (0-0.2); Bilirubin Total 0.3 mg/dL (0.2-1.0); Glucose Level 95 mg/dL (74-106); Lipase 80 U/L (73-393); Potassium 4.3 mmol/L (3.5-5.1); Protein, Total 7.1 g/dL (6.4-8.2); Sodium Level 141 mmol/L (136-145)
[2021-06-17] MEDS ORDERED: PROMETHAZINE INJ 25 MG/ML AMP ONE (23:41)
[2021-06-17 23:58] LABS: SARS-COV-2 RT PCR NEGATIVE (NEGATIVE)
[2021-06-18] MEDS ORDERED: CEFTRIAXONE 1000 MG/VIAL ONE (00:19)
[2021-06-18] MEDS ORDERED: NA CHLORIDE 0.9% 100 ML ONE (00:19)
[2021-06-18] MEDS ORDERED: KETOROLAC 30 MG/ML INJ ONE (00:28)
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
--- NOTE | 2021-06-18 01:25 | EDPHYS ---
Physician Documentation [facility] Name: Chantal Navarro Age: 40 yrs Sex: Female : 1980 Arrival Date: 06/17/2021 Time: 19:39 Bed 10 Private MD: ED Physician Chadwick Blackburn HPI: 06/17 22:15 This 40 yrs old Female presents to ER via Wheelchair with complaints of Low Back Pain, mh7 Feet Swelling, Hip Pain. 22:15 The patient presents with pain that is acute, with no known mechanism of injury. The mh7 symptoms are located in the low back. The pain radiates to the right leg and left leg. The problem was sustained from unknown cause. Onset: The symptoms/episode began/occurred 2 day(s) ago. Modifying factors: The patient symptoms are alleviated by nothing, the patient symptoms are aggravated by movement, walking. Associated signs and symptoms: Pertinent positives: nausea, Pertinent negatives: abdominal pain, chest pain, constipation, dysuria, fever, headache, hematuria, incontinence, numbness, tingling, urinary retention, vomiting, weakness. Severity of symptoms: At their worst the symptoms were moderate, last night, in the emergency department the symptoms are unchanged. The patient has experienced similar episodes in the past, multiple times. 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 - Social history:: Smoking status: Reported history of juuling and/or vaping. ROS: 22:15 Constitutional: Negative for fever, chills, and weight loss, Eyes: Negative for injury, mh7 pain, redness, and discharge, ENT: Negative for injury, pain, and discharge, Neck: Negative for injury, pain, and swelling, Cardiovascular: Negative for chest pain, palpitations, and edema, Respiratory: Negative for shortness of breath, cough, wheezing, and pleuritic chest pain, : Negative for injury, bleeding, discharge, and swelling, MS/Extremity: Negative for injury and deformity, Skin: Negative for injury, rash, and discoloration, Neuro: Negative for headache, weakness, numbness, tingling, and seizure, Psych: Negative for depression, anxiety, suicide ideation, homicidal ideation, and hallucinations, Allergy/Immunology: Negative for hives, rash, and allergies, Endocrine: Negative for neck swelling, polydipsia, polyuria, polyphagia, and marked weight changes, Hematologic/Lymphatic: Negative for swollen nodes, abnormal bleeding, and unusual bruising. Exam: 22:15 Head/Face: Normocephalic, atraumatic. Eyes: Pupils equal round and reactive to light, mh7 extra-ocular motions intact. Lids and lashes normal. Conjunctiva and sclera are non-icteric and not injected. Cornea within normal limits. Periorbital areas with no swelling, redness, or edema. Neck: Trachea midline, no thyromegaly or masses palpated, and no cervical lymphadenopathy. Supple, full range of motion without nuchal rigidity, or vertebral point tenderness. No Meningismus. Chest/axilla: Normal chest wall appearance and motion. Nontender with no deformity. No lesions are appreciated. Cardiovascular: Regular rate and rhythm with a normal S1 and S2. No gallops, murmurs, or rubs. Normal PMI, no JVD. No pulse deficits. Respiratory: Lungs have equal breath sounds bilaterally, clear to auscultation and percussion. No rales, rhonchi or wheezes noted. No increased work of breathing, no retractions or nasal flaring. Abdomen/GI: Soft, non-tender, with normal bowel sounds. No distension or tympany. No guarding or rebound. No evidence of tenderness throughout. Skin: Warm, dry with normal turgor. Normal color with no rashes, no lesions, and no evidence of cellulitis. Psych: Awake, alert, with orientation to person, place and time. Behavior, mood, and affect are within normal limits. 22:15 Constitutional: The patient appears in no acute distress, alert, awake, uncomfortable. 22:15 Back: CVA tenderness, that is mild, is noted on the right, vertebral tenderness, is not mh7 appreciated, muscle spasm, is not present, Straight leg raises: pain bilaterally. 22:15 MS/ Extremity: Pulses equal, no cyanosis. Neurovascular intact. Full, normal range mh7 of motion. Neuro: Awake and alert, GCS 15, oriented to person, place, time, and situation. Cranial nerves II-XII grossly intact. Motor strength 5/5 in all extremities. Sensory grossly intact. Cerebellar exam normal. Normal gait. Vital Signs: 20:18 BP 126 / 69; Pulse 100; Resp 18; Temp 97.6(O); Pulse Ox 99% on R/A; Weight 104.33 kg; tw5 Height 5 ft. 2 in. (157.48 cm); Pain 10/10; 21:30 BP 113 / 67; Pulse 80; Resp 18; Pulse Ox 98% on R/A; mk 22:30 BP 109 / 72; Pulse 85; Resp 16; Pulse Ox 97% on R/A; mk 23:30 BP 98 / 95; Pulse 76; Resp 18; Pulse Ox 98% on R/A; mk 06/18 00:22 BP 120 / 71; Pulse 87; Resp 18; Pulse Ox 98% on R/A; mk 02:05 BP 105 / 67; Pulse 88; Resp 16; Temp 98.1; Pulse Ox 99% ; mk 01/ 20:18 Body Mass Index 42.07 (104.33 kg, 157.48 cm) tw5 Magdalene Coma Score: 00:22 Eye Response: spontaneous(4). Verbal Response: oriented(5). Motor Response: obeys mk commands(6). Total: 15. 02:05 Eye Response: spontaneous(4). Verbal Response: oriented(5). Motor Response: obeys mk commands(6). Total: 15. MDM: 01:22 Differential diagnosis: arthritis, strain, fracture, sciatica, contusion, Herniated mh7 disc UTI. Data reviewed: vital signs, nurses notes, lab test result(s), CBC, electrolytes, Flu: negative urinalysis, With negative, radiologic studies, CT scan. Data interpreted: Pulse oximetry: on room air is 98 %. Interpretation: normal. Counseling: I had a detailed discussion with the patient and/or guardian regarding: the historical points, exam findings, and any diagnostic results supporting the discharge/admit diagnosis, lab results, radiology results, the need for outpatient follow up, to return to the emergency department if symptoms worsen or persist or if there are any questions or concerns that arise at home. Response to treatment: the patient's symptoms have resolved after treatment, the patient's blood pressure is in an acceptable range, mental status has returned to baseline, the patient no longer shows bradycardia, the patient is not short of breath, the patient is not tachycardic, the patient's pain is gone, the patient's temperature has normalized, patient is well hydrated. 01:24 Patient medically screened. [facility] 06/17 21:32 Order name: Urine Microscopic Only [facility] 06/17 21:32 Order name: Urine Culture [facility] 06/17 21:32 Order name: Urine Dipstick-Ancillary; Complete Time: 21:51 EDMS 06/17 21:32 Order name: Urine Microscopic Only; Complete Time: 22:57 EDMS 06/17 21:37 Order name: Urine --Ancillary (enter results) [facility] 06/17 21:37 Order name: Urine --Ancillary; Complete Time: 22:57 EDMD 06/17 22:05 Order name: CBC with Diff [facility] 06/17 22:05 Order name: Basic Metabolic Panel [facility] 06/17 22:05 Order name: LFT's; Complete Time: 23:16 [facility] 06/17 22:05 Order name: COVID-19/FLU A+B (Document "Date of Onset" if Symptomatic); Complete Time: [facility] 00:59 06/17 22:05 Order name: CBC with Automated Diff; Complete Time: 23:16 EDMD 06/17 22:06 Order name: Basic Metabolic Panel; Complete Time: 23:16 [facility] 06/17 22:07 Order name: Lipase [facility] 06/17 21:32 Order name: Urine Test (obtain specimen); Complete Time: 21:32 [facility] 06/17 21:32 Order name: Urine Dipstick-Ancillary (obtain specimen); Complete Time: 21:32 [facility] 06/17 22:05 Order name: Saline Lock; Complete Time: 22:38 [facility] 06/17 22:07 Order name: CT Stone Protocol [facility] 06/17 22:07 Order name: Lipase; Complete Time: 23:16 [facility] 06/17 22:57 Order name: Urine Culture [facility] Administered Medications: 06/17 22:37 Drug: morphine 4 mg Route: IVP; Site: right antecubital; 06/18 00:22 Follow up: Response: Pain is unchanged, physician notified 06/17 22:37 Drug: Zofran (Ondansetron) 4 mg Route: IVP; Site: right antecubital; 06/18 00:21 Follow up: Response: No change in condition 06/17 22:38 Drug: NS 0.9% 1000 ml Route: IV; Rate: 1000 ml; Site: right antecubital; 23:08 Follow up: IV Status: Completed infusion; IV Intake: 1000ml 06/18 00:22 Follow up: Response: No adverse reaction; IV Status: Completed infusion; IV Intake: mk 1000ml 06/17 23:45 Drug: Phenergan (promethazine) 12.5 mg Route: IVP; Site: right antecubital; 06/18 00:21 Follow up: Response: No adverse reaction; Marked relief of symptoms 00:21 Drug: Rocephin (cefTRIAXone) 1 grams Route: IV; Rate: per protocol; Site: right mk antecubital; 02:09 Follow up: Response: No adverse reaction 00:43 Drug: Ketorolac 30 mg Route: IVP; Site: right antecubital; 02:09 Follow up: Response: Pain is decreased Disposition Summary: 06/18/21 01:24 Discharge Ordered Location: Home [facility] Problem: new [facility] Symptoms: have improved [facility] Condition: Stable [facility] Diagnosis - Pyelonephritis [facility] Followup: [facility] - With: Private Physician - When: 1 - 2 days - Reason: Worsening of condition, Recheck today's complaints, Continuance of care, Re-evaluation by your physician Discharge Instructions: - Discharge Summary Sheet [facility] - Pyelonephritis, Adult, [id number] [facility] Forms: - Medication Reconciliation Form [facility] - Thank You Letter [facility] - Antibiotic Education [facility] - Prescription Opioid Use [facility] Prescriptions: - ketorolac 10 mg Oral tablet - take 1 tablet by ORAL route every 6 hours As needed not to exceed 40 mg in [facility] 24hrs; 12 tablet; Refills: 0, Product Selection Permitted - ondansetron 4 mg Oral tablet,disintegrating - place 1 tablet by TRANSLINGUAL route every 8 hours As needed; 10 tablet; [facility] Refills: 0, Product Selection Permitted - Cipro 500 mg Oral Tablet - take 1 tablet by ORAL route every 12 hours for 10 days; 20 tablet; Refills: 0, 7 Product Selection Permitted Signatures: Dispatcher [employer] Lito Bansal PA PA jmm Holmes, Maurice, MD MD 7 Simin Orta RN RN ld1 Haily Iverson 5 Payton Lozada RN RN mk
[2021-06-18 02:51] VITALS: BP 105/67; TEMP 98.1; O2SAT 99
--- NOTE | 2021-06-18 12:59 | RAD REPORT ---
EXAM DESCRIPTION: CT - Stone Protocol - 06/18/2021 7:20 am CLINICAL HISTORY: 40 years Female back pain, nausea TECHNIQUE: Axial CT imaging of the abdomen and pelvis was performed without oral or intravenous cont rast. Sagittal and coronal reconstructed images were then performed. The CT study is performed acco rding to ALARA (as low as reasonably achievable) or ALARA/IMAGE GENTLY, with automatic adjustment of mA and/or kV according to patient size. Performed on: 06/17/2021 at 11:12 PM Comparison: Prior CT abdomen and pelvis report from 05/02/2019. The images were not available for yumiko marcano. FINDINGS: Lung bases: Again demonstrated is a heavily calcified nodule in the posterior left lower l obe measuring approximately 1.4 x 0.9 cm in cross-sectional diameter. The lung bases are otherwise cl ear. Liver: The liver measures approximately 20 cm in craniocaudal dimension. There is a subtle area of de creased attenuation within the right hepatic lobe (series 201, image 25) measuring approximately 1.5 cm in diameter. This is difficult to characterize without intravenous contrast. There is a probable i ncidental small hepatic cyst at the junction of the right hepatic lobe and medial segment of the left hepatic lobe. Liver attenuation is otherwise within normal limits. Spleen: The spleen is normal is size, configuration and attenuation. No focal splenic abnormalities a re appreciated on this unenhanced scan. Gallbladder and bile duct: The gallbladder is surgically absent. There is mild dilatation of the co mmon bile duct which measures approximately 7 to 8 mm in diameter. This is likely physiologic followi ng cholecystectomy. There is no CT evidence of choledocholithiasis. Pancreas: The pancreas is grossly normal in size and configuration. Adrenal Glands: The right adrenal gland is normal in size and configuration. There is a sharply deangelo nated low-density mass arising from the posterior limb of the left adrenal gland measuring approximat krystal 3.5 x 2.5 cm in cross-sectional diameter by approximately 3.3 cm in craniocaudal dimension. The d ensity measures approximately -10 Hounsfield units and is most consistent with an adrenal adenoma. Kidneys: The kidneys are normal in size and configuration. There is no evidence of hydronephrosis. Th ere is an approximately 4.0 x 3.4 cm cyst arising from the upper pole of the left kidney. There is a punctate calcification along the peripheral margin of this cyst. There is also a punctate nonobstruct ing calcification in the lower pole of the left kidney. Stomach: The stomach is grossly normal. There is no definite hiatal hernia. Bowel: The bowel gas pattern is non specific and non obstructive. Appendix: The appendix appears to be surgically absent. Free air: There is no evidence of free air. Free fluid: There is no evidence of free fluid. Vasculature: The aorta is normal in caliber and contour. The inferior vena cava is grossly unremarkab le. Lymphadenopathy: No pathologic lymphadenopathy is identified. Bladder: The bladder is well distended and smooth in contour. Reproductive: The uterus is surgically absent. Bones: No acute osseous abnormalities are identified. Soft tissues: No acute soft tissue abnormalities are identified. There is a small fat-containing vent ral umbilical hernia. IMPRESSION: 1. No evidence of acute intra-abdominal or intrapelvic pathology. 2. Hepatomegaly. 3. There is a subtle area of decreased attenuation within the right hepatic lobe measuring approxim ately 1.5 cm in diameter. This is difficult to characterize without intravenous contrast. Recommend c omparison with the previous CT studies. 4. Remote cholecystectomy, appendectomy and hysterectomy. 5. Left adrenal adenoma measuring up to 3.5 cm in greatest dimension. Similar finding reported prev iously. 6. Approximately 4 cm left renal cyst with a punctate calcification along the peripheral margin of this cyst. 7. Punctate nonobstructing calcification in the lower pole of the left kidney. 8. Densely calcified nodule in the posterior left lower lobe consistent with a granuloma 9. Small fat-containing ventral umbilical hernia. 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 The interpreting r adiologist is fully responsible for the content of the report.
== END 2021-06-18 02:09 | disposition home or self-care (01) ==
LOC: ER 19:35
DX: N12 Tubulo-interstitial nephritis, not specified as acute or chronic (principal); Z20.822 Contact with and (suspected) exposure to COVID-19
CPT/HCPCS: 0240U; 36415; 74176; 76377; 80048; 80076; 81003; 81015; 81025; 83690; 85025; 87077; 87086; 87088; 87186; 96374; 96375; 99284; J2405; J2550; J7030

== ENCOUNTER 2024-02-11 19:46 | Emergency (ER) | payer SELFPAY ==
[2024-02-11 21:12] LABS: Calcium Oxalate Crystals- Ur Moderate /HPF (None Seen); Specific Gravity 1.026 (1.005-1.030); Sqamous Epithelial <5 /HPF (None Seen); Urine Bacteria None Seen /HPF (<20); Urine Bilirubin NEGATIVE (Negative); Urine Blood Negative (Negative); Urine Clarity Turbid (Clear); Urine Color Light-Yellow (Yellow); Urine Culture Reflex Order NOT NEEDED; Urine Glucose NEGATIVE (Negative); Urine Ketones NEGATIVE (Negative); Urine Microscopic Reflex YN ORDER UMIC; Urine Mucus Slight /HPF (None Seen); Urine Nitrite NEGATIVE (Negative); Urine Protein NEGATIVE (Negative); Urine RBC <5 /HPF (None Seen); Urine Urobilinogen Normal (Normal); Urine WBC <5 /HPF (<5); Urine pH 6.5 (5.0-7.0)
[2024-02-11] MEDS ORDERED: ONDANSETRON 4 MG/2 ML VIAL ONE (22:15)
[2024-02-11] MEDS ORDERED: HYDROMORPHONE HCL 1 MG/ML INJ ONE (22:16)
[2024-02-11] MEDS ORDERED: FAMOTIDINE 20 MG/2 ML VIAL IV ONE (22:16)
[2024-02-11] MEDS ORDERED: NA CHLORIDE 0.9% 1,000 ML ONE (22:16)
[2024-02-11 22:33] LABS: MPV 8.6 fL (7.6-11.3)
[2024-02-11 22:40] LABS: Absolute Basophils 0.1 K/uL (0-0.5); Absolute Eosinophils 0.1 K/uL (0-0.5); Absolute Lymphocytes (CBC) 3.2 K/uL (0.7-4.9); Absolute Monocytes 0.6 K/uL (0.1-1.3); Absolute Neutrophil 3.1 K/uL (1.8-8.0); Basophils % 0.9 % (0-1.3); Eosinophils % 1.8 % (0-4.4); Hemoglobin 13.6 g/dL (12.0-15.0); Lymphocytes % 44.8 % (15.3-44.8); MCH 32.6 pg (27.0-35.0); MCHC 33.2 g/dL (32.0-36.0); Monocytes % 8.9 % (3.3-12.3); Neutrophils % 43.6 % (41.7-73.7); Nucleated Red Blood Cells % 0.1 % (0-0); Platelets 195 thou/uL (152-406); RBC Red Blood Cell Count 4.18 M/uL (3.86-4.86); Red Cell Distribution Width 13.8 % (12.1-15.2)
[2024-02-11 22:47] LABS: ALT/SGPT 23 U/L (13-56); Albumin 3.7 g/dL (3.4-5.0); Albumin/Globulin Ratio 1.1 (1.1-1.8); Alkaline Phosphatase 94 U/L (45-117); Anion Gap 8.9 mEq/L (5.0-15.0); BUN Blood Urea Nitrogen 16 mg/dL (7-18); Bicarbonate 25 mEq/L (21-32); Bilirubin Total 0.3 mg/dL (0.2-1.0); Globulin 3.4 g/dL (2.3-3.5); Glomerular Filtration Rate 98 ml/min (=/>90); Glucose Level 103 mg/dL (74-106); Lipase 39 U/L (13-75); Potassium 3.9 mEq/L (3.5-5.1); Protein, Total 7.1 g/dL (6.4-8.2); Sodium Level 140 mEq/L (136-145)
[2024-02-11 22:57] LABS: AST/SGOT < 10 U/L (15-37)
[2024-02-12] MEDS ORDERED: METOCLOPRAMIDE 10 MG/2mL INJ ONE
[2024-02-12] MEDS ORDERED: DIPHENHYDRAMINE 50 MG/ML VIAL ONE
[2024-02-12] MEDS ORDERED: DICYCLOMINE HCL 20 MG/2 ML AMP IM ONE (00:53)
--- NOTE | 2024-02-12 01:03 | EDPHYS ---
Physician Documentation [facility] Name: Chantal Navarro Age: 43 yrs Sex: Female : 1980 Arrival Date: 02/11/2024 Time: 19:46 Bed 20 Private MD: ED Physician Dewayne Ackerman HPI: 02/10 20:40 This 43 yrs old Female presents to ER via Ambulatory with complaints of Abdominal Pain, cp Bloody Stools. 20:40 The patient presents with abdominal pain mid and upper. cp 20:40 Onset: The symptoms/episode began/occurred this past wednesday. Associated signs and cp symptoms: Pertinent positives: diarrhea, nausea, vomiting. The symptoms are described as constant. Severity of pain: in the emergency department the pain is unchanged despite home interventions. Patient reports noticing blood in stool initially when pain started but the past couple days denies any blood in stool. 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 - Infectious Disease History:: Denies. - Social history:: Smoking status: Reported history of juuling and/or vaping. Patient uses alcohol, occasionally. ROS: 20:45 Constitutional: Positive for poor PO intake, Negative for body aches, chills, fever, cp 20:45 Eyes: Negative for injury, pain, redness, and discharge, cp 20:45 ENT: Negative for drainage from ear(s), ear pain, sore throat, difficulty swallowing, difficulty handling secretions, 20:45 Cardiovascular: Negative for chest pain, palpitations, 20:45 Respiratory: Negative for cough, shortness of breath, wheezing, 20:45 Abdomen/GI: Positive for abdominal pain, nausea and vomiting, diarrhea, Negative for constipation, black/tarry stool, rectal bleeding, 20:45 Back: Negative for pain at rest, pain with movement, 20:45 Neuro: Negative for altered mental status, dizziness, headache, syncope, weakness, 20:45 All other systems are negative, Exam: 20:50 Constitutional: The patient appears in no acute distress, alert, awake, cp non-diaphoretic, non-toxic, well developed, well nourished, uncomfortable, 20:50 Head/Face: Normocephalic, atraumatic. cp 20:50 Eyes: Periorbital structures: appear normal, Conjunctiva: normal, no exudate, no injection, Sclera: no appreciated abnormality, Lids and lashes: appear normal, bilaterally, 20:50 ENT: External ear(s): are unremarkable, Nose: is normal, Mouth: Lips: moist, Oral mucosa: pink and intact, moist, Posterior pharynx: Airway: no evidence of obstruction, patent, 20:50 Chest/axilla: Inspection: normal, 20:50 Cardiovascular: Rate: normal, Rhythm: regular, 20:50 Respiratory: the patient does not display signs of respiratory distress, Respirations: normal, no use of accessory muscles, no retractions, labored breathing, is not present, Breath sounds: are clear throughout, no decreased breath sounds, no stridor, no wheezing, 20:50 Abdomen/GI: Inspection: obese Bowel sounds: active, all quadrants, Palpation: soft, in all quadrants, severe abdominal tenderness, in all quadrants, rebound tenderness, is not appreciated, involuntary guarding, is not appreciated, 20:50 Back: CVA tenderness, is absent, 20:50 Neuro: Orientation: to person, place \T\ time. Mentation: is normal, Motor: moves all fours, strength is normal, Sensation: is normal, 22:43 ECG was reviewed by the Attending Physician. cp Vital Signs: 20:24 Temp 98.2(O); tm6 20:24 BP 123 / 95; Pulse 99; Resp 20; Pulse Ox 96% on R/A; Weight 105.23 kg; Height 5 ft. 2 tm6 in. ; Pain 8/10; 22:00 BP 138 / 79; Pulse 88; Resp 18; Temp 98.3(O); Pulse Ox 99% on R/A; Pain 9/10; rg5 02/11 00:00 BP 131 / 79; Pulse 79; Resp 17; Pulse Ox 98% on R/A; rg5 01:00 BP 127 / 78; Pulse 87; Resp 17; Temp 98; Pulse Ox 98% on R/A; Pain 2/10; rg5 02/10 20:24 Body Mass Index 42.43 (105.23 kg, 157.48 cm) tm6 20:24 Pain Scale: Adult tm6 22:00 Pain Scale: Adult rg5 01:00 Pain Scale: Adult rg5 MDM: 02/10 20:34 Patient medically screened. 23:00 Differential diagnosis: diverticulitis, pancreatitis, Peptic Ulcer Disease, Perf. cp Duodenal Ulcer, Perf. Gastric Ulcer, Pyelonephritis, Ureterolithiasis, urinary tract infection, colitis. 02/11 01:04 Data reviewed: vital signs, nurses notes, lab test result(s), radiologic studies, CT cp scan, and as a result, I will discharge patient. 01:04 I considered the following discharge prescriptions or medication management in the emergency department Medications were administered in the Emergency Department. See MAR. 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 Response to treatment: the patient's symptoms have markedly improved after treatment, and as a result, I will discharge patient. Special discussion: Based on the patient's Hx, exam, and Dx evaluation, there is no indication for emergent surgery or inpatient Tx. It is understood by the patient/guardian that if the Sx's persist or worsen they need to return immediately for re-evaluation. 02/10 20:36 Order name: CBC with Diff; Complete Time: 00:38 cp 02/10 20:36 Order name: CMP; Complete Time: 00:38 cp 02/11 01:04 Interpretation: Normal except: CL 110; AST < 10. cp 02/10 20:36 Order name: Lipase; Complete Time: 00:38 cp 02/10 20:36 Order name: Urinalysis w/ reflexes; Complete Time: 22:35 cp 02/10 22:36 Interpretation: Normal except: [facility] Turbid; UESTR 25; CAOX Cx Moderate. 02/10 22:36 Order name: CT Abd/Pelvis - IV Contrast Only cp 02/10 20:36 Order name: IV Saline Lock; Complete Time: 23:42 cp 02/10 20:36 Order name: Labs collected and sent; Complete Time: 23:42 cp 02/11 00:40 Order name: PO challenge; Complete Time: 00:57 cp EC/30 22:43 Rate is 89 beats/min. Rhythm is regular. LA interval is normal. QRS interval is normal. cp QT interval is normal. T waves are Inverted in lead aVR. Interpreted by me. Reviewed by me. Administered Medications: 21:00 Drug: NS 0.9% IV 1000 ml IV at 1 bolus Per protocol Route: IV; Rate: 1 bolus; Site: rg5 right antecubital; 02/11 01:36 Follow up: Response: No adverse reaction; IV Status: Completed infusion; IV Intake: rg5 1000ml 02/10 21:00 Drug: Famotidine IVP 20 mg IVP once; dilute with 10 mL 0.9% NaCl; give over 2 minutes rg Route: IVP; Site: right antecubital; 02/11 01:35 Follow up: Response: No adverse reaction [facility] 02/10 21:00 Drug: HYDROmorphone IVP 1 mg IVP once Route: IVP; Site: right antecubital; [facility] 02/11 01:35 Follow up: Response: No adverse reaction; Pain is decreased [facility] 02/10 23:17 Drug: Ondansetron IVP 4 mg IVP once; over 2 minutes Route: IVP; Site: right antecubital;[facility] 02/11 01:35 Follow up: Response: No adverse reaction rg5 00:15 Drug: metoCLOPramide IVP 10 mg IVP once; over 1 to 2 minutes Route: IVP; Site: right rg5 antecubital; 01:35 Follow up: Response: No adverse reaction rg5 00:15 Drug: diphenhydrAMINE IVP 25 mg IVP once Route: IVP; Site: right antecubital; rg5 01:35 Follow up: Response: No adverse reaction [facility] 00:57 Drug: Dicyclomine IM 20 mg IM once Route: IM; Site: left gluteus; 5 01:34 Follow up: Response: No adverse reaction [facility] Disposition: 02/10 21:38 I was immediately available on-site in the Emergency Department for consultation in the pr3 care of the patient. Disposition Summary: 02/12/24 01:03 Discharge Ordered Notes: Location: Home cp Problem: new cp Symptoms: have improved cp Condition: Stable cp Diagnosis - Abdominal pain, unspecified cp - Nausea with vomiting, unspecified cp - Diarrhea, unspecified cp Followup: cp - With: Maynor Dinero MD - When: 2 - 3 days - Reason: Recheck today's complaints Discharge Instructions: - Discharge Summary Sheet cp - Abdominal Pain, Adult cp - Food Choices to Help Relieve Diarrhea, Adult cp - Diarrhea, Adult cp - Nausea and Vomiting, Adult cp Forms: - Medication Reconciliation Form cp - Antibiotic Education cp - Prescription Opioid Use cp - Patient Portal Instructions cp - Leadership Thank You Letter cp Prescriptions: - dicyclomine 20 mg Oral tablet - take 1 tablet ORAL route 4 times per day; 30 tablet; Refills: 0, Product cp Selection Permitted - ondansetron 8 mg Oral Tablet,disintegrating - take 1 tablet ORAL route every 12 hours; 20 tablet; Refills: 0, Product cp Selection Permitted Addendum: 02/16/2024 10:39 I was immediately available on-site in the Emergency Department for consultation in the m s3 care of the patient. Signatures: Dispatcher [employer] EDMS Mao Dai PA PA cp Sims, Marcus, DO DO ms3 Jacquie Soliz RN RN tm6 Devon Espinal RN RN rg5 Corrections: (The following items were deleted from the chart) 02/10 20:37 20:37 CBC+H.LAB.BRZ ordered. EDMS EDMS 20:37 20:37 COMPREHENSIVE METABOLIC PANEL+C.LAB.BRZ ordered. EDMS EDMS 20:37 20:37 LIPASE+C.LAB.BRZ ordered. EDMS EDMS 20:37 20:37 Urinalysis+U.LAB.BRZ ordered. EDMS EDMS 20:37 20:37 Ova and Parasites+MR.LAB.BRZ ordered. EDMS EDMS 20:37 20:37 Rotavirus Antigen+BA.LAB.BRZ ordered. EDMS EDMS 20:37 20:37 Stool Culture+BA.LAB.BRZ ordered. EDMS EDMS 20:37 20:37 C.difficile GDH Ag \T\ Toxin AB+LAB.BRZ ordered. EDMS EDMS
--- NOTE | 2024-02-12 01:03 | ER ---
Nurse's Notes [facility] Name: Chantal Navarro Age: 43 yrs Sex: Female : 1980 Arrival Date: 02/11/2024 Time: 19:46 Bed 20 Private MD: Diagnosis: Abdominal pain, unspecified;Nausea with vomiting, unspecified;Diarrhea, unspecified Presentation: 02/10 20:24 Chief complaint: Patient states: Wednesday started to have severe stomach pain, even tm6 passed out due to pain. Had bloody BMs for 3 days, bright red and dark. Nausea, vomiting, and diarrhea. No longer having blood BMs. LUQ and LLQ pain. Lower back pain. Coronavirus screen: Vaccine status: Patient reports receiving the 2nd dose of the covid vaccine. Ebola Screen: Patient negative for fever greater than or equal to 101.5 degrees Fahrenheit, and additional compatible Ebola Virus Disease symptoms Patient denies exposure to infectious person. Patient denies travel to an Ebola-affected area in the 21 days before illness onset. No symptoms or risks identified at this time. Initial Sepsis Screen: Does the patient meet any 2 criteria? No. Patient's initial sepsis screen is negative. Does the patient have a suspected source of infection? No. Patient's initial sepsis screen is negative. Risk Assessment: Do you want to hurt yourself or someone else? Patient reports no desire to harm self or others. Onset of symptoms was February 07, 2024. 20:24 Method Of Arrival: Ambulatory tm6 20:24 Acuity: GARRETT 3 tm6 Triage Assessment: 20:26 General: Appears uncomfortable, Behavior is calm, cooperative. Pain: Complains of pain tm6 in left upper quadrant and left lower quadrant Pain does not radiate. Pain currently is 8 out of 10 on a pain scale. Quality of pain is described as sharp, stabbing, Pain began 2-3 days ago. EENT: No signs and/or symptoms were reported regarding the EENT system. Neuro: Level of Consciousness is awake, alert, obeys commands, Oriented to person, place, time, situation. Cardiovascular: Patient's skin is warm and dry. Respiratory: Airway is patent Respiratory effort is even, unlabored, Respiratory pattern is regular, symmetrical. GI: Abdomen is round Abd is soft and non tender X 4 quads. Reports diarrhea, bloody stool, nausea, Pain is 8 out of 10 on a pain scale. vomiting. : No signs and/or symptoms were reported regarding the genitourinary system. Derm: No signs and/or symptoms reported regarding the dermatologic system. Musculoskeletal: No signs and/or symptoms reported regarding the musculoskeletal system. 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 - Infectious Disease History:: Denies. - Social history:: Smoking status: Reported history of juuling and/or vaping. Patient uses alcohol, occasionally. Screenin:00 [facility] ED Fall Risk Assessment (Adult) History of falling in the last 3 months, rg5 including since admission No falls in past 3 months (0 pts) Confusion or Disorientation No (0 pts) Intoxicated or Sedated No (0 pts) Impaired Gait Yes (1 pt) Mobility Assist Device Used Yes (1 pt) Altered Elimination No (0 pt) Score/Fall Risk Level 0 - 2 = Low Risk Oriented to surroundings, Maintained a safe environment, Educated pt \T\ family on fall prevention, incl call for assistance when getting out of bed, Hourly rounding (assess needs \T\ fall precautionary measures) done. Abuse screen: Denies threats or abuse. Nutritional screening: No deficits noted. Tuberculosis screening: No symptoms or risk factors identified. Assessment: 20:45 General: Appears uncomfortable, Behavior is calm, cooperative, appropriate for age. rg5 20:45 Pain: Complains of pain in abdomen Pain currently is 9 out of 10 on a pain scale. rg5 Quality of pain is described as aching, Pain began 2-3 days ago. Is continuous. Neuro: Level of Consciousness is awake, alert, obeys commands, Oriented to person, place, time. Cardiovascular: Denies chest pain, shortness of breath. Respiratory: Airway is patent Trachea midline Respiratory effort is even, unlabored, Respiratory pattern is regular, symmetrical. GI: Abdomen is round non-distended, Bowel sounds present in left upper quadrant and left lower quadrant Guarding noted Reports lower abdominal pain, diarrhea, bloody stool, nausea. : No signs and/or symptoms were reported regarding the genitourinary system. EENT: No deficits noted. Derm: Skin is intact, Skin is dry, Skin is normal, Skin temperature is warm. Musculoskeletal: Range of motion: intact in all extremities. 22:00 Reassessment: No changes from previously documented assessment. Patient and/or family rg5 updated on plan of care and expected duration. Pain level reassessed. 23:00 Reassessment: Patient and/or family updated on plan of care and expected duration. Pain rg5 level reassessed. Patient is alert, oriented x 3, equal unlabored respirations, skin warm/dry/pink. 02/11 00:00 Reassessment: No changes from previously documented assessment. Patient and/or family rg5 updated on plan of care and expected duration. Pain level reassessed. Patient is alert, oriented x 3, equal unlabored respirations, skin warm/dry/pink. 01:00 Reassessment: Patient and/or family updated on plan of care and expected duration. Pain rg5 level reassessed. Patient is alert, oriented x 3, equal unlabored respirations, skin warm/dry/pink. Patient states feeling better. Patient states symptoms have improved. Vital Signs: 02/10 20:24 Temp 98.2(O); tm6 20:24 BP 123 / 95; Pulse 99; Resp 20; Pulse Ox 96% on R/A; Weight 105.23 kg; Height 5 ft. 2 tm6 in. ; Pain 8/10; 22:00 BP 138 / 79; Pulse 88; Resp 18; Temp 98.3(O); Pulse Ox 99% on R/A; Pain 9/10; rg5 02/11 00:00 BP 131 / 79; Pulse 79; Resp 17; Pulse Ox 98% on R/A; rg5 01:00 BP 127 / 78; Pulse 87; Resp 17; Temp 98; Pulse Ox 98% on R/A; Pain 2/10; rg5 02/10 20:24 Body Mass Index 42.43 (105.23 kg, 157.48 cm) tm6 20:24 Pain Scale: Adult tm6 22:00 Pain Scale: Adult rg5 01:00 Pain Scale: Adult rg5 ED Course: 02/10 19:50 Patient arrived in ED. gm2 19:57 [facility] cp 19:57 Dewyane Ackerman DO is Attending Physician. cp 20:26 Triage completed. tm6 20:26 Arm band placed on right wrist. tm6 21:00 Patient has correct armband on for positive identification. Bed in low position. Call rg5 light in reach. Side rails up X 1. 21:00 No provider procedures requiring assistance completed. rg5 21:59 Devon Espinal, CARLOS is Primary Nurse. rg5 22:00 Inserted saline lock: 20 gauge in right antecubital area, using aseptic technique. rg5 Blood collected. Flushed with 10 mL NS. 23:31 CT Abd/Pelvis - IV Contrast Only In Process Unspecified. EDMS 02/11 01:02 Maynor Dinero MD is Referral Physician. cp 01:34 Provided Education on: POST ER CARE. rg5 01:34 IV discontinued. rg5 Administered Medications: 02/10 21:00 Drug: NS 0.9% IV 1000 ml IV at 1 bolus Per protocol Route: IV; Rate: 1 bolus; Site: rg5 right antecubital; 02/11 01:36 Follow up: Response: No adverse reaction; IV Status: Completed infusion; IV Intake: rg5 1000ml 02/10 21:00 Drug: Famotidine IVP 20 mg IVP once; dilute with 10 mL 0.9% NaCl; give over 2 minutes rg5 Route: IVP; Site: right antecubital; 02/11 01:35 Follow up: Response: No adverse reaction rg5 02/10 21:00 Drug: HYDROmorphone IVP 1 mg IVP once Route: IVP; Site: right antecubital; rg5 02/11 01:35 Follow up: Response: No adverse reaction; Pain is decreased rg5 02/10 23:17 Drug: Ondansetron IVP 4 mg IVP once; over 2 minutes Route: IVP; Site: right antecubital;rg5 02/11 01:35 Follow up: Response: No adverse reaction rg5 00:15 Drug: metoCLOPramide IVP 10 mg IVP once; over 1 to 2 minutes Route: IVP; Site: right rg5 antecubital; 01:35 Follow up: Response: No adverse reaction rg5 00:15 Drug: diphenhydrAMINE IVP 25 mg IVP once Route: IVP; Site: right antecubital; rg5 01:35 Follow up: Response: No adverse reaction rg5 00:57 Drug: Dicyclomine IM 20 mg IM once Route: IM; Site: left gluteus; rg5 01:34 Follow up: Response: No adverse reaction rg5 Medication: 02/10 21:00 VIS not applicable for this client. rg5 Intake: 02/11 01:36 IV: 1000ml; Total: 1000ml. rg5 Outcome: 01:03 Discharge ordered by . cp 01:33 Discharged to home ambulatory, rg5 01:33 Condition: stable 01:33 Discharge instructions given to patient, Instructed on discharge instructions, follow up and referral plans. Demonstrated understanding of instructions, follow-up care, medications, Prescriptions given X 2, 01:37 Patient left the ED. rg5 Signatures: Dispatcher [employer] EDMS Mao Dai PA PA cp Mitchell, Ginger 2 Jacquie Soliz RN RN tm6 Devon Espinal RN RN rg5
[2024-02-12 02:18] VITALS: BP 127/78; TEMP 98; O2SAT 98
--- NOTE | 2024-02-14 11:40 | RAD REPORT ---
EXAM DESCRIPTION: CT - Abdomen Pelvis W Contrast - 02/12/2024 6:38 am RadLex: CT ABDOMEN PELVIS WITH IV CONTRAST CLINICAL HISTORY: 43 years Female; ABD PAIN; IV ONLY Bed Name: 20 TECHNIQUE: CT of the abdomen and pelvis with intravenous contrast. All CT scans at this facility use dose modulation, iterative reconstruction, and/or weight based dosi ng when appropriate to reduce radiation dose to as low as reasonably achievable. COMPARISON: CT abdomen pelvis 07/16/2021 FINDINGS: Lower thorax: Mild bibasilar atelectasis. Left lower lobe calcified granuloma. Abdomen: Stomach: Within normal limits Liver: Scattered subcentimeter hypodensities, too small to characterize. Hyperattenuating lesion in t he right hepatic lobe near the hepatic dome measuring 1.6 cm (series 201, image 12). No intrahepatic ductal distention. Gallbladder: Surgically absent. Pancreas: Within normal limits Spleen: Within normal limits Right kidney: No hydronephrosis. Subcentimeter hypodensities, too small to characterize. Left kidney: No hydronephrosis. 2 mm renal stone. Multiple renal cysts noted. Adrenal glands: Left adrenal lesion measuring 3.5 cm with attenuation of 42HU. Vascular structures: Within normal limits Nodes: No lymphadenopathy by size criteria Pelvis: Small bowel: No significant distention. Appendix: Not visualized. Colon: No distention or acute pericolonic edema. Peritoneum: No free intraperitoneal fluid or air. Bones: No acute bone findings. Bladder: Unremarkable. Reproductive organs: No acute findings. IMPRESSION: 1. No acute abdominopelvic findings. 2. Left-sided nephrolithiasis. No hydronephrosis. 3. Left adrenal mass measuring 3.5 cm, probable benign adenoma. Recommend adrenal washout CT or evon mical shift MRI. 4. Indeterminate hyperattenuating lesion in the right hepatic lobe near the hepatic dome measuring 1.6 cm. Recommend nonemergent multiphasic liver MR for further evaluation. Electronically signed by: Jake Lujan MD 02/12/2024 12:08 AM CDT Z9 Due to temporary technical issues with the PACS/Fluency reporting system, reports are being signed by the in house radiologist without review as a courtesy to ensure prompt reporting. The interpreting r adiologist is fully responsible for the content of the report.
--- NOTE | 2024-02-15 12:48 | EKG ---
Test Date: 2024-02-11 Test Time: 22:38:58 Estate Planning Counselor: AF MEASUREMENT RESULTS: Intervals: Rate: 89 NE: 162 QRSD: 76 QT: 370 QTc: 450 [place]: P: 68 NE: 162 QRS: 67 T: 72 INTERPRETIVE STATEMENTS: Normal sinus rhythm Normal ECG Compared to ECG 09/27/2018 14:13:34 Sinus tachycardia no longer present Myocardial infarct finding no longer present Electronically Signed On 02-15-24 12:42:16 CDT by Keyon Kauffman
== END 2024-02-12 01:37 | disposition home or self-care (01) ==
LOC: ER 19:46
DX: R10.10 Upper abdominal pain, unspecified (principal); R11.2 Nausea with vomiting, unspecified; R19.7 Diarrhea, unspecified
CPT/HCPCS: 36415; 74177; 80053; 81001; 83690; 85025; 93005; 96361; 96372; 96374; 96375; 99284; J0500; J1170; J1200; J2405; J2765; J7030; Q9967

== ENCOUNTER 2024-03-22 18:41 | Emergency (ER) | payer OTHER ==
[2024-03-22] MEDS ORDERED: ONDANSETRON 4 MG/2 ML VIAL ONE (19:29)
[2024-03-22] MEDS ORDERED: NA CHLORIDE 0.9% 1,000 ML ONE (19:30)
[2024-03-22] MEDS ORDERED: KETOROLAC 30 MG/ML INJ ONE (19:30)
[2024-03-22 19:31] LABS: Absolute Eosinophils 0.4 K/uL (0-0.5); Absolute Lymphocytes (CBC) 2.3 K/uL (0.7-4.9); Absolute Monocytes 0.5 K/uL (0.1-1.3); Absolute Neutrophil 2.8 K/uL (1.8-8.0); Basophils % 0.7 % (0-1.3); Eosinophils % 6.2 % (0-4.4); Hematocrit 35.9 % (36.0-45.0); Hemoglobin 12.2 g/dL (12.0-15.0); Lymphocytes % 38.5 % (15.3-44.8); MPV 8.2 fL (7.6-11.3); Monocytes % 8.9 % (3.3-12.3); Neutrophils % 45.7 % (41.7-73.7); Nucleated Red Blood Cells % 0.2 % (0-0); Platelets 194 thou/uL (152-406); Red Cell Distribution Width 13.5 % (12.1-15.2)
[2024-03-22 19:39] LABS: Specific Gravity 1.026 (1.005-1.030); Urine Bilirubin NEGATIVE (Negative); Urine Blood Negative (Negative); Urine Clarity Clear (Clear); Urine Color Light-Yellow (Yellow); Urine Glucose NEGATIVE (Negative); Urine Ketones NEGATIVE (Negative); Urine Microscopic Reflex YN NO UMIC; Urine Nitrite NEGATIVE (Negative); Urine Protein NEGATIVE (Negative); Urine Urobilinogen Normal (Normal)
[2024-03-22 19:41] LABS: Specific Gravity 1.026 (1.005-1.030)
[2024-03-22 19:46] LABS: ALT/SGPT 28 U/L (13-56); Albumin 3.3 g/dL (3.4-5.0); Albumin/Globulin Ratio 0.9 (1.1-1.8); Alkaline Phosphatase 113 U/L (45-117); BUN Blood Urea Nitrogen 18 mg/dL (7-18); Bicarbonate 25 mEq/L (21-32); Bilirubin Total 0.2 mg/dL (0.2-1.0); Globulin 3.6 g/dL (2.3-3.5); Glomerular Filtration Rate 105 ml/min (=/>90); Glucose Level 102 mg/dL (74-106); Lipase 54 U/L (13-75); Protein, Total 6.9 g/dL (6.4-8.2); Sodium Level 140 mEq/L (136-145)
[2024-03-22 19:50] LABS: AST/SGOT < 10 U/L (15-37)
--- NOTE | 2024-03-22 20:56 | RAD REPORT ---
EXAMINATION: CT Abdomen Pelvis W Contrast CLINICAL INDICATION: Female, 43 years old. ABD PAIN TECHNIQUE: CT abdomen and pelvis was performed, after the administration of IV contrast, as [facility]. Axial, sagittal and coronal reconstructions were obtained. One or more of the following dose reduction techniques were used: Automated exposure control, adjustment of the mA and k V according to patient size, and iterative reconstruction. Unless otherwise specified, incidental findings do not require dedicated imaging follow-up. COMPARISON: 02/11/2024 FINDINGS: LOWER CHEST: The visualized lung bases are clear. Calcified posterior left costophrenic angle 1.4 cm granuloma, stable LIVER: Normal in size and contour. Small upper right lobe lesions with nodular enhancement largest me asuring 1.8 cm, stable may suggest small hemangiomas. Other subcentimeter hypoattenuating lesions throughout the liver are not well characterized given size, may represent small cysts. BILIARY SYSTEM: Status post cholecystectomy. SPLEEN: Normal size. No focal lesion. PANCREAS: No mass, ductal dilation, or devon-pancreatic fluid. ADRENALS: Stable left adrenal hypoattenuating 3.9 cm mass. KIDNEYS: Normal size and contour. No hydronephrosis. Multiple cortical cysts, including a lobulated p osterior cortex 3.8 cm cyst on the left with marginal calcifications, stable in appearance. URINARY BLADDER: Suboptimally distended limiting evaluation. GASTROINTESTINAL TRACT: No evidence of free air, significant intra-abdominal free fluid, bowel obstru ction or abscess. Mild to moderate stool burden throughout the colon. APPENDIX: Normal appendix. LYMPH NODES: No lymphadenopathy. MUSCULOSKELETAL: No acute or suspicious osseous abnormality. ADDITIONAL FINDINGS: None. IMPRESSION: Mild to moderate stool burden throughout the colon. No other acute or concerning abnormalities seen in the abdomen or pelvis. Stable incidental findings as above.
--- NOTE | 2024-03-22 20:58 | RAD REPORT ---
EXAMINATION: US RIGHT LOWER EXTREMITY VENOUS DOPPLER CLINICAL INDICATION: [facility] right leg PAIN Bed Name: 7 Y TECHNIQUE: Complete bilateral duplex sonography of the RIGHT lower extremity veins was performed. The examination included compression for vein patency, color Doppler imaging and flow augmentation in response to distal compression of the distal external iliac, common femoral, femoral, popliteal, tibi al, and great and small saphenous veins. COMPARISON: No prior exam. FINDINGS: Duplex sonography testing of the veins of the RIGHT lower extremity was performed. Color flow imaging shows all veins to be compressible with [id number] color filling. Pulsatile and phasic flow is present within all lower extremity deep and superficial veins examined. IMPRESSION: No evidence of deep venous thrombosis.
--- NOTE | 2024-03-22 21:13 | RAD REPORT ---
EXAM: Knee Right 3 View HISTORY: [facility] MAIN PAIN Bed Name: 7 COMPARISON: None TECHNIQUE: 3 views of the left knee were obtained. FINDINGS: No knee effusion is seen. There is no evidence of acute fracture or dislocation. Right tota l knee arthroplasty hardware, in satisfactory alignment. No soft tissue swelling or other soft tissue abnormality is present. IMPRESSION: No evidence of acute osseous abnormality.
--- NOTE | 2024-03-22 21:25 | ER ---
Nurse's Notes [facility] Name: Chantal Navarro Age: 43 yrs Sex: Female : 1980 Arrival Date: 03/22/2024 Time: 18:41 Bed 7 Private MD: Diagnosis: Constipation;Pain in right knee Presentation: 03/22 18:55 Chief complaint: Patient states: Had total R knee surgery 3 weeks ago. Has had ll1 constipation for 2 weeks with nausea. Coronavirus screen: Client denies travel out of the [place] in the last 14 days. At this time, the client does not indicate any symptoms associated with coronavirus-19. Ebola Screen: Patient denies travel to an Ebola-affected area in the 21 days before illness onset. Initial Sepsis Screen: Does the patient meet any 2 criteria? No. Patient's initial sepsis screen is negative. Does the patient have a suspected source of infection? No. Patient's initial sepsis screen is negative. Risk Assessment: Do you want to hurt yourself or someone else? Patient reports no desire to harm self or others. Onset of symptoms was March 10, 2024. 18:55 Method Of Arrival: Wheelchair ll1 18:55 Acuity: GARRETT 3 ll1 Triage Assessment: 18:57 General: Appears uncomfortable, Behavior is calm, cooperative, appropriate for age. ll1 Pain: Complains of pain in R knee Quality of pain is described as aching. GI: Reports constipation, rectal bleeding, nausea. Musculoskeletal: Reports pain in R knee. Historical: - Allergies: 18:46 No Known Drug Allergies; ll1 - PMHx: 18:46 chronic neck and back pain; Depression; ll1 - PSHx: 18:46 ablation of the nerves in back; Appendectomy; Cholecystectomy; Total abdominal ll1 hysterectomy; 18:55 R total knee replacement; ll1 - Immunization history:: Adult Immunizations up to date. - Infectious Disease History:: Denies. - Social history:: Smoking status: Patient denies any tobacco usage or history of. Screenin:06 [facility] ED Fall Risk Assessment (Adult) History of falling in the last 3 months, me1 including since admission No falls in past 3 months (0 pts) Confusion or Disorientation No (0 pts) Intoxicated or Sedated No (0 pts) Impaired Gait Yes (1 pt) Mobility Assist Device Used Yes (1 pt) Altered Elimination No (0 pt) Score/Fall Risk Level 0 - 2 = Low Risk Maintained a safe environment, Provided non-skid footwear, Hourly rounding (assess needs \T\ fall precautionary measures) done. Abuse screen: Denies threats or abuse. Nutritional screening: No deficits noted. Tuberculosis screening: No symptoms or risk factors identified. Assessment: 19:06 General: Appears uncomfortable, well groomed, well developed, well nourished, Behavior me1 is calm, cooperative, appropriate for age, Reports Had total R knee surgery 3 weeks ago. Has had constipation for 2 weeks with nausea. Pain: Complains of pain in right knee Pain does not radiate. Pain currently is 8 out of 10 on a pain scale. Quality of pain is described as aching, Pain began gradually, Is continuous. Neuro: Level of Consciousness is awake, alert, obeys commands, Oriented to person, place, time, situation, Appropriate for age. Cardiovascular: Patient's skin is warm and dry. Respiratory: Airway is patent Respiratory effort is even, unlabored, Respiratory pattern is regular, symmetrical. GI: Abdomen is round Bowel sounds present X 4 quads. Abd is soft X 4 quads. : No signs and/or symptoms were reported regarding the genitourinary system. EENT: No signs and/or symptoms were reported regarding the EENT system. Derm: Wound noted right knee Wound is healed surgical incision. Musculoskeletal: Reports pain in right knee. 20:37 Reassessment: Provider okayed pt to take her home medications for pain. jb4 21:20 Reassessment: Patient appears in no apparent distress at this time. Patient and/or jb4 family updated on plan of care and expected duration. Pain level reassessed. Patient is alert, oriented x 3, equal unlabored respirations, skin warm/dry/pink. Vital Signs: 18:55 BP 109 / 96; Pulse 98; Resp 18; Temp 98.8; Pulse Ox 96% on R/A; ll1 21:20 BP 129 / 71; Pulse 88; Resp 16; Pulse Ox 97% on R/A; jb4 ED Course: 18:44 Patient arrived in ED. mr 18:46 [facility] Groves [facility]C [facility] kb 18:46 Boogie Shoemaker MD is Attending Physician. kb 18:46 Arm band placed on Patient placed in an exam room, on a stretcher. ll1 18:57 Triage completed. ll1 19:02 Urvashi Shay, RN is Primary Nurse. me1 19:06 Patient has correct armband on for positive identification. Bed in low position. Call me1 light in reach. Side rails up X 1. Provided Education on: POC. Verbalized understanding.. Client placed on continuous cardiac and pulse oximetry monitoring. NIBP monitoring applied. Pulse ox on. NIBP on. 19:06 No provider procedures requiring assistance completed. me1 19:28 Initial lab(s) drawn, by me, sent to lab. Urine collected: clean catch specimen, clear. me1 Inserted saline lock: 22 gauge in right antecubital area, using aseptic technique. 20:02 US Extremity Venous Unilateral Ltd In Process Unspecified. EDMS 20:16 CT Abd/Pelvis - IV Contrast Only In Process Unspecified. EDMS 20:37 Knee Right 3 View XRAY In Process Unspecified. EDMS 21:36 IV discontinued, intact, bleeding controlled, No redness/swelling at site. Pressure jb4 dressing applied. Administered Medications: 19:34 Drug: NS 0.9% IV 1000 ml IV at 1 bolus Per protocol; 1000 mL bolus Route: IV; Rate: 1 me1 bolus; Site: right antecubital; 21:35 Follow up: Response: No adverse reaction; IV Status: Infusion discontinued due to jb4 discharge.; IV Intake: 500ml 19:34 Drug: TORadol - Ketorolac IVP 15 mg IVP once Route: IVP; Site: right antecubital; me1 20:00 Follow up: Response: No adverse reaction; Pain is unchanged, physician notified me1 19:34 Drug: Ondansetron IVP 4 mg IVP once; over 2 minutes Route: IVP; Site: right antecubital;me1 20:00 Follow up: Response: No adverse reaction; Nausea is decreased me1 21:29 Drug: Magnesium Citrate PO Liquid 300 ml PO once Route: PO; jb4 21:29 Follow up: Response: Medication administered at discharge. jb4 Medication: 19:06 VIS not applicable for this client. me1 Intake: 21:35 IV: 500ml; Total: 500ml. jb4 Outcome: 21:25 Discharge ordered by . kb 21:35 Discharged to home ambulatory, with family, jb4 21:35 Condition: stable 21:35 Discharge instructions given to patient, Instructed on discharge instructions, follow up and referral plans. Demonstrated understanding of instructions, follow-up care, 21:36 Patient left the ED. jb4 Signatures: Dispatcher [employer] EDMI Jessy Groves, RN ANGIOGRAPHY-C RN ANGIOGRAPHY-Ckb Arnold, Amber, Reg Reg mr Abhijeet Ortega, RN RN jb4 Jaimie Bianchi RN RN ll1 Urvashi Shay RN RN me1 Corrections: (The following items were deleted from the chart) 18:57 18:55 Chief complaint: Patient states: Had total R knee surgery 3 weeks ago. Has had ll1 constipation for 2 weeks with nausea. Stools have had blood in it for over 1 month. ll1 19:06 18:55 Chief complaint: Patient states: Had total R knee surgery 3 weeks ago. Has had me1 constipation for 2 weeks with nausea. ll1
--- NOTE | 2024-03-22 21:25 | EDPHYS ---
Physician Documentation [facility] Name: Chantal Navarro Age: 43 yrs Sex: Female : 1980 Arrival Date: 03/22/2024 Time: 18:41 Bed 7 Private MD: ED Physician Boogie Shoemaker HPI: 03/22 22:40 This 43 yrs old Female presents to ER via Wheelchair with complaints of Knee Pain, kb Fever, Constipation. 22:40 pt is a 43 year old female who is 3 weeks postop from total knee replacement who kb presents for right knee pain and constipation. States last bm was 2 weeks ago. Reports knee pain has been worse over the last few days and she had increased swelling to right leg yesterday. . Historical: - Allergies: 18:46 No Known Drug Allergies; ll1 - PMHx: 18:46 chronic neck and back pain; Depression; ll1 - PSHx: 18:46 ablation of the nerves in back; Appendectomy; Cholecystectomy; Total abdominal ll1 hysterectomy; 18:55 R total knee replacement; ll1 - Immunization history:: Adult Immunizations up to date. - Infectious Disease History:: Denies. - Social history:: Smoking status: Patient denies any tobacco usage or history of. ROS: 22:38 Constitutional: As per HPI kb Exam: 22:38 Constitutional: This is a well developed, well nourished patient who is awake, alert, kb and in no acute distress. Head/Face: Normocephalic, atraumatic. ENT: Moist Mucous membranes Cardiovascular: Regular rate Respiratory: Respirations even and unlabored. No increased work of breathing. Talking in full sentences Abdomen/GI: Soft, non-tender. No distention Back: No spinal tenderness. No costovertebral tenderness. Full range of motion. Skin: Warm, dry with normal turgor. Normal color. Neuro: Awake and alert, GCS 15, oriented to person, place, time, and situation. Moves all extremities. Normal gait. 22:38 Musculoskeletal/extremity: Extremities: grossly normal except: noted in the right knee: pain, swelling, tenderness, well healed surgical incision, ROM: intact in all extremities, Circulation is intact in all extremities. Sensation intact. Vital Signs: 18:55 BP 109 / 96; Pulse 98; Resp 18; Temp 98.8; Pulse Ox 96% on R/A; ll1 21:20 BP 129 / 71; Pulse 88; Resp 16; Pulse Ox 97% on R/A; jb4 MDM: 18:46 Patient medically screened. kb 22:39 Differential diagnosis: bowel obstruction, constipation, postop pain, dvt. Data kb reviewed: vital signs, nurses notes. Historians other than the Patient: Parent: father. Counseling: I had a detailed discussion with the patient and/or guardian regarding the historical points, exam findings, and any diagnostic results supporting the discharge/admit diagnosis, lab results, radiology results, the need for outpatient follow up, a family practitioner, to return to the emergency department if symptoms worsen or persist or if there are any questions or concerns that arise at home. 03/22 19: Order name: CBC with Diff; Complete Time: 19:35 kb 03/22 19: Order name: CMP; Complete Time: 19:51 kb 03/22 19: Order name: Lipase; Complete Time: 19:51 kb 03/22 19: Order name: Test, Urine; Complete Time: 19:42 kb 03/22 19:09 Order name: Urinalysis w/ reflexes; Complete Time: 19:42 kb 03/22 19:09 Order name: US Extremity Venous Unilateral Ltd; Complete Time: 21:05 kb 03/22 19:09 Order name: Knee Right 3 View XRAY; Complete Time: 21:16 kb 03/22 19:09 Order name: CT Abd/Pelvis - IV Contrast Only; Complete Time: 20:57 kb 03/22 19:09 Order name: IV Saline Lock; Complete Time: 19:28 kb 03/22 19: Order name: Labs collected and sent; Complete Time: 19:28 kb Administered Medications: 19:34 Drug: NS 0.9% IV 1000 ml IV at 1 bolus Per protocol; 1000 mL bolus Route: IV; Rate: 1 me1 bolus; Site: right antecubital; 21:35 Follow up: Response: No adverse reaction; IV Status: Infusion discontinued due to jb4 discharge.; IV Intake: 500ml 19:34 Drug: TORadol - Ketorolac IVP 15 mg IVP once Route: IVP; Site: right antecubital; me1 20:00 Follow up: Response: No adverse reaction; Pain is unchanged, physician notified me1 19:34 Drug: Ondansetron IVP 4 mg IVP once; over 2 minutes Route: IVP; Site: right antecubital;me1 20:00 Follow up: Response: No adverse reaction; Nausea is decreased me1 21:29 Drug: Magnesium Citrate PO Liquid 300 ml PO once Route: PO; jb4 21:29 Follow up: Response: Medication administered at discharge. jb4 Disposition Summary: 03/22/24 21:25 Discharge Ordered Notes: Location: Home kb Condition: Stable kb Diagnosis - Constipation kb - Pain in right knee kb Followup: kb - With: Emergency Department - When: As needed - Reason: Worsening of condition Followup: kb - With: Private Physician - When: 2 - 3 days - Reason: Recheck today's complaints, Continuance of care, Re-evaluation by your physician Discharge Instructions: - Discharge Summary Sheet kb - Constipation, Adult, [id number] kb - Acute Knee Pain, Adult, [id number] kb Forms: - Medication Reconciliation Form kb - Antibiotic Education kb - Prescription Opioid Use kb - Patient Portal Instructions kb - Leadership Thank You Letter kb Addendum: 03/24/2024 07:45 I was immediately available for consultation during this patient's visit. I did not e c2 personally see the patient or discuss the patient with the DIEGO. . Signatures: Dispatcher [employer] Jessy Peters, LIZETH-Yazmin INMANP-Abhijeet Gomez RN RN jb4 Jaimie Biancih RN RN ll1 Urvashi Shay RN RN me1 Boogie Shoemaker MD MD ec2 Corrections: (The following items were deleted from the chart) 03/22 19:10 19:10 CBC+H.LAB.BRZ ordered. EDMS EDMS 19:10 19:10 COMPREHENSIVE METABOLIC PANEL+C.LAB.BRZ ordered. EDMS EDMS 19:10 19:10 LIPASE+C.LAB.BRZ ordered. EDMS EDMS 19:10 19:10 Test, Urine+UC.LAB.BRZ ordered. EDMS EDMS 19:10 19:10 Urinalysis+U.LAB.BRZ ordered. EDMS EDMS
[2024-03-22] MEDS ORDERED: MAGNESIUM CITRATE 300 ML BOT ONE (21:28)
[2024-03-23 00:14] VITALS: TEMP 98.8
[2024-03-23 00:15] VITALS: BP 129/71; O2SAT 97
== END 2024-03-22 21:36 | disposition home or self-care (01) ==
LOC: ER 18:41
DX: K59.00 Constipation, unspecified (principal); M25.561 Pain in right knee; Z96.651 Presence of right artificial knee joint
CPT/HCPCS: 85025; 36415; 81025; 81003; 83690; 80053; 74177; 73562; 93971; Q9967; J2405; J7030